=== PATIENT | female | born 1950 | race Caucasian/White ===

== ENCOUNTER → 2019-12-07 | Outpatient (CLI) | payer MEDICARE ==
[~2019-12-07] MED LIST: ACID1TAB PO; ATOR1TAB19 PO; CIPR750T2 PO; LIDOCAINE 1% MDV 20ML VIAL As Ordered ONE; LOSA100T50 PO; METO1TAB32 PO; NITR-67 PO; OMEP40CA97 PO; OXYB5TAB10 PO; SODIUM BICARBONATE 8.4% INJ 50MEQ 50 ML VIAL As Ordered ONE; TIZA2CAP PO; VITA500030 PO
[2019-12-07 11:24] VITALS: BP 168/72
--- NOTE | 2019-12-07 20:13 | REP ---
CT-guided para cannula abscess drainage The procedure is performed by NORA Baum, under the direct supervision of Dr. Fowler. The risks and benefits of the procedure were explained to the patient and informed consent was obtained both orally and written. Directly prior to the start of the procedure, a formal timeout was done in the exam room. The pelvic abscess was localized using CT guidance. Skin was prepped and draped in the usual sterile fashion. Approximately 15 ml of buffered lidocaine was used as a local anesthetic. Using CT guidance and 8-Amharic multi side-hole pigtail catheter was inserted and advanced into the abscess. Approximately 15 ml of brown pus was obtained and sent to the lab further analysis. Dr. Nolen was called and asked about placing the patient on the post procedural antibiotic. The patient will be followed up with Dr. Nolen and is office. CT images obtained directly after the biopsy showed the to to be in good placement. After the appropriate amount of monitored convalescence the patient was discharged from the department. Reviewed by NORA Vasquez 12/07/2019 04:39 P Electronically Signed by Reji Fowler MD 12/07/2019 08:03 P
== END ==
LOC: M IRPRO 07:59
PROVIDERS: ATTEND Surgery
DX: K65.1 Peritoneal abscess (principal)

== ENCOUNTER → 2019-12-22 | Outpatient (CLI) | payer MEDICARE ==
[~2019-12-22] MED LIST changes: +GASTROGRAFIN SOLUTION 30ML (Q9963) As Ordered ONE; +ISOVUE-370 76% 100ML VIAL (Q9967) As Ordered ONE; -SODIUM BICARBONATE 8.4% INJ 50MEQ 50 ML VIAL As Ordered ONE
--- NOTE | 2019-12-22 10:07 | REP ---
CT ABDOMEN PELVIS WITH IV AND ORAL CONTRAST: HISTORY: Vesicointestinal fistula. Comparison is made with outside CT study from November 11, [address] guided percutaneous catheter drainage images from December 07, 2019. The patient has a diverticular abscess along the superior wall of the bladder with bladder gas consistent with fistula. A percutaneous catheter was placed December 07, 2019. CT CONTRAST DOSE: 100 mL of intravenous Isovue [address] FINDINGS: Digital preliminary field scout radiographs demonstrate that the percutaneous pigtail catheter has partially withdrawn or dislodged and is seen in the anterior abdominal wall subcutaneous space. Bowel gas pattern is normal. On axial CT images, the lung bases are clear. There is a small subcentimeter cyst in the left lobe of the liver. Post cholecystectomy clips are seen. No focal hepatic or splenic mass lesion is observed. No adrenal abnormality is seen. There are bilateral parapelvic renal cysts. There are also small cortical renal cysts. No hydronephrosis is appreciated. Normal appendix is seen. No retroperitoneal mass or adenopathy is observed. Small and large bowel loops are unremarkable in the upper abdomen. Pelvic CT images demonstrate mild persistent mural thickening of the diverticular segment of sigmoid colon. There is some persistent pericolonic streaking. The percutaneously placed pigtail catheter is indeed partially dislodged out into the anterior subcutaneous space. The anterior supravesical abscess cavity is decreased in size from November 11, 2019 but persists. It measures 3.9 cm anterior-posterior x 3.1 cm right to left x 2.9 cm cranial to caudal. It contains fluid and gas. Its wall is thickened particularly along the interface with the urinary bladder. There is an air-fluid level in the urinary bladder lumen again noted as well consistent with the clinical history of colovesical fistula. Uterus is surgically absent. There is no evidence of free intraperitoneal air. No new fluid collection is seen. IMPRESSION: 1. The recently placed percutaneous drainage catheter has partially dislodged into the anterior subcutaneous space. The catheter is no longer within the supravesical abscess. 2. The supravesical abscess cavity is decreased in size compared to the November 11, 2019 but persists measuring 3.9 x 3.1 x 2.9 cm. 3. Air-fluid level persists in the urinary bladder consistent with a history of a colovesical fistula. Electronically Signed by Reji Fowler MD 12/22/2019 11:00 A
[2019-12-22 16:20] VITALS: BP 128/66
--- NOTE | 2019-12-23 09:15 | REP ---
CT-GUIDED PELVIC ABSCESS DRAIN The procedure was performed under the direct supervision of Dr. Mcclain. The patient has a pelvic abscess which was drained previously on 12/07/2019. The drain became dislodged. The patient is referred for reinsertion of a drainage catheter into the pelvic abscess. The risks and benefits of the procedure were explained to the patient and informed consent was obtained. The existing catheter was removed. The pelvic abscess was localized using CT guidance. The skin was prepped and draped in a sterile fashion. 1% lidocaine was used as a local anesthetic. Using CT guidance an 8-Polish Skater APDL catheter was inserted using trocar technique. 25 ml of beige/red colored fluid was withdrawn and sent to the lab for analysis. The abscess cavity was flushed with four 5 ml aliquots of sterile saline. The catheter was affixed to the skin and a sterile dressing was applied. The catheter was connected to a gravity drainage bag. The patient tolerated the procedure well and there were no immediate complications. After the appropriate amount of monitored convalescence the patient was discharged from the department. Electronically Signed by NORA Mario 12/22/2019 05:07 P Electronically Signed by Ez Mcclain MD 12/23/2019 09:05 A
== END ==
LOC: M RAD 07:00
PROVIDERS: ATTEND Surgery
DX: N32.1 Vesicointestinal fistula (principal); K65.1 Peritoneal abscess
CPT/HCPCS: 74177; 77012; 87070; 87075; 87076; 87077; 87186; 87205; Q9963; Q9967

== ENCOUNTER 2020-01-01 12:12 | Emergency (ER) | payer MEDICARE ==
[~2020-01-01] VITALS: Ht 167.6 cm; Wt 96.6 kg
[~2020-01-01 12:12] MED LIST changes: -GASTROGRAFIN SOLUTION 30ML (Q9963) As Ordered ONE; -ISOVUE-370 76% 100ML VIAL (Q9967) As Ordered ONE; -LIDOCAINE 1% MDV 20ML VIAL As Ordered ONE
[2020-01-01 13:26] LABS: BASO # 0.1 10^3/uL (0.0-0.2); BASO % 1.2 % (0.0-1.0); EOS # 0.2 10^3/uL (0.0-0.5); EOS % 4.9 % (0.0-3.0); HEMATOCRIT 30.4 % (36.0-47.0); HEMOGLOBIN 9.8 g/dl (12.0-15.5); LYMPH # 1.4 10^3/uL (1.5-5.0); LYMPH % 31.5 % (24.0-44.0); MEAN CORPUSCULAR HEMOGLOBIN 27.8 pg (27.0-33.0); MEAN CORPUSCULAR HGB CONC 32.2 g/dl (32.0-36.5); MEAN CORPUSCULAR VOLUME 86.4 fl (80.0-96.0); MONO # 0.3 10^3/uL (0.0-0.8); MONO % 7.2 % (0.0-5.0); NEUTROPHILS # 2.4 10^3/uL (1.5-8.5); NEUTROPHILS % 54.5 % (36.0-66.0); PLATELET COUNT, AUTOMATED 269 10^3/uL (150-450); RED BLOOD COUNT 3.52 10^6/uL (4.00-5.40); WHITE BLOOD COUNT 4.3 10^3/uL (4.0-10.0)
[2020-01-01 14:01] LABS: ALBUMIN 3.1 GM/DL (3.2-5.2); BILIRUBIN,TOTAL 0.3 MG/DL (0.2-1.0); CALCIUM LEVEL 9.1 MG/DL (8.8-10.2); CREATININE FOR GFR 0.99 MG/DL (0.55-1.30); GLOMERULAR FILTRATION RATE 59.2 (>45); POTASSIUM SERUM 4.3 MEQ/L (3.5-5.1)
[2020-01-01] MEDS ORDERED: ISOVUE-370 76% 100ML VIAL (Q9967) As Ordered ONE (14:04)
[2020-01-01 15:03] VITALS: BP 147/63
--- NOTE | 2020-01-01 15:47 | REP ---
HISTORY: Followup pelvic abscess. COMPARISON: Percutaneous abscess CT guided drainage images of 12/07/2019, preprocedural CT of 11/11/2019 and the latest prior contrast enhanced CT of 12/22/2019. Those images include a reinsertion of the drainage catheter obtained during repeat CT guided tube placement. CONTRAST: 100 mL Isovue-370 FINDINGS: The lung bases remain clear. No pleural or pericardial effusions have developed. There is no significant change in the appearance of the liver, spleen, pancreas, adrenal glands or kidneys. Bilateral renal parapelvic cysts, status quo. There is no significant change in the appearance of the abdominal aorta or periaortic regions. There is no significant change in the appearance of the intraabdominal bowel loops or their mesenteries. There is no evidence of free intraperitoneal air in the abdomen. CT PELVIS: Since the latest prior exam, the pelvic drainage tube draining a known suprapubic abscess appears essentially unchanged when compared to the post procedural CT guided drainage tube placement of 12/22/2019. There has been no evidence of increase in the abscess at this time, although a significant amount of phlegmonous material remains in the left anterior hemipelvis abutting the urinary bladder. Note is again made of a large amount of air density within the urinary bladder consistent with the patient's known history of colovesical fistula. I see no definite evidence of free air in the pelvis. There is sigmoid colon diverticulosis, status quo. No free pelvic fluid has developed. No pelvic sidewall adenopathy has developed. Bone window technique throughout the exam shows no evidence of significant change in the appearance of the osseous structures. There is air density in the extrapelvic anterior adipose tissue along the drainage tube, but that air density does not communicate with the intrapelvic contents and is localized. IMPRESSION: 1. Pelvic drainage tube in place as described above without evidence of worsening pelvic abscess. 2. Other findings as described above. Electronically Signed by Abdias Michelle DO 01/01/2020 04:00 P
== END 2020-01-01 15:05 | disposition home or self-care (01) ==
LOC: M ED 12:12
DX: T85.628A Displacement of other specified internal prosthetic devices, implants and grafts, initial encounter (principal); Y92.9 Unspecified place or not applicable; Y93.9 Activity, unspecified; I10 Essential (primary) hypertension; K57.92 Diverticulitis of intestine, part unspecified, without perforation or abscess without bleeding; Z87.891 Personal history of nicotine dependence; N32.1 Vesicointestinal fistula; Z79.899 Other long term (current) drug therapy; Z91.89 Other specified personal risk factors, not elsewhere classified
CPT/HCPCS: 74177; 80053; 85025; 99284; Q9967

== ENCOUNTER 2020-01-07 07:03 | Day surgery (SDC) | payer MEDICARE ==
[~2020-01-07] VITALS: Ht 165.1 cm; Wt 96.2 kg
[~2020-01-07 07:03] MED LIST changes: +IBUP200C25 PO; +LR 1,000 ML IV ONE; +NS 1,000 ML IV SCH
[2020-01-07] MEDS ORDERED: LIDOCAINE 2% INJ 100 MG/5 ML SDV (FOR ANES.) As Ordered ONE (09:36)
[2020-01-07] MEDS ORDERED: propofoL 200 MG/20 ML VIAL As Ordered ONE ×3 (09:36→10:29)
--- NOTE | 2020-01-07 10:48 | ROOR ---
Patient Name: Maria De Jesus Claudio Procedure Date: 01/07/2020 6:48 AM Date of : 1950 Age: 69 Room: [facility] Gender: Female Note Status: Finalized Procedure: Colonoscopy Indications: Abnormal CT of the GI tract, Suspected diverticulitis, colovesical fistula/chronic abscess Providers: Balwinder Nolen MD Referring MD: 1. No Referring Physician 1. No Referring Physician, Admin. Requesting Provider: Medicines: Monitored Anesthesia Care Complications: No immediate complications. Procedure: Pre-Anesthesia Assessment: - Prior to the procedure, a History and Physical was performed, and patient medications and allergies were reviewed. The patient is competent. The risks and benefits of the procedure and the sedation options and risks were discussed with the patient. All questions were answered and informed consent was obtained. Patient identification and proposed procedure were verified by the physician, the nurse and the wing mailer machine operator in the procedure room. Mental Status Examination: alert and oriented. Airway Examination: normal oropharyngeal airway and neck mobility. Respiratory Examination: clear to auscultation. CV Examination: normal. Prophylactic Antibiotics: The patient does not require prophylactic antibiotics. Prior Anticoagulants: The patient has taken no previous anticoagulant or antiplatelet agents. ASA Grade Assessment: III - A patient with severe systemic disease. After reviewing the risks and benefits, the patient was deemed in satisfactory condition to undergo the procedure. The anesthesia plan was to use monitored anesthesia care (MAC). Immediately prior to administration of medications, the patient was re-assessed for adequacy to receive sedatives. The heart rate, respiratory rate, oxygen saturations, blood pressure, adequacy of pulmonary ventilation, and response to care were monitored throughout the procedure. The physical status of the patient was re-assessed after the procedure. The Colonoscope was introduced through the anus and advanced to the cecum, identified by appendiceal orifice and ileocecal valve. The colonoscopy was technically difficult and complex due to multiple diverticula in the colon and restricted mobility of the colon. The patient tolerated the procedure well. The quality of the bowel preparation was good. Findings: Hemorrhoids were found on perianal exam. Evidence for diverticulosis, partial narrowing, fixed colon at expected/suspected site of diverticulitis/colovesical fistula starting at about 20 cms to 30 cms, with mucoid discharge, no evidence for intraluminal active infection/erythema, purulent discharge. No increase in air/output from percutaneous drain. A few scattered diverticula over descending and ascending colon A diminutive polyp was found in the transverse colon. The polyp was flat. The polyp was removed with a cold snare. Resection and retrieval were complete. Estimated blood loss was minimal. No additional abnormalities were found on retroflexion. Impression: - Hemorrhoids found on perianal exam. - Moderate diverticulosis in the sigmoid colon, in the descending colon and in the ascending colon. There was narrowing of the colon in association with the diverticular opening. There was no evidence of diverticular bleeding. - One diminutive polyp in the transverse colon, removed with a cold snare. Resected and retrieved. Recommendation: - Discharge patient to home (ambulatory). - Follow up with me as scheduled next week. Plan for colon resection to be scheduled/determined. continue drain. Refill abx . Balwinder Nolen MD Balwinder Nolen MD 01/07/2020 10:48:07 AM Electronically signed by Balwinder Nolen MD Number of Addenda: 0 Note Initiated On: 01/07/2020 6:48 AM Estimated Blood Loss: Estimated blood loss was minimal.
[2020-01-07 11:10] VITALS: BP 118/50
== END 2020-01-07 11:43 | disposition home or self-care (01) ==
LOC: M OPP 07:03
PROVIDERS: ATTEND Surgery
DX: K64.9 Unspecified hemorrhoids (principal); D12.6 Benign neoplasm of colon, unspecified; K57.30 Diverticulosis of large intestine without perforation or abscess without bleeding; R93.3 Abnormal findings on diagnostic imaging of other parts of digestive tract; Z91.048 Other nonmedicinal substance allergy status

== ENCOUNTER 2020-01-28 06:08 | Inpatient (IN) | payer MEDICARE ==
[~2020-01-28] VITALS: Ht 165.1 cm; Wt 95.3 kg
[2020-01-28] VITALS (8 sets, daily range): BP systolic 109–122; BP diastolic 59–68; O2SAT 95
[~2020-01-28 06:08] MED LIST changes: +LIDOCAINE 1% MDV 20ML VIAL SQ PRN; -LR 1,000 ML IV ONE; -NS 1,000 ML IV SCH; +SULF1TAB93 PO
[2020-01-28] MEDS ORDERED: cefoTEtan DISODIUM 2 GM in D5W MINI-BAG PLUS 50 ML IV ONE (06:15)
[2020-01-28] MEDS ORDERED: ALVIMOPAN 12 MG CAPSULE (ENTEREG) PO ONE (06:15)
[2020-01-28] MEDS ORDERED: HEPARIN SOD (PORCINE) 5000UNITS/ML VIAL (J1644 PER 1000UNITS) SQ ONE (06:15)
[2020-01-28] MEDS ORDERED: LR 1,000 ML IV ONE (06:15)
[2020-01-28] MEDS ORDERED: metroNIDAZOLE 500 MG in IV 1 EA IV ONE (06:15)
[2020-01-28] MEDS ORDERED: MIDAZOLAM INJ 2MG/2ML VIAL (J2250 PER 1MG) As Ordered ONE (07:03)
[2020-01-28] MEDS ORDERED: fentaNYL 250 MCG/5 ML INJECTION (J3010) As Ordered ONE (07:03)
[2020-01-28] MEDS ORDERED: propofoL 200 MG/20 ML VIAL As Ordered ONE (07:04)
[2020-01-28] MEDS ORDERED: LIDOCAINE 2% 100MG/5ML SDV (FOR ANES.) As Ordered ONE (07:04)
[2020-01-28] MEDS ORDERED: ONDANSETRON 4MG/2ML VIAL As Ordered ONE (07:04)
[2020-01-28] MEDS ORDERED: ePHEDrine SULFATE 25 MG/5 ML(5MG/ML) SYRINGE As Ordered ONE ×2 (07:04→08:51)
[2020-01-28] MEDS ORDERED: PHENYLephrine HCL 500 MCG/5 ML (100MCG/ML) SYRINGE (J2370) As Ordered ONE ×3 (07:04→12:45)
[2020-01-28] MEDS ORDERED: SUGAMMADEX SODIUM 500 MG/5 ML VIAL (BRIDION) As Ordered ONE (07:04)
[2020-01-28] MEDS ORDERED: ROCURONIUM BROMIDE 50 MG/5 ML VIAL As Ordered ONE ×2 (07:04→08:33)
[2020-01-28] MEDS ORDERED: dexameTHASONE 4 MG/ML 1ML VIAL (J1100 PER 1MG) As Ordered ONE (07:04)
[2020-01-28] MEDS ORDERED: BUPIVACAINE HCL 0.25% 30ML VIAL As Ordered ONE (07:13)
[2020-01-28] MEDS ORDERED: LIDOCAINE 1% SDV 30ML VIAL As Ordered ONE (07:13)
[2020-01-28] MEDS ORDERED: CONRAY-60 60% 50ML VIAL (Q9961) As Ordered ONE (07:13)
[2020-01-28] MEDS ORDERED: BUPIVACAINE LIPOSOME/PF 1.3% 20ML VIAL (13.3MG/ML)(EXPAREL)(C9290 PER1MG) As Ordered ONE (08:00)
[2020-01-28] MEDS ORDERED: NEOM500T (08:03)
[2020-01-28] MEDS ORDERED: GNP650TA8 PO (08:03)
[2020-01-28] MEDS ORDERED: METR-265 (08:03)
[2020-01-28] MEDS ORDERED: HYDROmorphone HCL 2 MG/ML 1ML VIAL (J1170) As Ordered ONE (09:22)
--- NOTE | 2020-01-28 09:34 | RO ---
DATE OF PROCEDURE: 01/28/2020 PREPROCEDURE DIAGNOSIS: Diverticulitis, colovesical fistula. POSTPROCEDURE DIAGNOSIS: Diverticulitis, colovesical fistula. PROCEDURE: Cystoscopy, left ureteral stent placement. SURGEON: Dr. Aaron Muniz LONG TERM CARE SOCIAL WORKER: None. ANESTHESIA: General. OPERATIVE INDICATIONS: This is a 69-year-old female who has had diverticulitis and a colovesical fistula who was brought to the operating room today by Dr. Nolen for bowel resection. Given the location of the fistula in the left side of the bladder, urology was asked to place a left sided ureteral stent to help identify the ureter. DESCRIPTION OF PROCEDURE: The patient was brought to the operating room and general anesthesia was induced. Prophylactic antibiotics were infused. She was then placed in dorsal lithotomy position and prepped and draped in the usual sterile fashion. At this point, a rigid cystoscope was inserted into the urethral meatus and advanced into the bladder. The bladder was then thoroughly examined. Of note, there was a moderate sized bullous mass at the dome of the bladder on the left side. There was no active drainage from this mass. It did not appear to be anywhere near the ureteral orifices. Both ureteral orifices were orthotopic. At this point, I inserted a 5 [place] open ended ureteral catheter into the left ureteral orifice and then advanced it up into the left collecting system. I then removed the cystoscope and inserted an [address] [place]undian 3- way catheter. The 5 [place]undian open ended ureteral catheter was then tied down to the 3-way catheter using an 0 silk suture. The 3-way catheter was connected to gravity drainage and the irrigation port of the catheter was connected to cystoscopy tubing. I then injected 2 mL of ICG into the left collecting system using the ureteral catheter. I left a syringe hooked up to the ureteral catheter and this marked the conclusion of my portion of the procedure. I then turned case over to Dr. Nolen for him to perform his procedure. Estimated blood loss: 0 mL. Complications: None. Specimen: None. Plan: Dr. Nolen will utilize the ICG and the ureteral catheter to help identify the left ureter intraoperatively. He can then remove the ureteral catheter postoperatively. [facility]
[2020-01-28] MEDS ORDERED: GLUCAGON INJ 1MG VIAL As Ordered ONE (11:46)
[2020-01-28] MEDS: LR 1,000 ML IV SCH ×2 (13:22→21:06)
[2020-01-28] MEDS ORDERED: oxyCODONE 5MG TAB PO PRN ×2 (13:30)
[2020-01-28] MEDS ORDERED: MORPHINE 4 MG/ML 1ML VIAL/SYRINGE (J2270) IV PRN (13:30)
[2020-01-28] MEDS ORDERED: ONDANSETRON 4MG/2ML VIAL IV PRN ×2 (13:30→14:00)
[2020-01-28] MEDS ORDERED: fentaNYL 100 MCG/2 ML INJECTION (J3010) IV PRN (14:00)
[2020-01-28] MEDS ORDERED: PERCOCET 5MG/325MG TAB PO PRN (14:00)
[2020-01-28] MEDS: ACETAMINOPHEN TAB 650MG DOSE (2X325MG) PO SCH ×3 (14:00→21:05)
[2020-01-28] MEDS ORDERED: METOCLOPRAMIDE INJ 10MG/2ML VIAL (J2765 PER 1) IV PRN (14:00)
[2020-01-28] MEDS ORDERED: LR 1,000 ML IV SCH (14:00)
[2020-01-28] MEDS: KETOROLAC 30 MG/ML 1ML VIAL IV SCH ×2 (16:07→23:57)
[2020-01-28] MEDS: OMEPRAZOLE 20 MG CAP PO SCH (17:52)
[2020-01-28] MEDS: cefoTEtan DISODIUM 1 GM in D5W MINI-BAG PLUS 50 ML IV SCH (20:10)
[2020-01-28] MEDS: ALVIMOPAN 12 MG CAPSULE (ENTEREG) PO SCH (20:11)
[2020-01-28] MEDS: oxyBUTYnin 5 MG TAB PO SCH (20:11)
[2020-01-28] MEDS: ATORVASTATIN 10 MG TAB PO SCH (20:11)
[2020-01-28] MEDS ORDERED: CALCIUM CARBONATE 500 MG CHEW U/D PO PRN (21:00)
[2020-01-28] MEDS ORDERED: CALCIUM CARBONATE 500 MG CHEW U/D PO ONE (21:00)
[2020-01-28] MEDS: metroNIDAZOLE 500 MG in IV 1 EA IV SCH (21:06)
[2020-01-29] MEDS: ACETAMINOPHEN TAB 650MG DOSE (2X325MG) PO SCH ×6 (01:42→21:06)
[2020-01-29 02:15] VITALS: BP 101/55
[2020-01-29] MEDS: LR 1,000 ML IV SCH ×2 (05:09→17:13)
[2020-01-29] MEDS: metroNIDAZOLE 500 MG in IV 1 EA IV SCH ×3 (05:09→21:05)
[2020-01-29 06:00] VITALS: BP 102/54
[2020-01-29] MEDS: KETOROLAC 30 MG/ML 1ML VIAL IV SCH ×3 (08:08→23:31)
[2020-01-29] MEDS: OMEPRAZOLE 20 MG CAP PO SCH (08:08)
[2020-01-29] MEDS: LOSARTAN 50MG TABLET PO SCH (08:09)
[2020-01-29] MEDS: ENOXAPARIN 40MG/0.4ML SYRINGE (J1650 PER 10MG) SC SCH (08:09)
[2020-01-29] MEDS: METOPROLOL SUCC *XL* 25MG TAB (TopROL *XL*) PO SCH (08:09)
[2020-01-29] MEDS: oxyBUTYnin 5 MG TAB PO SCH ×2 (08:09→20:05)
[2020-01-29] MEDS: ALVIMOPAN 12 MG CAPSULE (ENTEREG) PO SCH ×2 (08:09→20:05)
[2020-01-29 08:10] LABS: BASO % 0.1 % (0.0-1.0); EOS % 0.1 % (0.0-3.0); HEMATOCRIT 27.9 % (36.0-47.0); HEMOGLOBIN 8.8 g/dl (12.0-15.5); LYMPH # 0.9 10^3/uL (1.5-5.0); LYMPH % 11.6 % (24.0-44.0); MEAN CORPUSCULAR HEMOGLOBIN 28.1 pg (27.0-33.0); MEAN CORPUSCULAR HGB CONC 31.5 g/dl (32.0-36.5); MEAN CORPUSCULAR VOLUME 89.1 fl (80.0-96.0); MONO # 0.5 10^3/uL (0.0-0.8); MONO % 6.6 % (0.0-5.0); NEUTROPHILS # 6.2 10^3/uL (1.5-8.5); NEUTROPHILS % 81.1 % (36.0-66.0); PLATELET COUNT, AUTOMATED 144 10^3/uL (150-450); RED BLOOD COUNT 3.13 10^6/uL (4.00-5.40); WHITE BLOOD COUNT 7.7 10^3/uL (4.0-10.0)
[2020-01-29 08:38] LABS: CALCIUM LEVEL 8.2 MG/DL (8.8-10.2); CREATININE FOR GFR 1.5 MG/DL (0.55-1.30); GLOMERULAR FILTRATION RATE 36.7 (>45); POTASSIUM SERUM 4.4 MEQ/L (3.5-5.1)
--- NOTE | 2020-01-29 09:31 | IPNPDOC ---
Subjective General Date/Time Seen The patient was seen on 01/29/20 at 09:28. Subject Chief Complaint/History The patient is a 69-year-old female admitted with a reason for visit of Diverticulitis/Colovesical Fistula. Patient doing well at postop day 1 following her sigmoid colon resection. She reports feeling comfortable with minimal pain at the incision. She is tolerating clears. No passage of flatus yet. She denies any nausea or vomiting. No acute events overnight. Current Medications Current Medications Current Medications Medications (Trade) Dose Ordered Sig/Gene Route PRN Reason Start Time Stop Time Status Last Admin Dose Admin Acetaminophen (Tylenol Tab) 650 mg Q4H PO 01/28/20 14:00 01/29/20 05:09 Alvimopan (Entereg) 12 mg BID PO 01/28/20 21:00 02/02/20 20:59 01/29/20 08:09 Atorvastatin Calcium (Lipitor) 10 mg QHS PO 01/28/20 21:00 01/28/20 20:11 Calcium Carbonate (Tums) 1,000 mg Q6HP PRN PO HEARTBURN 01/28/20 21:00 Cefotetan Disodium 1 gm/ Dextrose 50 ml @ 100 mls/hr Q12H IV 01/28/20 20:00 01/28/20 20:10 Enoxaparin Sodium (Lovenox) 40 mg DAILY SC 01/29/20 09:00 01/29/20 08:09 Fentanyl Citrate (Sublimaze) 25 mcg Q5MP PRN IV PAIN LEVEL 5-10 01/28/20 14:00 01/28/20 15:00 DC Ketorolac Tromethamine (ToRADol) 30 mg Q8H IV 01/28/20 16:00 02/02/20 15:59 01/29/20 08:08 Lactated Ringer's 1,000 ml @ 100 mls/hr Q10H IV 01/28/20 14:00 01/28/20 15:00 DC Lactated Ringer's 1,000 ml @ 125 mls/hr Q8H IV 01/28/20 13:22 01/29/20 05:09 Lidocaine HCl (LIDOCAINE 1% MDV 20ml) 0.1 ml ONCE PRN SQ DISCOMFORT BEFORE IV START 01/28/20 06:00 01/28/20 13:47 DC Losartan Potassium (Cozaar) 100 mg DAILY PO 01/29/20 09:00 01/29/20 08:09 Metoclopramide HCl (REGLAN INJection) 10 mg Q6HP PRN IV NAUSEA OR VOMITING 01/28/20 14:00 01/28/20 15:00 DC Metoprolol Succinate (TopROL XL) 25 mg DAILY PO 01/29/20 09:00 01/29/20 08:09 Metronidazole 500 mg/IV Miscellaneous Supplies 100 ml @ 100 mls/hr Q8H IV 01/28/20 21:00 01/29/20 05:09 Morphine Sulfate (Morphine Sulfate Inj) 4 mg Q4H PRN IV severe pain 01/28/20 13:30 Omeprazole (PriLOSEC) 40 mg DAILY PO 01/28/20 09:00 01/29/20 08:08 Ondansetron HCl (ZOFRAN INJection) 4 mg Q4HP PRN IV NAUSEA OR VOMITING 01/28/20 14:00 01/28/20 15:00 DC Ondansetron HCl (ZOFRAN INJection) 4 mg Q6HP PRN IV NAUSEA OR VOMITING 01/28/20 13:30 Oxybutynin Chloride (Ditropan) 5 mg BID PO 01/28/20 21:00 01/29/20 08:09 Oxycodone HCl (Roxicodone, Oxyir) 5 mg Q6H PRN PO MILD/MODERATE PAIN (PS 1-7) 01/28/20 13:30 Oxycodone HCl (Roxicodone, Oxyir) 10 mg Q6H PRN PO SEVERE PAIN (PS 8-10) 01/28/20 13:30 01/28/20 16:08 Oxycodone/ Acetaminophen (Percocet 5mg/ 325mg Tablet) 1 tab ASDIRECTED PRN PO PAIN LEVEL 1-4 01/28/20 14:00 01/28/20 15:00 DC Allergies Coded Allergies: TAPE (Verified Allergy, Intermediate, "SKIN COMES OFF", 01/18/20) Objective Physical Examination Examination GENERAL APPEARANCE: Patient looks comfortable. SKIN: Warm and moist. HEENT: Normocephalic, atraumatic. [place] palpebral conjunctiva, anicteric sclerae. Lips and mucosa appear moist. NECK: Supple, no thyromegaly. No obvious jugular venous distention. LUNGS: Clear to auscultation bilaterally. No wheezing appreciated. HEART: No chest wall abnormalities. Regular rate and rhythm with no murmurs appreciated. ABDOMEN: Abdomen is minimally distended, soft, active bowel sounds. Port sites covered with Dermabond, clean dry and intact including the extraction site. Drain is serosanguineous. Minimal tenderness along the extraction site as well as suprapubic/lower abdominal wall where the abscess is. No redness at for the abscess was. EXTREMITIES: Extremities have no deformities. No edema identified. Vital Signs Vital Signs Date Time Temp Pulse Resp B/P (MAP) Pulse Ox O2 Delivery O2 Flow Rate FiO2 01/29/20 08:09 76 102/54 01/29/20 06:00 97.9 16 95 Room Air 01/29/20 02:15 2.0 I&Os I&O- Last 24 Hours up to 6 AM 01/29/20 06:00 Intake Total 4590 ml Output Total 1925 ml Balance 2665 ml Laboratory Data Labs 24H Laboratory Tests 2 01/29/20 07:37: Immature Granulocyte % (Auto) 0.5, Neutrophils (%) (Auto) 81.1H, Lymphocytes (%) (Auto) 11.6L, Monocytes (%) (Auto) 6.6H, Eosinophils (%) (Auto) 0.1, Basophils (%) (Auto) 0.1, Neutrophils # (Auto) 6.2, Lymphocytes # (Auto) 0.9L, Monocytes # (Auto) 0.5, Eosinophils # (Auto) 0.0, Basophils # (Auto) 0.0, Nucleated Red Blood Cells % (auto) 0.0, Anion Gap 7L, Glomerular Filtration Rate 36.7L, Calc ium Level 8.2L CBC/BMP Laboratory Tests 01/29/20 07:37 Impression POD1 Robotic Assisted Laparoscopic Sigomoid Colectomy, drainage of abscess, takedown of colovesical fistula anemia postop - multifactorial from postop bloodloss and hemodilutin from fluids given intraop and periop (>3L). baseline is only 9.8, not symptomaic doing well ambulate the hallways today come down on IVF soft diet continue with pain regimen, dvt prophylaxis keep smith -periop, bladder involvement in colovesical fistula Plan / VTE VTE Prophylaxis Ordered?: Yes Plan / Urinary Catheter Reason for insertion/continuin: Perioperative AYALA ROSARIO MD Jan 29, 2020 09:31
[2020-01-29] MEDS: cefoTEtan DISODIUM 1 GM in D5W MINI-BAG PLUS 50 ML IV SCH ×2 (09:34→20:05)
[2020-01-29 10:00] VITALS: BP 110/60
[2020-01-29 14:00] VITALS: BP 110/54
--- NOTE | 2020-01-29 15:54 | ROOPDOC ---
[facility] Report Of Operation Report of Operation DATE OF PROCEDURE: 01/28/20 PREPROCEDURE DIAGNOSES: colovesical fistula, diverticulitis. POSTPROCEDURE DIAGNOSES: colovesical fistula, diverticulitis with abscess. PROCEDURE: Robotic assisted laparoscopic sigmoid colon resection, evacuation of abscess. Bilateral Transversus abdominal plane block (TAP) under laparoscopic guidance. Use of ICG/firefly for identification of the ureter, perfusion testing Flexible sigmoidoscopy Partial release of splenic flexure laparoscopically SURGEON: Balwinder Nolen MD ETL TESTER: Deborah Best NP provided intraoperative on field assistance for instrument exchange, retraction, suctioning, and specimen extraction and port site and the extraction site closure :Dr. Urbano Jesus who helped with the proctocolic anastomosis and intraoperative flexible sigmoidoscopy ANESTHESIA: General Anesthesia TAP block with mixture of 1/4% marcaine, exparel and 20 mL saline ESTIMATED BLOOD LOSS: Approximately 100 mL. COMPLICATIONS: none. REMARKS: Patient is a 69 F with a history of fecaluria, passing gas with urination found to have evidence for pericolic abscess, colovesical fistula, colonoscopy findings of diverticulosis. She has had percutaneous drainage of her abscess done twice and has had prolonged antibiotic course without resolution of her symptoms. She is now for sigmoid colectomy, takedown of her colovesical fistula today. PROCEDURE NOTE: adhered and inflamed midsigmoid colon adhered to the anterior abdominal wall, dome of the bladder with an abdominal wall abscess containing food fragments and fecalith. Rectum appears soft and healthy, descending colon with minimal diverticulosis, likewise healthy. DESCRIPTION OF PROCEDURE: Patient received Cipro T10 2 grams IV and metronidazole 500 mg IV for wound prophylaxis. She received 5000 units of heparin subcutaneously for DVT prophylaxis. She underwent full mechanical as well as antibiotic bowel prep the night prior. She is compression boots and Kade's for DVT prophylaxis. She is under general anesthesia in the lithotomy position. She underwent cystoscopy with placement of a left ureteral stent. Cystoscopy reveals inflammation at the dome of the bladder with no involvement of the trigone. 2 mL of ICG was injected to the ureter stent. We paused for a surgical timeout using both pre-incision safety checklist to verify correct patient, procedure site and additional clinical information prior to beginning the procedure. I initially entered the abdomen a couple of cms on her left upper quadrant area via a Veress needle intra-abdominally placement was confirmed with saline drop technique. CO2 insufflation started to pressure 15 mmHg. Using the same incision an 8 mm robotic trocar was placed under direct vision of a 5mm laparoscope. The area underneath the insertion site was inspected for injury and none was found. An initial diagnostic laparoscopy was performed. There was no free fluid. She has thick omentum covering most of the bowels. The midportion of the sigmoid noted to be adhered to the lower abdominal wall at the midline precluding view of the pelvis. The involved abdominal wall as internal bulging as well as signs of chronic inflammation consistent with the most likely the pocket of abscess that we are appreciating on CT. The descending colon appears mildly distended. She was placed on the steep Trendelenburg position at about 20, with the left side tilted upwards about another 8. The robotic trochars were placed roughly about a fist apart with the 12 mm stapler trocar 2 cm medial to the level of the right ASIS and the left-sided ports stacked up obliquely towards the right upper quadrant area. A 5 mm assist port was placed in between the umbilical and right lower quadrant port. The da [place]ira robot tower is then maneuvered into place with the patient's right side and the trochars were docked onto the robotic arms. The robotic instruments were placed into view. An 8 mm 30 laparoscope, tips of fenestrated grasper, force bipolar forceps and initially laparoscopic scissors connected to a monopolar cautery and then later on vessel sealer was used and 60 mm sure form stapler with a green load was used. I then scrubbed to control of the camera and instruments at the surgeon's console while my insurance assistant remains in the field managing the robot, instruments, arms and retraction. The small bowel was retracted out of view. I worked on mostly bluntly dissecting the mid sigmoid colon from the lower abdominal wall. Once we broke through the capsule of the abscess there was drainage of pus as well as extruded food materials and the fecalith. Once the sigmoid colon was fully free I could mobilize the colon and further evaluate the distal sigmoid and rectum. The rectum appears healthy and soft and pliable. Using ICG and firefly the course of the ureter along the pelvic sidewall and left retroperitoneum was visualized during the dissection. I started my colon dissection by freeing up the lateral attachments of the sigmoid colon along the left gutter and the peritoneal reflection of the sigmoid mesentery off the pelvic side wall with attention to the course of the left ureter. I then switched my colon dissection with a medial to lateral approach coming underneath the course of the superior rectal artery coming off from the DANTE. The DANTE was skeletonized past the branching of the left colic artery to preserve the left colic artery. This was divided with vessel sealer. Proceeding distally I opened up the peritoneal reflection on the right side or medial side of the mesentery and the rest of the see Anneliese mesentery was divided to enter the mesorectal plane as we approached the proximal rectum. Dissection was continued to the top of the rectum where it appears healthy and pliable. At this stage we then shifted proximally dissecting the descending colon off its lateral attachments to the left sidewall and retroperitoneum along the white line of Toldt. The descending colon itself was only minimal diverticulosis and appears pliable and healthy oblique minimally thickened. I chose an area just off the confluence of the descending colon and sigmoid colon as my line of transection. The mesentery along this site was divided to the colon wall. ICG was used to pinpoint the line of transection making sure we have adequate perfusion to the stump of the colon were transection will occur. This was then divided with a 45 mm stapler with blue load. We then switched back to the rectum distally. The rectum was transanally dilated with the EEA sizers and distally the rectum could only accommodate a 25 mm EEA sizer. 1 mg of glucagon was given and we did not get much further dilation. Thus I chose 25 mm EEA stapler. The rectum was transected with a vessel sealer and the EEA was introduced transanally and the anvil retrieved. The stump of the rectum was then closed with a firing of the 45 mm stapler with a green load. To gain more length the left-sided colon was freed up to the level of the splenic flexure with partial release of the splenic flexure laterally, posteriorly and partially medially but the IMV was preserved. The descending colon length was noted to be adequate after this. The descending colon was opened up removing the staple line with the robotic scissors using Bovie cautery. The anvil was then placed through to the descending colon stump and secured with a pursestring suture using 20V LOC. The epiploic appendage as well as excess adipose tissue to the stump of the descending colon was thinned out and a second layer of 20V locked suture was used to cinch the anvil in place. At this point as my insurance assistant was trying to reintroduce the EEA stapler transanally. Difficulty maneuvering through one of the curvatures of the rectum and had to free up the rectum anterolaterally over the left side to allow for better passage of the stapler. The spike of the stapler was then deployed anterior to the staple line. The anvil and the stapler was assembled, closed and fired. The stapler was retrieved and the anastomotic donuts were inspected and noted to be intact, robust in thickness. Flexible sigmoidoscopy was performed with insufflation along the anastomosis which was tested under water to look for the cage as well as to assess the staple line for health. There was minimal oozing at the staple line which stopped by itself. The 2 ends of the colon appears healthy. There was no bubbling or leakage noted during the test. ICG was again used to visualize adequate perfusion in 2 ends of the bowel. I again looked at the anterior abdominal wall were abscess pocked was then opened this further internally with further drainage of now mostly bloody fluid and I got more food debris from this area. At this point I scrubbed back in. I chose to extract over at the umbilical port site to avoid the abscess pocket on the lower mid abdomen. A 4 cm incision was created and deepened through to the subcutaneous tissue. The anterior and posterior fascia was opened and a True wound retractor was placed. The sigmoid colon specimen was retrieved. A 19 Brodie drain was placed with the drain coming out through the right lower quadrant port and the drain coursing just posterior to the anastomosis. The incision was then closed in layers with 2-0 Vicryl to close the posterior sheath and 1 Vicryl used to close the anterior fascia in a mattress fashion. The subcutaneous space was irrigated. The abdomen was then deflated. The drain was secured to the skin.. all skin incisions were closed with 4-0 monocryl in a subcuticular fashion and dermabond placed for dressing. Patient tolerated the procedure well. She was promptly awakened, extubated and brought to recovery room in stable condition. The Rosenberg catheter remain in place for postoperative monitoring. BALWINDER NOLEN MD Jan 29, 2020 15:54
[2020-01-29] MEDS: ATORVASTATIN 10 MG TAB PO SCH (20:05)
[2020-01-29 20:55] VITALS: BP 118/59
[2020-01-30] MEDS: ACETAMINOPHEN TAB 650MG DOSE (2X325MG) PO SCH ×6 (01:21→21:36)
[2020-01-30 01:54] VITALS: O2SAT 94
[2020-01-30 02:00] VITALS: BP 120/62
[2020-01-30] MEDS: LR 1,000 ML IV SCH (03:24)
[2020-01-30] MEDS: metroNIDAZOLE 500 MG in IV 1 EA IV SCH (05:27)
[2020-01-30 05:35] VITALS: BP 154/82
[2020-01-30 07:28] LABS: BASO % 0.5 % (0.0-1.0); EOS # 0.1 10^3/uL (0.0-0.5); EOS % 0.8 % (0.0-3.0); HEMATOCRIT 29.2 % (36.0-47.0); HEMOGLOBIN 9.5 g/dl (12.0-15.5); LYMPH # 0.7 10^3/uL (1.5-5.0); LYMPH % 11.1 % (24.0-44.0); MEAN CORPUSCULAR HEMOGLOBIN 28.9 pg (27.0-33.0); MEAN CORPUSCULAR HGB CONC 32.5 g/dl (32.0-36.5); MEAN CORPUSCULAR VOLUME 88.8 fl (80.0-96.0); MONO # 0.5 10^3/uL (0.0-0.8); MONO % 7.5 % (0.0-5.0); NEUTROPHILS # 5.2 10^3/uL (1.5-8.5); NEUTROPHILS % 79.5 % (36.0-66.0); PLATELET COUNT, AUTOMATED 146 10^3/uL (150-450); RED BLOOD COUNT 3.29 10^6/uL (4.00-5.40); WHITE BLOOD COUNT 6.6 10^3/uL (4.0-10.0)
[2020-01-30 07:49] LABS: CALCIUM LEVEL 8.6 MG/DL (8.8-10.2); CREATININE FOR GFR 1.09 MG/DL (0.55-1.30); POTASSIUM SERUM 3.8 MEQ/L (3.5-5.1)
[2020-01-30] MEDS: cefoTEtan DISODIUM 1 GM in D5W MINI-BAG PLUS 50 ML IV SCH (08:18)
[2020-01-30] MEDS: KETOROLAC 30 MG/ML 1ML VIAL IV SCH ×2 (08:19→16:52)
[2020-01-30] MEDS: oxyBUTYnin 5 MG TAB PO SCH ×2 (08:19→21:36)
[2020-01-30] MEDS: LOSARTAN 50MG TABLET PO SCH (08:19)
[2020-01-30] MEDS: ALVIMOPAN 12 MG CAPSULE (ENTEREG) PO SCH (08:20)
[2020-01-30] MEDS: OMEPRAZOLE 20 MG CAP PO SCH (08:20)
[2020-01-30] MEDS: METOPROLOL SUCC *XL* 25MG TAB (TopROL *XL*) PO SCH (08:20)
[2020-01-30] MEDS: ENOXAPARIN 40MG/0.4ML SYRINGE (J1650 PER 10MG) SC SCH (08:21)
--- NOTE | 2020-01-30 08:32 | IPNPDOC ---
Subjective General Date/Time Seen The patient was seen on 01/30/20 at 08:31. Subject Chief Complaint/History The patient is a 69-year-old female admitted with a reason for visit of Diverticulitis/Colovesical Fistula. she continues to do well postoperatively. She's tolerating soft foods. Has now passed flatus and had loose stools. Urine output is adequate with clear urine. Current Medications Current Medications Current Medications Medications (Trade) Dose Ordered Sig/Gene Route PRN Reason Start Time Stop Time Status Last Admin Dose Admin Acetaminophen (Tylenol Tab) 650 mg Q4H PO 01/28/20 14:00 01/30/20 05:27 Alvimopan (Entereg) 12 mg BID PO 01/28/20 21:00 02/02/20 20:59 01/30/20 08:20 Atorvastatin Calcium (Lipitor) 10 mg QHS PO 01/28/20 21:00 01/29/20 20:05 Calcium Carbonate (Tums) 1,000 mg Q6HP PRN PO HEARTBURN 01/28/20 21:00 Cefotetan Disodium 1 gm/ Dextrose 50 ml @ 100 mls/hr Q12H IV 01/28/20 20:00 01/30/20 08:18 Enoxaparin Sodium (Lovenox) 40 mg DAILY SC 01/29/20 09:00 01/30/20 08:21 Fentanyl Citrate (Sublimaze) 25 mcg Q5MP PRN IV PAIN LEVEL 5-10 01/28/20 14:00 01/28/20 15:00 DC Ketorolac Tromethamine (ToRADol) 30 mg Q8H IV 01/28/20 16:00 02/02/20 15:59 01/30/20 08:19 Lactated Ringer's 1,000 ml @ 75 mls/hr [id number] IV 01/28/20 13:22 01/30/20 03:24 Lactated Ringer's 1,000 ml @ 100 mls/hr Q10H IV 01/28/20 14:00 01/28/20 15:00 DC Lidocaine HCl (LIDOCAINE 1% MDV 20ml) 0.1 ml ONCE PRN SQ DISCOMFORT BEFORE IV START 01/28/20 06:00 01/28/20 13:47 DC Losartan Potassium (Cozaar) 100 mg DAILY PO 01/29/20 09:00 01/30/20 08:19 Metoclopramide HCl (REGLAN INJection) 10 mg Q6HP PRN IV NAUSEA OR VOMITING 01/28/20 14:00 01/28/20 15:00 DC Metoprolol Succinate (TopROL XL) 25 mg DAILY PO 01/29/20 09:00 01/30/20 08:20 Metronidazole 500 mg/IV Miscellaneous Supplies 100 ml @ 100 mls/hr Q8H IV 01/28/20 21:00 01/30/20 05:27 Morphine Sulfate (Morphine Sulfate Inj) 4 mg Q4H PRN IV severe pain 01/28/20 13:30 Omeprazole (PriLOSEC) 40 mg DAILY PO 01/28/20 09:00 01/30/20 08:20 Ondansetron HCl (ZOFRAN INJection) 4 mg Q4HP PRN IV NAUSEA OR VOMITING 01/28/20 14:00 01/28/20 15:00 DC Ondansetron HCl (ZOFRAN INJection) 4 mg Q6HP PRN IV NAUSEA OR VOMITING 01/28/20 13:30 Oxybutynin Chloride (Ditropan) 5 mg BID PO 01/28/20 21:00 01/30/20 08:19 Oxycodone HCl (Roxicodone, Oxyir) 5 mg Q6H PRN PO MILD/MODERATE PAIN (PS 1-7) 01/28/20 13:30 Oxycodone HCl (Roxicodone, Oxyir) 10 mg Q6H PRN PO SEVERE PAIN (PS 8-10) 01/28/20 13:30 01/28/20 16:08 Oxycodone/ Acetaminophen (Percocet 5mg/ 325mg Tablet) 1 tab ASDIRECTED PRN PO PAIN LEVEL 1-4 01/28/20 14:00 01/28/20 15:00 DC Allergies Coded Allergies: TAPE (Verified Allergy, Intermediate, "SKIN COMES OFF", 01/18/20) Objective Physical Examination Examination GENERAL APPEARANCE: Comfortable. SKIN: Warm and moist. HEENT: Normocephalic, atraumatic. [place] palpebral conjunctiva, anicteric sclerae. Lips and mucosa appear moist. NECK: Supple, no thyromegaly. No obvious jugular venous distention. LUNGS: Clear to auscultation bilaterally. No wheezing appreciated. HEART: No chest wall abnormalities. Regular rate and rhythm with no murmurs appreciated. ABDOMEN: Abdomen is somewhat more distended than yesterday, soft, active bowel sounds. Port sites and extraction site is clean dry and intact. Drain is serosanguineous. Minimally tender around the incision sites.. EXTREMITIES: Extremities have no deformities. No edema identified. Vital Signs Vital Signs Date Time Temp Pulse Resp B/P (MAP) Pulse Ox O2 Delivery O2 Flow Rate FiO2 01/30/20 08:20 88 154/82 01/30/20 05:35 96.4 20 96 Room Air 01/29/20 02:15 2.0 I&Os I&O- Last 24 Hours up to 6 AM 01/30/20 06:00 Intake Total 3630 ml Output Total 4330 ml Balance -700 ml Laboratory Data Labs 24H Laboratory Tests 2 01/30/20 07:14: Immature Granulocyte % (Auto) 0.6, Neutrophils (%) (Auto) 79.5H, Lymphocytes (%) (Auto) 11.1L, Monocytes (%) (Auto) 7.5H, Eosinophils (%) (Auto) 0.8, Basophils (%) (Auto) 0.5, Neutrophils # (Auto) 5.2, Lymphocytes # (Auto) 0.7L, Monocytes # (Auto) 0.5, Eosinophils # (Auto) 0.1, Basophils # (Auto) 0.0, Nucleated Red Blood Cells % (auto) 0.0, Anion Gap 5L, Glomerular Filtration Rate 53.0, Calcium Level 8.6L CBC/BMP Laboratory Tests 01/30/20 07:14 Impression POD2 Robotic Assisted Laparoscopic Sigomoid Colectomy, drainage of abscess, takedown of colovesical fistula anemia postop - multifactorial from postop bloodloss and hemodilutin from fluids given intraop and periop (>3L). baseline is only 9.8, not symptomaic Continues to do well. ambulate the hallways today come down on IVF soft diet continue with pain regimen, dvt prophylaxis keep smith -periop, bladder involvement in colovesical fistula Plan / VTE VTE Prophylaxis Ordered?: Yes Plan / Urinary Catheter Urinary Catheter: D/C Smith Reason for insertion/continuin: Perioperative AYALA ROSARIO MD Jan 30, 2020 08:32
[2020-01-30 14:00] VITALS: BP 121/71
[2020-01-30 20:34] VITALS: BP 144/81
[2020-01-30] MEDS: ATORVASTATIN 10 MG TAB PO SCH (21:36)
[2020-01-30 22:00] VITALS: O2SAT 95
[2020-01-31] MEDS: KETOROLAC 30 MG/ML 1ML VIAL IV SCH ×2 (00:07→08:19)
[2020-01-31] MEDS: ACETAMINOPHEN TAB 650MG DOSE (2X325MG) PO SCH ×4 (02:03→14:36)
[2020-01-31 06:42] VITALS: BP 139/77
[2020-01-31 08:04] LABS: BASO % 0.5 % (0.0-1.0); EOS # 0.1 10^3/uL (0.0-0.5); EOS % 2.4 % (0.0-3.0); HEMATOCRIT 27.3 % (36.0-47.0); HEMOGLOBIN 8.9 g/dl (12.0-15.5); LYMPH # 1.3 10^3/uL (1.5-5.0); LYMPH % 21.8 % (24.0-44.0); MEAN CORPUSCULAR HGB CONC 32.6 g/dl (32.0-36.5); MEAN CORPUSCULAR VOLUME 88.9 fl (80.0-96.0); MONO # 0.5 10^3/uL (0.0-0.8); MONO % 9.1 % (0.0-5.0); NEUTROPHILS # 3.8 10^3/uL (1.5-8.5); NEUTROPHILS % 65.7 % (36.0-66.0); PLATELET COUNT, AUTOMATED 143 10^3/uL (150-450); RED BLOOD COUNT 3.07 10^6/uL (4.00-5.40); WHITE BLOOD COUNT 5.7 10^3/uL (4.0-10.0)
[2020-01-31 08:15] LABS: BLOOD UREA NITROGEN 13 MG/DL (7-18); CALCIUM LEVEL 8.4 MG/DL (8.8-10.2); CARBON DIOXIDE LEVEL 27 MEQ/L (21-32); CHLORIDE LEVEL 109 MEQ/L (98-107); CREATININE FOR GFR 0.91 MG/DL (0.55-1.30); GLOMERULAR FILTRATION RATE > 60.0 (>45); GLUCOSE, FASTING 74 MG/DL (70-100); POTASSIUM SERUM 3.8 MEQ/L (3.5-5.1); SODIUM LEVEL 144 MEQ/L (136-145)
[2020-01-31 08:20] VITALS: BP 139/77
[2020-01-31] MEDS: LOSARTAN 50MG TABLET PO SCH (08:20)
[2020-01-31] MEDS: OMEPRAZOLE 20 MG CAP PO SCH (08:20)
[2020-01-31] MEDS: oxyBUTYnin 5 MG TAB PO SCH (08:20)
[2020-01-31] MEDS: METOPROLOL SUCC *XL* 25MG TAB (TopROL *XL*) PO SCH (08:20)
[2020-01-31] MEDS: ENOXAPARIN 40MG/0.4ML SYRINGE (J1650 PER 10MG) SC SCH (08:21)
[2020-01-31 10:00] VITALS: BP 137/75
--- NOTE | 2020-01-31 13:10 | IPNPDOC ---
Text Note Date of Service The patient was seen on 01/31/20. NOTE She continues to do well. Tolerating diet. Rosenberg catheter was removed yesterday. She has passed urine and denies fecaluria nor passage of flatus urination. She is having soft stools. On examination she looks very comfortable Abdominal exam shows a benign abdomen, nondistended. Incisions are clean dry and intact. Drain is mostly serous now and minimal in amount. Nontender on palpation She is postop day 3 following sigmoid colon resection for colovesical fistula Ok to d/c home today VS,Fishbone, I+O VS, Fishbone, I+O Laboratory Tests 01/31/20 06:58 Vital Signs Date Time Temp Pulse Resp B/P (MAP) Pulse Ox O2 Delivery O2 Flow Rate FiO2 01/31/20 10:00 99.9 77 20 137/75 (95) 97 Room Air 01/29/20 02:15 2.0 I&O- Last 24 Hours up to 6 AM 01/31/20 06:00 Intake Total 2820 ml Output Total 455 ml Balance 2365 ml AYALA ROSARIO MD Jan 31, 2020 13:10
[2020-01-31] MEDS ORDERED: OXYC1TAB23 PO (13:12)
[2020-01-31 14:00] VITALS: BP 137/73
--- NOTE | 2020-02-17 05:02 | DS.PDOC ---
Discharge Summary General Date of Admission Jan 28, 2020 at 06:08 Date of Discharge 01/31/2020 Attending Physician: AYALA ROSARIO MD Discharge Summary PROCEDURES PERFORMED DURING STAY: Robotic Assisted Laparoscopic Sigmoid Colectomy, evacuation of abscess (pericolic), takedown of colovesical fistula ADMITTING DIAGNOSES: 1. colovesical Fistula 2. diverticulitis with perforation and abscess. DISCHARGE DIAGNOSES: 1. colovesical fistula 2. diverticulitis with perforation and abscess. COMPLICATIONS/CHIEF COMPLAINT: Diverticulitis/Colovesical Fistula. HISTORY OF PRESENT ILLNESS: Patient is brought in after nonoperative management of optimizing her and treating her diverticulitis with a pericolic fistula as well as colovesical fistula. She is brought in today for sigmoidectomy for definitive treatment of her diverticulitis and colovesical fistula.. HOSPITAL COURSE: Patient underwent robotic-assisted laparoscopic sigmoid colectomy. She was admitted to the medical surgical floor and started on clear liquids. Pain cont rol was with intermittent doses of Toradol, morphine and Percocets which was adequate. We kept her Rosenberg catheter for 3 days given manipulation of the bladder and ureter as well as presence of a colovesical fistula. She did well postoperatively. She tolerated her clear liquids and this was advanced to soft diet the following day at postop day 1. She ambulated always. Her Rosenberg catheter was removed at postop day 2 and she was able to void freely without any fecaluria or sensation of passing gas. She started having bowel movements at postop day 1, initially loose that has been soft, nonbloody. Her postoperative drain gradually came down in amount and remained serosanguineous and later on serous. This was discontinued prior to her discharge. No signs of PE were, ileus, severe abdominal discomfort or leukocytosis noted throughout her postoperative course. She was subsequently discharged on low residue diet. DISCHARGE MEDICATIONS: Please see below. ALLERGIES: Please see below. PHYSICAL EXAMINATION ON DISCHARGE: VITAL SIGNS: Please see below. GENERAL: Comfortable HEENT: Mild pale palpebral conjunctiva NECK: Supple, no jugular venous distention CARDIOVASCULAR EXAMINATION: Regular heart rate and rhythm without murmurs RESPIRATORY EXAMINATION: Clear breath sounds auscultation bilaterally without wheezing ABDOMINAL EXAMINATION: Obese, soft, nondistended. Port site incisions 4 including an extraction site at the midabdomen covered with Dermabond, clindamycin intact. Nontender on palpation EXTREMITIES: No significant extremity edema SKIN: Warm and moist NEUROLOGICAL EXAMINATION: Awake, alert and oriented, ambulating properly LABORATORY DATA: Please see below. IMAGING: None PROGNOSIS: Good ACTIVITY: Light activity 2 weeks. DIET: Low residue diet until follow-up DISCHARGE PLAN: Patient's discharged home on when necessary Percocet, NSAIDs for pain. DISPOSITION: 01 Home, Self-Care. DISCHARGE INSTRUCTIONS: 1. As above 2. Follow up with me in 2 weeks. ITEMS TO FOLLOWUP ON ON OUTPATIENT: 1. Pathology discussed prior to discharge shows diverticulitis. DISCHARGE CONDITION: Stable. TIME SPENT ON DISCHARGE: Greater than 30 minutes. Vital Signs/I&Os Vital Signs Date Time Temp Pulse Resp B/P (MAP) Pulse Ox O2 Delivery O2 Flow Rate FiO2 01/31/20 14:00 98.2 80 18 137/73 (94) 95 Room Air 01/29/20 02:15 2.0 I&O- Last 24 Hours up to 6 AM 02/01/20 06:00 Intake Total 260 ml Output Total 30 ml Balance 230 ml Discharge Medications Scheduled Atorvastatin Calcium (Atorvastatin Calcium) 10 Mg Tablet, 10 MG PO DAILY, (Reported) Cholecalciferol (Vitamin D3) (Vitamin D3) 125 Mcg Tablet, 125 MCG PO BID, (Reported) Lactobacillus Acidophilus (Acidophilus) 1 Each Tablet, 1 TAB PO DAILY, (Reported) Losartan Potassium (Losartan Potassium) 100 Mg Tablet, 100 MG PO DAILY, (Reported) Metoprolol Succinate (Metoprolol Succinate) 25 Mg Tab.er.24h, 25 MG PO DAILY, (Reported) Omeprazole (Omeprazole) 40 Mg Capsule.dr, 40 MG PO DAILY, (Reported) Oxybutynin Chloride (Oxybutynin Chloride) 5 Mg Tablet, 5 MG PO BID, (Reported) Tizanidine HCl (Tizanidine HCl) 2 Mg Capsule, 2 MG PO PRN, (Reported) Scheduled PRN Ibuprofen (Ibuprofen) 200 Mg Capsule, 200 MG PO PRN PRN for PAIN, (Reported) Oxycodone HCl/Acetaminophen (Oxycodone-Acetaminophen 5-325) 1 Each Tablet, 1-2 TAB PO QIDP PRN for pain Miscellaneous Medications Acetaminophen (8 Hour) 650 Mg Tablet.er, 650 MG PO, (Reported) Allergies Coded Allergies: TAPE (Verified Allergy, Intermediate, "SKIN COMES OFF", 01/18/20) AYALA ROSARIO MD Feb 01, 2020 10:56
== END 2020-01-31 15:10 | disposition home or self-care (01) | DRG 330 ==
LOC: M OR 06:08 → M MS5PR 15:30
PROVIDERS: ADMIT Surgery; ATTEND Surgery
PROC: 0DBN4ZZ Excision of Sigmoid Colon, Percutaneous Endoscopic Approach (ICD-10-PCS; principal; 2020-01-28 07:30)
PROC: 8E0W4CZ Robotic Assisted Procedure of Trunk Region, Percutaneous Endoscopic Approach (ICD-10-PCS; 2020-01-28 07:30)
DX: K57.32 Diverticulitis of large intestine without perforation or abscess without bleeding (principal); N32.1 Vesicointestinal fistula; D62 Acute posthemorrhagic anemia; I10 Essential (primary) hypertension; Z87.891 Personal history of nicotine dependence; Z79.899 Other long term (current) drug therapy

== ENCOUNTER → 2021-08-18 | Outpatient (CLI) | payer MEDICARE ==
[~2021-08-18] MED LIST changes: +BACTDSTA PO; +GNP650TA8 PO; -LIDOCAINE 1% MDV 20ML VIAL SQ PRN; +METR-265; +NEOM500T; +OMEP40CA4 PO; -OMEP40CA97 PO; +OXYC1TAB23 PO; -SULF1TAB93 PO
== END ==
LOC: M LABSMTC 12:07
PROVIDERS: ATTEND Anesthesiology
DX: Z01.812 Encounter for preprocedural laboratory examination (principal); Z20.822 Contact with and (suspected) exposure to COVID-19

== ENCOUNTER 2021-08-23 08:37 | Day surgery (SDC) | payer MEDICARE ==
[~2021-08-23] VITALS: Ht 162.6 cm; Wt 92.4 kg
[~2021-08-23 08:37] MED LIST changes: +LIDOCAINE 2% 100MG/5ML SDV (FOR ANES.) As Ordered ONE; +NS 1,000 ML IV ONE; +propofoL 200 MG/20 ML VIAL As Ordered ONE
--- OUTSIDE RECORDS SUMMARY | 2021-08-23 08:42 | CCD | Continuity of Care Document ---
Author Author ABRAHAM GONZALES, Maria De Jesus CAI [facility], [place] Unknown Address [address] [place] [address] Phone [phone] Care Team Providers Care Drug Abuse Social Worker Name Role Phone gO Wallace AUTM [phone] Problems Active Problems Provider Date Essential hypertension Balwnider Nolen MD Onset: 020 Social History Type Date Description Comments Sex Unknown ETOH Use Occasionally consumes alcohol Tobacco Use Start: Unknown End: Unknown Patient is a former smoker UP TO 3 PPD, QUIT 1991 Recreational Drug Use Denies Drug Use Allergies and adverse reactions Active Allergies Criticality Reaction | Severity Comments Date NKDA Unable to assess criticality 11/03/2019 Tape Unable to assess criticality 07/07/2020 Medications Active Medications SIG Qnty Indications Ordering Provide r Date Oxybutynin Chloride 5mg Tablets Take One Tablet By Mouth Twice A Day Unknown Omeprazole 40mg Capsules DR Take One Capsule By Mouth Every Day Unknown Atorvastatin Calcium 10mg Tablets once a day Og Wallace IV, F.N.P.-C Tizanidine HCL 4mg Capsules a s Needed Unknown Phentermine HCL 37.5mg Capsules Take One Capsule By Mouth Every Day Maximum Daily Dose 1 Unknown Metoprolol Succinate ER 25mg Tablets ER 24HR Take One Tablet By Mouth Every Day Unknow n Fluticasone Propionate 50mcg/Act Suspension 2 sprays to each nostril daily Unknown Immunizations Description No Information Available Vital Signs Date Vital Result Comment 07/27/2021 9:48am BP Systolic 132 mmHg BP Diastolic 68 mmHg Body Temperature 98.3 F Height 66 inches 5'6" Weight 197.25 lb BMI (Body Mass Index) 31.8 kg/m2 Fred Body Weight 130 lb Weight 89.473 kg BSA (Body Surface Area) 1.99 m2 08/09/2020 3:19pm BP Systolic 154 mmHg BP Diastolic 85 mmHg Height 66 inches 5'6" Weight 218.12 lb BMI (Body Mass Index) 35.2 kg/m2 Fred Body Weight 130 lb Weight 98.942 kg BSA (Body Surface Area) 2.07 m2 Results Description No Information Available Procedures Description No Information Available Medical Devices Description No Information Available Encounters Description No Information Available Assessments Date Code Description Provider 07/27/2021 K43.2 Incisional hernia without obstru ction or gangrene Balwinder Nolen MD 07/27/2021 K57.20 Diverticulitis of la rge intestine with perforation and abscess without bleeding Balwinder Nolen MD Plan of Treatment Future Appointment(s):* 09/27/2021 10:00 am - MARCOS Palacio at [facility] * 09/13/2021 8:30 am - Balwinder Nolen MD at [facility] * 09/05/2021 8:30 am - Balwinder Nolen MD at [facility] * 08/23/2021 1:45 pm - Balwinder Nolen MD at [facility] 07/27/2021 - Balwinder Nolen MD* K43.2 Incisional hernia without obstruction or gangrene * K57.20 Diverticulitis of large intestine with perforation and abscess without bleeding* Comments:* 1. Now asymptomatic. Discussed with her need for high fiber diet to prevent recurrent attacks of diverticulitis. Recommend taking fiber supplements to a goal of 30 g of fibers daily. She may take Metamucil, Citrucel, FiberCon.2. Recommend colonoscopy to rule out other causes of inflammatory reaction in the area especially cancer.Discussed with her details of procedure risks and benefits including risks of bleeding, infection, injury to bowels/perforation. All her questions and concerns addressed at this time and she has agreed to proceed.3. Discussed bowel prep.4.Discussed risks and benefits of colonoscopy including risks of bleeding and perforation. Patient has agreed to proceed. 1. Discussed with her the rationale for colon cancer screening as well as the different options for screening. 2. Discussed bowel prep.3.Discussed risks and benefits of colonoscopy including risks of bleeding and perforation * Follow up:* 3 week. Functional Status Description No Information Available Mental Status Description No Information Available Referrals Description No Information Available
--- OUTSIDE RECORDS SUMMARY | 2021-08-23 08:42 | CCD | Continuity of Care Document ---
Author Author ABRAHAM GONZALES, Maria De Jesus CAI [facility] Unknown Address [address] [place] [address] Phone [phone] Care Team Providers Care [employer] Name Role Phone Og Wallace AUTM [phone] Problems Active Problems Provider Date Essential hypertension Balwinder Nolen MD Onset: 020 Social History Type [...] lb BMI (Body Mass Index) 31.8 kg/m2 Lind Body Weight 130 lb Weight 89.473 kg BSA (Body Surface Area) 1.99 m2 08/09/2020 3:19pm BP Systolic 154 mmHg BP Diastolic 85 mmHg Height 66 inches 5'6" Weight 218.12 lb BMI (Body Mass Index) 35.2 kg/m2 Lind Body Weight 130 lb Weight 98.942 kg BSA (Body Surface Area) 2.07 m2 Results Description No Information Available Procedures Date Code Description Status 07/27/2021 49516 Office/Outpatient Established Mo d MDM 30-39 Min Completed Medical Devices Description No Information Available Encounters Type Date Location Provider Dx Diagnosis Office Visit 07/27/2021 9:45a [facility] Pop Nolen MD K43.2 Incisional hernia without ob struction or gangrene K57.20 Dvtrcli of lg int w perforat ion and abscess w/o bleeding Assessments Date Code Description Provider 07/27/2021 K43.2 Incisional hernia without obstru ction or gangrene Balwinder Nolen MD 07/27/2021 K57.20 Diverticulitis of la rge intestine with perforation and abscess without bleeding Balwinder Nolen MD Plan of Treatment Future Appointment(s):* 09/27/2021 10:00 am - MARCOS Palacio at [facility] * 09/13/2021 8:30 am - Balwinder Nolen MD at [facility] * 09/05/2021 8:30 am - Balwinder Nolen MD at [facility] * 08/23/2021 1:45 pm - Balwinder Nolen MD at [facility] 07/27/2021 - Balwinder Nolen MD* K43.2 Incisional hernia without obstruction or gangrene* Comments:* She has been successful losing some weight to bring her BMI down to 31.8 from previous of 35.2 last year with portion control as well as use of phentermine. She denies any side effects of the phentermine. Her her neuropathy measures about 6 x 6 cm externally with the weekend diastatic fascia around it. On CT has a transverse opening of 5.4 cm minimal to moderate diastasis looks to be only at the hernia site. She wishes to discuss options for repair. Given the large size and location at the mid abdomen I discussed with her performing a retromuscular repair to address the wide defect as well as associated moderate diastases at the area. I perform this as a robotic assisted laparoscopic [place] repair with eTEP access. She has a good amount of space in between the rectus muscles underneath so I do not believe we will need transversus abdominis release but I did discuss a small possibility of needing this if we ever encounter resistance or tension and closing both posterior sheath or the anterior sheath. Anticipate this will take roughly multiple hours. This will be done under general anesthesia. Without transversus abdominis release or posterior component separation, an ticipate she will require an overnight stay in the hospital. She may go home with a drain for monitoring as well as draining off with anticipated fluid collection or seroma from the amount of space we need to dissect. He would require placement of a fairly large mesh underneath her rectus muscle to prevent recurrence.I discussed with the patient the details of the proposed procedure, the benefits of performing the procedure, the most common risks on doing the procedure. This may include risks of the general anesthesia, risks of injuring the nerves of the abdomen causing denervation and weakness of the abdominal muscles, risks of injuring adhered bowels. On CT she has a loop of transverse colon coming out of her hernia., Likewise risks of seroma or hematoma formation, chronic pain, mesh complications including fistula, infection, acute and/or chronic pain. I have given her a chance to ask questions, voice out concerns. Patient has agreed to proceed * K57.20 Diverticulitis of large intestine with perforation and abscess without bleeding* Comments:* Prior to scheduling her hernia repair we will perform colonoscopy both of the surveillance for her history of prior polyps as well as to evaluate the healing or anticipate problems with the healing of her proctoscopy colic anastomosis. I reviewed with her how to do a split dose bowel prep. I discussed with the patient the details of the proposed procedure, the benefits of performing the procedure, the most common risks on doing the procedure. This may include risks of abdominal pain, nausea vomiting, dehydration with the bowel prep as well as risks of the IV sedation, risks of the procedure itself including bleeding, perforation which may require emergent surgery. I have given her a chance to ask questions, voice out concerns. Patient has agreed to proceed Functional Status Description No Information Available Mental Status Description No Information Available Referrals Description No Information Available
--- OUTSIDE RECORDS SUMMARY | 2021-08-23 08:43 | CCD ---
Author Author [facility] Organization [facility] Address Unknown Phone Unavailable Care Team Providers Care Crab Steamer Name Role Phone Peewee ROSARIO MD Unavailable Unavailable Peewee ROSARIO MD Unavailable Unavailable Peewee ROSARIO MD Unavailable Unavailable Peewee ROSARIO MD Unavailable Unavailable Peewee ROSARIO MD Unavailable Unavailable Peewee ROSARIO MD Unavailable Unavailable Peewee ROSARIO MD Unavailable Unavailable Peewee ROSARIO MD Unavailable Unavailable Peewee ROSARIO MD Unavailable Unavailable Peewee ROSARIO MD Unavailable Unavailable Peewee ROSARIO MD Unavailable Unavailable Peewee ROSARIO MD Unavailable Unavailable Peewee ROSARIO MD Unavailable Unavailable Peewee ROSARIO MD Unavailable Unavailable Peewee ROSARIO MD Unavailable Unavailable Peewee ROSARIO MD Unavailable Unavailable Peewee ROSARIO MD Unavailable Unavailable Peewee ROSARIO MD Unavailable Unavailable Peewee ROSARIO MD Unavailable Unavailable Peewee ROSARIO MD Unavailable Unavailable Peewee ROSARIO MD Unavailable Unavailable Peewee ROSARIO MD Unavailable Unavailable Peewee ROSARIO MD Unavailable Unavailable Peewee ROSARIO MD Unavailable Unavailable Peewee ROSARIO MD Unavailable Unavailable Peewee ROSARIO MD Unavailable Unavailable BARJNUGAPeewee MD Unavailable Unavailable BARAYUGAPeewee MD Unavailable Unavailable BARAYUGAPeewee MD Unavailable Unavailable BARAYUGAPeewee MD Unavailable Unavailable BARAYUGAPeewee MD Unavailable Unavailable BARAYUGAPeewee MD Unavailable Unavailable BARAYUGAPeewee MD Unavailable Unavailable BARJNUGAPeewee MD Unavailable Unavailable BARJNUGAPeewee MD Unavailable Unavailable BARAYUGAPeewee MD Unavailable Unavailable BARAYUGAPeewee MD Unavailable Unavailable BARAYUGAPeewee MD Unavailable Unavailable BARAYUGAPeewee MD Unavailable Unavailable BARAYUGAPeewee MD Unavailable Unavailable BARAYUGAPeewee MD Unavailable Unavailable BARAYUGAPeewee MD Unavailable Unavailable BARAYUGAPeewee MD Unavailable Unavailable BARAYUGAPeewee MD Unavailable Unavailable BARJNUGAPeewee MD Unavailable Unavailable BARAYUGAPeewee MD Unavailable Unavailable BARJNUGAPeewee MD Unavailable Unavailable BARAYUGAPeewee MD Unavailable Unavailable BARJNUGAPeewee MD Unavailable Unavailable BARJNUGAPeewee MD Unavailable Unavailable BARJNUGAPeewee MD Unavailable Unavailable BARJNUGAPeewee MD Unavailable Unavailable BARJNUGAPeewee MD Unavailable Unavailable BARAYUGAPeewee MD Unavailable Unavailable BARJNUGAPeewee MD Unavailable Unavailable KATHIUGAPeewee MD Unavailable Unavailable BARJNUGAPeewee MD Unavailable Unavailable BARJNUGAPeewee MD Unavailable Unavailable BARJNUGAPeewee MD Unavailable Unavailable BARJNUGAPeewee MD Unavailable Unavailable BARJNUGAPeewee MD Unavailable Unavailable KATHIUGAPeewee MD Unavailable Unavailable KATHIUGAPeewee MD Unavailable Unavailable KATHIUGAPeewee MD Unavailable Unavailable BARJNUGAPeewee MD Unavailable Unavailable BARJNUGAPeewee MD Unavailable Unavailable BARJNUGAPeewee MD Unavailable Unavailable BARJNUGAPeewee MD Unavailable Unavailable BARJNUGAPeewee MD Unavailable Unavailable BARJNUGAPeewee MD Unavailable Unavailable Lopez Belle TUBE FILLER TUBE FILLER Unavailable Unavailabl e ZEGIL, D LISA TUBE FILLER Unavailable Unavailable ZEGIL, D LISA TUBE FILLER Unavailable Unavailable ZEGIL, D LISA TUBE FILLER Unavailable Unavailable Noel Morel MD Unavailable Unavailable RADHA, A PRADEEP PA Unavailable Unavailable RADHA, A PRADEEP PA Unavailable Unavailable RADHA, A PRADEEP PA Unavailable Unavailable RADHA, A PRADEEP PA Unavailable Unavailable RADHA, A PRADEEP PA Unavailable Unavailable RADHA, A PRADEEP PA Unavailable Unavailable RADHA, A PRADEEP PA Unavailable Unavailable RADHA, A PRADEEP PA Unavailable Unavailable RADHA, A PRADEEP PA Unavailable Unavailable RADHA, A PRADEEP PA Unavailable Unavailable RADHA, A PRADEEP PA Unavailable Unavailable RADHA, A PRADEEP PA Unavailable Unavailable RADHA, A PRADEEP PA Unavailable Unavailable Noel Morel MD Unavailable Unavailable Noel Morel MD Unavailable Unavailable Noel Morel MD Unavailable Unavailable Noel Morel MD Unavailable Unavailable Noel Morel MD Unavailable Unavailable Veronica Prieto MD Unavailable Unavailable Migel L Madison, IV FLIGHT MECHANIC Unavailable Unavailable MADISON IV, L MIGEL TUBE FILLER Unavailable Unavailable MADISON IV, L MIGEL TUBE FILLER Unavailable Unavailable MADISON IV, L MIGEL TUBE FILLER Unavailable Unavailable MADISON IV, L MIGEL TUBE FILLER Unavailable Unavailable MADISON IV, L MIGEL TUBE FILLER Unavailable Unavailable MADISON IV, L MIGEL TUBE FILLER Unavailable Unavailable MADISON IV, L MIGEL TUBE FILLER Unavailable Unavailable MADISON IV, L MIGEL TUBE FILLER Unavailable Unavailable MADISON IV, L MIGEL TUBE FILLER Unavailable Unavailable MADISON IV, L MIGEL TUBE FILLER Unavailable Unavailable MADISON IV, L IMGEL TUBE FILLER Unavailable Unavailable MADISON IV, L MIGEL TUBE FILLER Unavailable Unavailable MADISON IV, L MIGEL TUBE FILLER Unavailable Unavailable MADISON IV, L MIGEL TUBE FILLER Unavailable Unavailable MADISON IV, L MIGEL TUBE FILLER Unavailable Unavailable MADISON IV, L MIGEL TUBE FILLER Unavailable Unavailable MADISON IV, L MIGEL TUBE FILLER Unavailable Unavailable MADISON IV, L MIGEL TUBE FILLER Unavailable Unavailable MADISON IV, L MIGEL TUBE FILLER Unavailable Unavailable MADISON IV, L MIGEL TUBE FILLER Unavailable Unavailable MADISON IV, L MIGEL TUBE FILLER Unavailable Unavailable MADISON IV, L MIGEL TUBE FILLER Unavailable Unavailable MADISON IV, L MIGEL TUBE FILLER Unavailable Unavailable MADISON IV, L MIGEL TUBE FILLER Unavailable Unavailable MADISON IV, L MIGEL TUBE FILLER Unavailable Unavailable MADISON IV, L MIGEL TUBE FILLER Unavailable Unavailable MADISON IV, L MIGEL TUBE FILLER Unavailable Unavailable MADISON IV, L MIGEL TUBE FILLER Unavailable Unavailable MADISON IV, L MIGEL TUBE FILLER Unavailable Unavailable MADISON IV, L MIGEL TUBE FILLER Unavailable Unavailable MADISON IV, L MIGEL TUBE FILLER Unavailable Unavailable MADISON IV, L MIGEL TUBE FILLER Unavailable Unavailable MADISON IV, L MIGEL TUBE FILLER Unavailable Unavailable MADISON IV, L MIGEL TUBE FILLER Unavailable Unavailable MADISON IV, L MIGEL TUBE FILLER Unavailable Unavailable MADISON IV, L MIGEL TUBE FILLER Unavailable Unavailable MADISON IV, L MIGEL TUBE FILLER Unavailable Unavailable MADISON IV, L MIGEL TUBE FILLER Unavailable Unavailable ANTECOL, Hansa DUTTON MD Unavailable Unavailable ANTECOL, Hansa DUTTON MD Unavailable Unavailable ANTECOL, Hansa DUTTON MD Unavailable Unavailable ANTECOL, Hansa DUTTON MD Unavailable Unavailable ANTECOL, Hansa DUTTON MD Unavailable Unavailable ANTECOL, Hansa DUTTON MD Unavailable Unavailable ANTECOL, Hansa DUTTON MD Unavailable Unavailable ANTECOL, Hansa DUTTON MD Unavailable Unavailable ANTECOL, Hansa DUTTON MD Unavailable Unavailable ANTECOL, Hansa DUTTNO MD Unavailable Unavailable ANTECOL, Hansa DUTTON MD Unavailable Unavailable ANTECOL, Hansa DUTTON MD Unavailable Unavailable ANTECOL, Hansa DUTTON MD Unavailable Unavailable ANTECOL, Hansa DUTTON MD Unavailable Unavailable ANTECOL, Hansa DUTTON MD Unavailable Unavailable ANTECOL, Hansa DUTTON MD Unavailable Unavailable ANTECOL, Hansa DUTTON MD Unavailable Unavailable ANTECOL, Hansa DUTTON MD Unavailable Unavailable ANTECOL, Hansa DUTTON MD Unavailable Unavailable ANTECOL, Hansa DUTTON MD Unavailable Unavailable ANTECOL, Hansa DUTTON MD Unavailable Unavailable ANTECOL, Hansa DUTTON MD Unavailable Unavailable ANTECOL, Hansa DUTTON MD Unavailable Unavailable ANTECOL, Hansa DUTTON MD Unavailable Unavailable ANTECOL, Hansa DUTTON MD Unavailable Unavailable ANTECOL, Hansa DUTTON MD Unavailable Unavailable ANTECOL, Hansa DUTTON MD Unavailable Unavailable ANTECOL, Hansa DUTTON MD Unavailable Unavailable ANTECOL, Hansa DUTTON MD Unavailable Unavailable ANTECOL, Hansa DUTTON MD Unavailable Unavailable ANTECOL, Hansa DUTTON MD Unavailable Unavailable ANTECOL, Hansa DUTTON MD Unavailable Unavailable ANTECOL, Hansa DUTTON MD Unavailable Unavailable ANTECOL, Hansa DUTTON MD Unavailable Unavailable ANTECOL, Hansa DUTTON MD Unavailable Unavailable ANTECOL, Hansa DUTTON MD Unavailable Unavailable ANTECOL, Hansa DUTTON MD Unavailable Unavailable ANTECOL, Hansa DUTTON MD Unavailable Unavailable ANTECOL, Hansa DUTTON MD Unavailable Unavailable ANTECOL, Hansa DUTTON MD Unavailable Unavailable ANTECOL, Hansa DUTTON MD Unavailable Unavailable ANTECOL, Hansa DUTTON MD Unavailable Unavailable ANTECOL, Hansa DUTTON MD Unavailable Unavailable ANTECOL, Hansa DUTTON MD Unavailable Unavailable ANTECOL, Hansa DUTTON MD Unavailable Unavailable ANTECOL, Hansa DUTTON MD Unavailable Unavailable ANTECOL, Hansa DUTTON MD Unavailable Unavailable ANTECOL, Hansa DUTTON MD Unavailable Unavailable ANTECOL, Hansa DUTTON MD Unavailable Unavailable ANTECOLHansa MD Unavailable Unavailable ANTECOLHansa MD Unavailable Unavailable ANTECOLHansa MD Unavailable Unavailable ANTECOLHansa MD Unavailable Unavailable ANTECOLHnasa MD Unavailable Unavailable ConnerVeronica MD Unavailable Unavailable Re-disclosure Warning The records that you are about to access may contain information from federally-assisted alcohol or drug abuse programs. If such information is present, then the following federally mandated warning applies: This information has been disclosed to you from records protected by federal confidentiality rules (42 CFR part 2). The federal rules prohibit you from making any further disclosure of this information unless further disclosure is expressly permitted by the written consent of the person to whom it pertains or as otherwise permitted by 42 CFR part 2. A general authorization for the release of medical or other information is NOT sufficient for this purpose. The Federal rules restrict any use of the information to criminally investigate or prosecute any alcohol or drug abuse patient.The records that you are about to access may contain highly sensitive health information, the redisclosure of which is protected by Article 27-F of the [facility] Public Health law. If you continue you may have access to information: Regarding HIV / AIDS; Provided by facilities licensed or operated by the [facility] Office of Mental Health; or Provided by the [facility] Office for People With Developmental Disabilities. If such information is present, then the following [facility] mandated warning applies: This information has been disclosed to you from confidential records which are protected by state law. State law prohibits you from making any further disclosure of this information without the specific written consent of the person to whom it pertains, or as otherwise permitted by law. Any unauthorized further disclosure in violation of state law may result in a fine or retirement sentence or both. A general authorization for the release of medical or other information is NOT sufficient authorization for further disc losure. Allergies and Adverse Reactions Type Description Substance Reaction Status Data Source(s ) Drug allergy Drug allergy diclofenac Unknown Reaction [facility] Drug allergy Drug allergy Antihistamines - Alkylamine Unknown Reactio [facility] Encounters Encounter Providers Location Date Indications Data Source(s ) Outpatient Attender: ABRAHAN Wallace RNPAttender: MIGEL FERRARA IV ED-LAB 08/21/2021 01:59:00 PM EST - 08/21/2021 02:00:00 PM EST I10 E78 [id number] [facility] I10 [id number] [id number] Patient discharged. Outpatient Attender: AYALA Dean/Mitesh/Garcia/ Sadaf 07/27/2021 09:45:00 AM EDT [facility] Outpatient Attender: MIGEL WALLACE ED-HCCEDWPC 2020 03:35:00 PM EDT - 07/18/2021 03:36:00 PM EDT [facility] Patient discharged. Emergency Attender: LISA CARRASQUILLO [facility] ED-ED 06/08 10:18:00 AM EDT - 07/04/2021 11:56:00 AM EDT TWISTED KNEE [facility] TWISTED KNEE Patient discharged. Outpatient Attender: MIGEL WALLACE ED-HCCEDWPC 2020 10:52:00 AM EDT - 05/05/2021 10:53:00 AM EDT [facility] Patient discharged. Outpatient [facility]EJN 04/24/2021 08:03:00 PM EDT [facility] Outpatient Attender: ABRAHAN Wallace RNPAttender: MIGEL GOTTI LISANDRAREJI ED-LAB 04/24/2021 03:06:00 PM EDT - 04/24/2021 03:07:00 PM EDT R3915 [facility] R3915 Patient discharged. Outpatient Attender: ABRAHAN Wallace RNPAttender: MIGEL GOTTI LISANDRAREJI ED-LAB 04/06/2021 04:30:00 PM EDT - 04/06/2021 04:31:00 PM EDT I10,N30.01 [facility] I10,N30.01 Patient discharged. Outpatient Attender: MIGEL MADISON IV ED-HCCEDWPC 2020 02:55:00 PM EDT - 04/06/2021 02:56:00 PM EDT [facility] Patient discharged. Inpatient Attender: Claudia Morel MDAttender: Claudia Morel MDAdmitter: Claudia Morel MDConsultant: Padmini Conner MDConsultant: Padmini Conner MDConsultant: FELIPE Bertha Harding TUBE FILLER CPSCAORT-MSU2 021 05:56:00 PM EDT - 04/04/2021 02:45:00 PM EDT [facility] U[facility] Patient discharged. Outpatient [facility] 04/01/2021 02:48:00 PM EDT [facility] Emergency Attender: PRADEEP RODRÍGUEZ ED-ED 04/01 11:29:00 AM EDT - 04/01/2021 04:50:00 PM EDT HAVING SUGAR PROBLEMS [facility] HAVING SUGAR PROBLEMS Patient discharged. Outpatient Attender: MIGEL WALLACE IV ED-HCCEDWPC 2020 04:10:00 PM EDT - 03/30/2021 04:11:00 PM EDT [facility] Patient discharged. Outpatient Attender: MIGEL WALLACE IV ED-HCCEDWPC 2020 09:03:00 AM EDT - 03/02/2021 09:04:00 AM EDT [facility]/24[facility]2021 02:48:00 PM EDT [facility] Outpatient Attender: MIGEL WALLACE IVAttender: ABRAHAN SEGURA ED-HCCEDWPC 01/24/2021 08:26:00 AM EDT - 01/24/2021 08:27:00 AM EDT [facility] Patient discharged. Outpatient Attender: MIGEL WALLACE IV ED-HCCEDWPC 2020 07:51:00 AM [facility] - 10/25/2020 07:52:00 AM [facility] Patient discharged. Outpatient Attender: MIGEL WALLACE IV ED-HCCEDWPC 2019 10:10:00 AM [facility] - 09/22/2020 10:11:00 AM [facility] Patient discharged. Outpatient [facility] 07:47:00 AM EST - 08/30/2020 07:48:00 AM [facility] Patient discharged. Outpatient Attender: MIGEL WALLACE IV -HCCEDWPCP 2019 03:39:00 PM EST - 08/12/2020 03:40:00 PM [facility] Patient discharged. Outpatient Attender: MIGEL WALLACE IV CPSCAORT-LABEJN 08/12/2020 0 3:26:00 PM [facility] Outpatient Attender: MIGEL WALLACE IVAttender: ABRAHAN Migel jefferson [facility] 08/12/2020 10:34:00 AM EST - 08/12/2020 10:35:00 AM [facility] R30.0 [facility] R30.0 Patient discharged. Outpatient Att[facility] 03:03:00 PM EST - 08/11/2020 03:04:00 PM [facility] Patient discharged. Outpatient Attender: NATO GUADARRAMA MD [facility] 07/27 11:46:00 AM EDT - 07/27/2020 11:47:00 AM EDT I491 I10 [facility] I491 I10 Patient discharged. Outpatient Attender: AYALA ROSARIO MD [facility] 08:53:00 AM EDT - 07/18/2020 08:54:00 AM EDT K43.2 [facility] K43.2 Patient discharged. Outpatient Attender: AYALA ROSARIO MD [facility] 10:33:00 AM EDT - 07/15/2020 10:34:00 AM EDT K432 [facility] K432 Patient discharged. Medications Medication Brand Name Start Date Product Form Dose Route Admi nistrative Instructions Pharmacy Instructions Status Indications Reaction Description Data Source(s) 25 mg 07/27/2021 12:00:00 AM EDT tablet 30 TAKE ONE TABLET BY MOUTH EVERY DAY TAKE ONE TABLET BY MOUTH EVERY DAY SOLD: 07/27/2021 [facility] 37.5 mg 07/26/2021 12:00:00 AM EDT capsule 30 TAKE ONE CAPSULE BY MOUTH EVERY DAY MAXIMUM DAILY DOSE = 1 TAKE ONE CAPSULE BY MOUTH EVERY DAY MAXI MUM DAILY DOSE = 1 SOLD: 07/27/2021 [facility] 500 mg 07/18/2021 12:00:00 AM EDT tablet 20 TAKE ONE TABLET BY MOUTH TWICE A DAY FOR 10 DAYS TAKE ONE TABLET BY MOUTH TWICE A DAY FOR 10 DAYS SOLD: 07/19/2021 [facility] 150 mg 07/18/2021 12:00:00 AM EDT tablet 10 TAKE ONE TABLET BY MOUTH EVERY DAY FOR 10 DAYS TAKE ONE TABLET BY MOUTH EVERY DAY FOR 10 DAYS SOLD: [facility] 800-160 mg 07/18/2021 12:00:00 AM EDT tablet 20 TAKE ONE TABLET BY MOUTH TWICE A DAY FOR 10 DAYS TAKE ONE TABLET BY MOUTH TWICE A DAY FOR 10 DAYS SOLD: 07/19/2021 [facility] 150 mg 07/06/2021 12:00:00 AM EDT tablet 10 TAKE ONE TABLET BY MOUTH EVERY DAY FOR 10 DAYS TAKE ONE TABLET BY MOUTH EVERY DAY FOR 10 DAYS SOLD: [facility] atorvastatin 10 MG Oral Tablet ATORVASTATIN CALCIUM 06/17/2021 1 2:00:00 AM EDT tablet 30 TAKE ONE TABLET BY MOUTH EVERY D AY TAKE ONE TABLET BY MOUTH EVERY DAY SOLD: 06/18/2021 [facility] 40 mg 06/17/2021 12:00:00 AM EDT capsule,delayed release (DR/EC) 30 TAKE ONE CAPSULE BY MOUTH EVERY MORNING 30 MINTUES BEFORE A MEAL TAKE ONE CAPSULE BY MOUTH EVERY MORNING 30 MINTUES BEFORE A MEAL SOLD: 07/27/2021 [facility] 25 mg 06/17/2021 12:00:00 AM EDT tablet extended release 24 hr 30 TAKE ONE TABLET BY MOUTH EVERY DAY TAKE ONE TABLET BY MOUTH EVERY DAY SOLD: 06/17/2021 [facility] atorvastatin 10 MG Oral Tablet ATORVASTATIN CALCIUM 06/17/2021 1 2:00:00 AM EDT tablet 30 TAKE ONE TABLET BY MOUTH EVERY D AY TAKE ONE TABLET BY MOUTH EVERY DAY SOLD: 07/27/2021 [facility] 40 mg 06/17/2021 12:00:00 AM EDT capsule,delayed release (DR/EC) 30 TAKE ONE CAPSULE BY MOUTH EVERY MORNING 30 MINTUES BEFORE A MEAL TAKE ONE CAPSULE BY MOUTH EVERY MORNING 30 MINTUES BEFORE A MEAL SOLD: 06/17/2021 [facility] Phentermine Hydrochloride 37.5 MG Oral Capsule PHENTERMINE H CL 06/17/2021 12:00:00 AM EDT capsule 30 TAKE ONE CAPSULE BY MOUTH EVERY DAY MAXIMUM DAILY DOSE = 1 TAKE ONE CAPSULE BY MOUTH EVERY DAY MAXIMUM DAILY DOSE = 1 SOLD: 06/18/2021 [facility] 25 mg 06/17/2021 12:00:00 AM EDT tablet extended release 24 hr 30 TAKE ONE TABLET BY MOUTH EVERY DAY TAKE ONE TABLET BY MOUTH EVERY DAY SOLD: 07/27/2021 [facility] 800-160 mg 04/25/2021 12:00:00 AM EDT tablet 20 TAKE ONE TABLET BY MOUTH TWICE A DAY FOR 10 DAYS TAKE ONE TABLET BY MOUTH TWICE A DAY FOR 10 DAYS SOLD: 04/25/2021 [facility] 37.5 mg 04/06/2021 12:00:00 AM EDT tablet 30 TAKE ONE TABLET BY MOUTH ONE HOUR BEFORE BREAKFAST MAXIMUM DAILY DOSE = 1 TAKE ONE TABLET BY MOUTH ONE HOUR BEFORE BREAKFAST MAXIMUM DAILY DOSE = 1 SOLD: 04/25/2021 [facility] 750 mg 04/04/2021 12:00:00 AM EDT tablet 5 TAKE ONE TABLET BY MOUTH EVERY 48 HOURS TAKE ONE TABLET BY MOUTH EVERY 48 HOURS SOLD: 04/05/2021 [facility] 25 mg 03/31/2021 12:00:00 AM EDT tablet 30 TAKE ONE TABLET BY MOUTH ONCE A DAY TAKE ONE TABLET BY MOUTH ONCE A DAY SOLD: 04/05/2021 [facility] 5 mg 03/27/2021 12:00:00 AM EDT tablet 180 TAKE ONE TABLET BY MOUTH TWICE A DAY TAKE ONE TABLET BY MOUTH TWICE A DAY SOLD: 03/29/2021 [facility] atorvastatin 10 MG Oral Tablet ATORVASTATIN CALCIUM 03/27/2021 1 2:00:00 AM EDT tablet 90 TAKE ONE TABLET BY MOUTH EVERY D AY TAKE ONE TABLET BY MOUTH EVERY DAY SOLD: 03/29/2021 [facility] 5 mg 03/27/2021 12:00:00 AM EDT tablet 180 TAKE ONE TABLET BY MOUTH TWICE A DAY TAKE ONE TABLET BY MOUTH TWICE A DAY SOLD: 06/18/2021 [facility] 25 mg 03/27/2021 12:00:00 AM EDT tablet extended release 24 hr 90 TAKE ONE TABLET BY MOUTH EVERY DAY TAKE ONE TABLET BY MOUTH EVERY DAY SOLD: 03/29/2021 [facility] 40 mg 03/27/2021 12:00:00 AM EDT capsule,delayed release (DR/EC) 90 TAKE ONE CAPSULE BY MOUTH EVERY DAY TAKE ONE CAPSULE BY MOUTH EVERY DAY SOLD: 03/29/2021 [facility] 100 mg 03/27/2021 12:00:00 AM EDT tablet 90 TAKE ONE TABLET BY MOUTH EVERY DAY TAKE ONE TABLET BY MOUTH EVERY DAY SOLD: 06/18/2021 [facility] 100 mg 03/27/2021 12:00:00 AM EDT tablet 90 TAKE ONE TABLET BY MOUTH EVERY DAY TAKE ONE TABLET BY MOUTH EVERY DAY SOLD: 03/29/2021 [facility] 37.5 mg 03/02/2021 12:00:00 AM EDT tablet 30 TAKE 1 TABLET BY MOUTH 1 HOUR PRIOR TO BREAKFAST MAXIMUM DAILY DOSE = 1 TABLET TAKE 1 TABLET BY MOUTH 1 HOUR PRIOR TO BREAKFAST MAXIMUM DAILY DOSE = 1 TABLET SOLD: 03/07/2021 [facility] 25 mg 03/02/2021 12:00:00 AM EDT tablet 30 TAKE ONE TABLET BY MOUTH EVERY DAY TAKE ONE TABLET BY MOUTH EVERY DAY SOLD: 03/07/2021 [facility] 25 mg 01/24/2021 12:00:00 AM EDT tablet 30 TAKE ONE TABLET BY MOUTH EVERY DAY TAKE ONE TABLET BY MOUTH EVERY DAY SOLD: 01/25/2021 [facility] 500 mg 01/24/2021 12:00:00 AM EDT tablet 20 TAKE ONE TABLET BY MOUTH EVERY 12 HOURS FOR 10 DAYS TAKE ONE TABLET BY MOUTH EVERY 12 HOURS FOR 10 DAYS SO LD: 01/25/2021 [facility] 37.5 mg 01/24/2021 12:00:00 AM EDT tablet 30 TAKE ONE TABLET BY MOUTH EVERY DAY 1 HOUR PRIOR TO BREAKFAST MAXIMUM DAILY DOSE = 1 TAKE ONE TABLET BY MOUTH EVERY DAY 1 HOUR PRIOR TO BREAKFAST MAXIMUM DAILY DOSE = 1 SOLD: 01/25/2021 [facility] Naltrexone hydrochloride 50 MG Oral Tablet NALTREXONE HCL 10/25/2020 12:00:00 AM EST tablet 15 TAKE ONE-HALF TABLET BY MOUT H EVERY DAY TAKE ONE-HALF TABLET BY MOUTH EVERY DAY SOLD: 11/25/2020 [facility] 24 HR Bupropion Hydrochloride 150 MG Extended Release Oral T ablet BUPROPION HCL 10/25/2020 12:00:00 AM EST tablet extended release 24 hr 30 TAKE ONE TABLET BY MOUTH EVERY DAY TAKE ONE TABLET BY MOUTH EVERY DAY SOLD: 10/25/2020 [facility] Naltrexone hydrochloride 50 MG Oral Tablet NALTREXONE HCL 10/25/2020 12:00:00 AM EST tablet 15 TAKE ONE-HALF TABLET BY MOUT H EVERY DAY TAKE ONE-HALF TABLET BY MOUTH EVERY DAY SOLD: 12/31/2020 [facility] Naltrexone hydrochloride 50 MG Oral Tablet NALTREXONE HCL 10/25/2020 12:00:00 AM EST tablet 15 TAKE ONE-HALF TABLET BY MOUT H EVERY DAY TAKE ONE-HALF TABLET BY MOUTH EVERY DAY SOLD: 10/25/2020 [facility] 24 HR Bupropion Hydrochloride 150 MG Extended Release Oral T ablet BUPROPION HCL 10/25/2020 12:00:00 AM EST tablet extended release 24 hr 30 TAKE ONE TABLET BY MOUTH EVERY DAY TAKE ONE TABLET BY MOUTH EVERY DAY SOLD: 12/31/2020 [facility] 24 HR Bupropion Hydrochloride 150 MG Extended Release Oral T ablet BUPROPION HCL 10/25/2020 12:00:00 AM EST tablet extended release 24 hr 30 TAKE ONE TABLET BY MOUTH EVERY DAY TAKE ONE TABLET BY MOUTH EVERY DAY SOLD: 11/25/2020 [facility] Naltrexone hydrochloride 50 MG Oral Tablet NALTREXONE HCL 09/22/2020 12:00:00 AM EST tablet 15 TAKE 1/2 TABLET BY MOUTH ONC E DAILY TAKE 1/2 TABLET BY MOUTH ONCE DAILY SOLD: 09/24/2020 [facility] 24 HR Bupropion Hydrochloride 150 MG Extended Release Oral T ablet BUPROPION HCL 09/22/2020 12:00:00 AM EST tablet extended release 24 hr 30 TAKE ONE TABLET BY MOUTH EVERY MORNING TAKE ONE TABLET BY MOUTH EVERY MORNING SOLD: 09/24/2020 [facility] 50 mg 09/09/2020 12:00:00 AM EST tablet 90 TAKE ONE TABLET BY MOUTH EVERY DAY TAKE ONE TABLET BY MOUTH EVERY DAY SOLD: 09/24/2020 [facility] tizanidine 4 MG Oral Tablet TIZANIDINE HCL 08/30/2020 12:00:00 AM EST tablet 90 TAKE ONE TABLET BY MOUTH THREE TIMES A DAY NEEDED T ANJEL ONE TABLET BY MOUTH THREE TIMES A DAY NEEDED SOLD: 09/03/2020 [facility] tizanidine 4 MG Oral Tablet TIZANIDINE HCL 08/30/2020 12:00:00 AM EST tablet 90 TAKE ONE TABLET BY MOUTH THREE TIMES A DAY NEEDED T ANJEL ONE TABLET BY MOUTH THREE TIMES A DAY NEEDED SOLD: 06/18/2021 [facility] Sulfamethoxazole 800 MG / Trimethoprim 160 MG Oral Tab let 800-160 mg SULFAMETHOXAZOLE/TRIMETHOPRIM 08/12/2020 12:00:00 AM EST tablet 20 TAKE ONE TABLET BY MOUTH TWICE A DAY FOR 10 DAYS TAKE ONE TABLET BY MOUTH TWICE A DAY FOR 10 DAYS SOLD: 08/13/2020 [facility] 180 mg 07/19/2020 12:00:00 AM EDT capsule,extended releas e 24 hr 90 TAKE ONE CAPSULE BY MOUTH EVERY DAY TAKE ONE CAPSULE BY MOUTH EVERY DAY SOLD: 10/19/2020 [facility] 180 mg 07/19/2020 12:00:00 AM EDT capsule,extended releas e 24 hr 90 TAKE ONE CAPSULE BY MOUTH EVERY DAY TAKE ONE CAPSULE BY MOUTH EVERY DAY SOLD: 12/31/2020 [facility] 180 mg 07/19/2020 12:00:00 AM EDT capsule,extended releas e 24 hr 90 TAKE ONE CAPSULE BY MOUTH EVERY DAY TAKE ONE CAPSULE BY MOUTH EVERY DAY SOLD: 07/19/2020 [facility] 180 mg 07/19/2020 12:00:00 AM EDT capsule,extended releas e 24 hr 90 TAKE ONE CAPSULE BY MOUTH EVERY DAY TAKE ONE CAPSULE BY MOUTH EVERY DAY SOLD: 03/29/2021 [facility] Oxybutynin chloride 5 MG Oral Tablet OXYBUTYNIN CHLORIDE 12:00:00 AM EDT tablet 180 TAKE ONE TABLET BY MOUTH TWI CE A DAY TAKE ONE TABLET BY MOUTH TWICE A DAY SOLD: 07/11/2020 [facility] 5 mg 03/31/2020 12:00:00 AM EDT tablet 180 TAKE ONE TABLET BY MOUTH TWICE A DAY TAKE ONE TABLET BY MOUTH TWICE A DAY SOLD: 12/31/2020 [facility] 5 mg 03/31/2020 12:00:00 AM EDT tablet 180 TAKE ONE TABLET BY MOUTH TWICE A DAY TAKE ONE TABLET BY MOUTH TWICE A DAY SOLD: 10/06/2020 [facility] 40 mg 03/30/2020 12:00:00 AM EDT capsule,delayed release (DR/EC) 90 TAKE ONE CAPSULE BY MOUTH EVERY DAY TAKE ONE CAPSULE BY MOUTH EVERY DAY SOLD: 07/11/2020 [facility] atorvastatin 10 MG Oral Tablet ATORVASTATIN CALCIUM 03/30/2020 1 2:00:00 AM EDT tablet 90 TAKE ONE TABLET BY MOUTH EVERY D AY TAKE ONE TABLET BY MOUTH EVERY DAY SOLD: 10/06/2020 [facility] atorvastatin 10 MG Oral Tablet ATORVASTATIN CALCIUM 03/30/2020 1 2:00:00 AM EDT tablet 90 TAKE ONE TABLET BY MOUTH EVERY D AY TAKE ONE TABLET BY MOUTH EVERY DAY SOLD: 07/11/2020 [facility] 25 mg 03/30/2020 12:00:00 AM EDT tablet extended release 24 hr 90 TAKE ONE TABLET BY MOUTH EVERY DAY TAKE ONE TABLET BY MOUTH EVERY DAY SOLD: 10/06/2020 [facility] 25 mg 03/30/2020 12:00:00 AM EDT tablet extended release 24 hr 90 TAKE ONE TABLET BY MOUTH EVERY DAY TAKE ONE TABLET BY MOUTH EVERY DAY SOLD: 07/11/2020 [facility] 100 mg 03/30/2020 12:00:00 AM EDT tablet 90 TAKE ONE TABLET BY MOUTH EVERY DAY TAKE ONE TABLET BY MOUTH EVERY DAY SOLD: 10/06/2020 [facility] atorvastatin 10 MG Oral Tablet ATORVASTATIN CALCIUM 03/30/2020 1 2:00:00 AM EDT tablet 90 TAKE ONE TABLET BY MOUTH EVERY D AY TAKE ONE TABLET BY MOUTH EVERY DAY SOLD: 12/31/2020 [facility] 25 mg 03/30/2020 12:00:00 AM EDT tablet extended release 24 hr 90 TAKE ONE TABLET BY MOUTH EVERY DAY TAKE ONE TABLET BY MOUTH EVERY DAY SOLD: 12/31/2020 [facility] 100 mg 03/30/2020 12:00:00 AM EDT tablet 90 TAKE ONE TABLET BY MOUTH EVERY DAY TAKE ONE TABLET BY MOUTH EVERY DAY SOLD: 07/11/2020 [facility] 40 mg 03/30/2020 12:00:00 AM EDT capsule,delayed release (DR/EC) 90 TAKE ONE CAPSULE BY MOUTH EVERY DAY TAKE ONE CAPSULE BY MOUTH EVERY DAY SOLD: 10/06/2020 [facility] 40 mg 03/30/2020 12:00:00 AM EDT capsule,delayed release (DR/EC) 90 TAKE ONE CAPSULE BY MOUTH EVERY DAY TAKE ONE CAPSULE BY MOUTH EVERY DAY SOLD: 12/31/2020 [facility] 100 mg 03/30/2020 12:00:00 AM EDT tablet 90 TAKE ONE TABLET BY MOUTH EVERY DAY TAKE ONE TABLET BY MOUTH EVERY DAY SOLD: 12/31/2020 [facility] Insurance Providers Payer name Policy type / Coverage type Policy ID Covered democrat ID Covered democrat's relationship to chan Policy Chan Plan Information [employer]Y [employer]ARE [id number] S [id number] WELLCARE [id number] S [id number] WELLCARE [id number] S [id number] [employer] [id number] S [id number] [facility] MEDIC[facility] [id number] S [id number] [facility] MEDIC[facility] [id number] S [id number] [facility] [place] [id number] S [id number] [employer] [id number] S [id number] [employer] [id number] SP [id number] MEDICAID [id number] [facility] [id number] 18 [id number] [facility] [id number] 18 [id number] [facility] [id number] 18 [id number] [facility] [id number] 18 [id number] MEDICAID -O/P [id number] WELLCARE [id number] SP [id number] MEDICAID - CLINIC [id number] WELLCARE [id number] Unemployed [id number] [employer] MED[employer] [id number] SP [id number] MEDICARE [id number] SP [id number] WELLCARE [id number] Retired [id number] [employer] [id number] S [id number] Problems, Conditions, and Diagnoses Code Display Name Description Problem Type Effective Dates Data Source(s) E78.00 Pure hypercholesterolemia, unspecified P URE HYPERCHOLESTEROLEMIA, UNSPECIFIED Diagnosis 08/21/2021 01:59:00 PM EST [facility] I10 Essential (primary) hypertension ESSENTIAL (PRIMARY) H YPERTENSION Diagnosis 08/21/2021 01:59:00 PM [facility] Z01.818 Encounter for other preprocedural examin ation ENCOUNTER FOR OTHER PREPROCEDURAL EXAMINATION Diagnosis 08/21/2021 01:59:00 PM [facility] E66.09 Other obesity due to excess calories OTH ER OBESITY DUE TO EXCESS CALORIES Diagnosis 07/18/2021 03:35:00 PM EDT [facility] B00.1 Herpesviral vesicular dermatitis HERPESVIRAL VES ICULAR DERMATITIS Diagnosis 07/18/2021 03:35:[address] [facility] R30.0 Dysuria DYSURIA Diagnosis 07/18/2021 03:35:00 PM [facility] M17.12 Unilateral primary osteoarthritis, left knee UNILATERAL PRIMARY OSTEOARTHRITIS, LEFT KNEE Diagnosis 07/18/2021 03:35:00 PM [facility] Z23 Encounter for immunization ENCOUNTER FOR IMMUNIZATION Diagnosis 07/18/2021 03:35:[address] [facility] Z00.00 Encounter for general adult medical examination without abnormal findings ENCNTR FOR GENERAL ADULT MEDICAL EXAM W/O ABNORMAL FINDINGS Diagnosis 07/18/2021 03:35:[address] [facility] Y92.[address] or not applicable UNSPECIFIED PLACE OR NOT APPLICABLE Diagnosis 07/04/2021 10:18:[address] [facility] X50.1XXA Overexertion from prolonged static or awkward postures, initial encounter OVEREXERTION FROM PROLONGED STATIC OR AWKWARD POSTURES , INIT Diagnosis 07/04/2021 10:18:[address] [facility] Y93.01 Activity, walking, marching and hiking A CTIVITY, WALKING, MARCHING AND HIKING Diagnosis 07/04/2021 10:18:00 AM [facility] antoniotal Z79.899 Other manager intermediate (current) drug therapy O THER MOUNTAIN GUIDE (CURRENT) DRUG THERAPY Diagnosis 07/04/2021 10:18:[facility] S[facility].92[facility] Sprain of unspecified site of left knee, initial encounter SPRAIN OF UNSPECIFIED SITE OF LEFT KNEE, INITIAL ENCOUNTER Diagnosis 07/04 10:18:[address] [facility] E66.9 Obesity, unspecified OBESITY, UNSPECIFIED Diagnosis 05/05/2021 10:52:[address] [facility] N30.01 Acute cystitis with hematuria ACUTE CYSTITIS WITH KENDRA TURIA Diagnosis 04/06/2021 02:55:[address] [facility] T43.205A Adverse effect of unspecified antidepres sants, initial encounter ADVERSE EFFECT OF UNSPECIFIED ANTIDEPRESSANTS, INIT ENCNTR Diagnosis 04/06/2021 02:55:[address] [facility] A41.9 Sepsis, unspecified organism SEPSIS, UNSPECIFIED ORGAN ISM Diagnosis 04/06/2021 02:55:[address] [facility] R65.20 Severe sepsis without septic shock SEVERE SEPSIS WITHOUT SEPTIC SHOCK Diagnosis 04/01/2021 05:56:00 PM [facility] I10 Essential (primary) hypertension ESSENTIAL (PRIMARY) H YPERTENSION Diagnosis 04/01/2021 05:56:00 PM [facility] E86.0 Dehydration DEHYDRATION Diagnosis 04/01/2021 05:56:00 PM [facility] D69.6 Thrombocytopenia, unspecified THROMBOCYTOPENIA, UNSPEC IFIED Diagnosis 04/01/2021 05:56:00 PM [facility] Z68.34 Body mass index (BMI) 34.0-34.9, adult B LEONIDAS MASS INDEX [BMI] 34.0-34.9, ADULT Diagnosis 04/01/2021 05:56:[address] [facility] E66.9 Obesity, unspecified OBESITY, UNSPECIFIED Diagnosis 04/01/2021 05:56:00 PM [facility] M17.0 Bilateral primary osteoarthritis of knee BILATERAL PRIMARY OSTEOARTHRITIS OF KNEE Diagnosis 04/01/2021 05:56:[address] [facility] E78.5 Hyperlipidemia, unspecified HYPERLIPIDEMIA, UNSPECIFIE D Diagnosis 04/01/2021 05:56:00 PM [facility] N17.9 Acute kidney failure, unspecified ACUTE KIDNEY F AILURE, UNSPECIFIED Diagnosis 04/01/2021 05:56:00 PM [facility] N39.0 Urinary tract infection, site not specif ied URINARY TRACT INFECTION, SITE NOT SPECIFIED Diagnosis 04/01/2021 05:56:[address] [facility] A41.9 Sepsis, unspecified organism SEPSIS, UNSPECIFIED ORGAN ISM Diagnosis 04/01/2021 05:56:00 PM [facility] Z68.34 Body mass index (BMI) 34.0-34.9, adult B LEONIDAS MASS INDEX [BMI] 34.0-34.9, ADULT Diagnosis 01/24/2021 08:26:00 AM [facility] lucien M62.838 Other muscle spasm OTHER MUSCLE SPASM Diagnosis 07:47:00 AM [facility] K21.9 Gastro-esophageal reflux disease without esophagitis GASTRO-ESOPHAGEAL REFLUX DISEASE WITHOUT ESOPHAGITIS Diagnosis 08/30/2020 07:47:00 AM [facility] E55.9 Vitamin D deficiency, unspecified VITAMIN D DEFI CIENCY, UNSPECIFIED Diagnosis 08/30/2020 07:47:00 AM [facility] E78.1 Pure hyperglyceridemia PURE HYPERGLYCERIDEMIA Diagnosi s 08/30/2020 07:47:00 AM [facility] K43.2 Incisional hernia without obstruction or gangrene INCISIONAL HERNIA WITHOUT OBSTRUCTION OR GANGRENE Diagnosis 07/18/2020 08:53:00 AM [facility] Z01.812 Encounter for preprocedural laboratory e xamination ENCOUNTER FOR PREPROCEDURAL LABORATORY EXAMINATION Diagnosis 07/15/2020 10:33:[address] [facility] Surgeries/Procedures Procedure Description Date Indications Data Source(s) [id number] X-RAY EXAM CHEST 2 VIEWS 08/21/2021 12:00:00 AM [facility] URNLS DIP STICK/TABLET REAGENT AUTO MICROSCOPY URINALYSIS AU TO W/SCOPE 08/21/2021 12:00:00 AM [facility] COLLECTION VENOUS BLOOD VENIPUNCTURE ROUTINE VENIPUNCTURE 12:00:00 AM [facility] BLOOD COUNT COMPLETE AUTO&AUTO DIFRNTL WBC COUNT COMPLETE CB C W/AUTO DIFF WBC 08/21/2021 12:00:00 AM [facility] LIPID PANEL LIPID PANEL 08/21/2021 12:00:00 AM [facility] COMPREHENSIVE METABOLIC PANEL COMPREHEN METABOLIC PANEL 08/07 12:00:00 AM [facility] OFFICE OUTPATIENT VISIT 25 MINUTES 07/27/2021 12:00:00 AM [facility], ) [facility] outpatient clinic visit for assessment and ma nagement of a patient Hospital Outpatient Clinic Visit 07/18/2021 12:00:[address] [facility] Administration of influenza virus vaccine 07/18/2021 1 2:00:[address] [facility] [address]3909 IIV4 VACC NO PRSV 0.5 ML IM 07/18/2021 12:00:[address] [facility] RADIOLOGIC EXAMINATION KNEE 3 VIEWS X-RAY EXAM OF KNEE 3 12:00:[address] [facility] EMERGENCY DEPARTMENT VISIT MODERATE SEVERITY EMERGENCY DEPT VISIT 07/04/2021 12:00:[address] [facility] BLOOD COUNT COMPLETE AUTOMATED COMPLETE CBC AUTOMATED 2020 12:00:[address] [facility] Infusion, normal saline solution , 1000 cc 04/03/2021 12:00:[address] [facility] HEMOGLOBIN GLYCOSYLATED A1C GLYCOSYLATED HEMOGLOBIN TEST 12:00:[address] [facility] LACTATE 04/01/2021 12:00:00 AM [facility] TROPONIN QUANTITATIVE 04/01/2021 12:00:[address] [facility] Injection, piperacillin sodium/tazobacta m sodium, 1 gram/0.125 grams (1.125 grams) 04/01/2021 12:00:00 AM [facility] Injection, ciprofloxacin for intravenous infusion, 200 mg 04/01/2021 12:00:[address] [facility] THERAPEUTIC INJECTION IV PUSH EACH NEW DRUG 04/01/2021 12:00:[address] [facility] IV INFUSION THERAPY/PROPHYLAXIS /DX 1ST TO 1 HR 2020 12:00:[address] [facility] EMERGENCY DEPT VISIT HIGH SEVERITY&THREAT FUNCJ 2020 12:00:[address] [facility] CT ABDOMEN & PELVIS W/O CONTRAST MATERIAL 04/01/2021 1 2:00:[address] [facility] [address] THORAX W/O CONTRAST MATERIAL 04/01/2021 12:00:[address] [facility] [address] 04/01/2021 12:00:00 AM [facility] ECG ROUTINE ECG W/LEAST 12 LDS TRCG ONLY W/O I&R 04/01 12:00:[address] [facility] [address] 04/01/2021 12:00:00 AM [facility] CULTURE BACTERIAL QUANTTATIVE COLONY COUNT URINE URINE CULTU RE/COLONY COUNT 04/01/2021 12:00:[address] [facility] CULTURE BACTERIAL BLOOD AEROBIC W/ID ISOLATES 04/01/20 21 12:00:[address] [facility] ACETONE/OTHER KETONE BODIES SERUM QUANTITATIVE 021 12:00:[address] [facility] CUL BACT AEROBIC ADDL METHS DEFINITIVE EA ISOL CULTURE AEROB IC IDENTIFY 01/24/2021 12:00:[address] [facility] SUSCEPTIBLTY STDY ANTIMICRBIAL MICRO/AGAR DILUTJ MICROBE GEOVANNY CEPTIBLE FAVIAN 01/24/2021 12:00:[address] [facility] CT ABDOEN & PELVIS W/CONTRAST MATERIAL CT ABD & PELV W/CONTR AST 07/18/2020 12:00:[address] [facility] Low osmolar contrast material, 300-399 mg/ml iodine co ncentration, per ml Locm 300-399mg/ml iodine,1ml Long 07/18/2020 12:00:00 AM [facility] UREA NITROGEN QUANTITATIVE ASSAY OF UREA NITROGEN 07/15/2020 12:00: [address] [facility] CREATININE BLOOD ASSAY OF CREATININE 07/15/2020 12:00:[address] [facility] XTRNL ECG < 48 HR RECORDING 07/07/2020 12:00:00 AM EDT [facility] XTRNL ECG CONTINUOUS RHYTHM PHYS REVIEW&INTERPJ 2019 12:00:00 AM EDT [facility] ([facility]) Results ID Date Data Source [id number] 08/22/2021 09:23:00 AM [facility] Imaging Services Department Imaging Report [address] [place] [address] %(RAD)RES..mtdd.print.filter("line") Name: TRAVIS GAVIRIA : 1950 Age/Sex: 70F Ordering Provider: Migel Wallace IV, RNP Med Rec #: [id number] Reg Status: DEP REF Room #: Date of Service: 08/21/21 Report Number: [id number] cc:Migel Wallace IV, RNP Send Report To: [id number] XRP/XR Chest 2 View [Pa & Lat] Reason for exam: PRE OP Comparison is made to prior study from 10/08/2019. FINDINGS: Lung grant are clear. There is no focal infiltrate or consolidation identified. Cardiac silhouette appears u nremarkable. Osseous structures show arthritic changes. IMPRESSION: NO ACUTE PULMONARY FINDINGS. REPORT DICTATED BY PRADEEP GARCIA, REVIEWED AND SIGNED BY DR. DE LEON Time portable performed: Fluoroscopy time in seconds: Number of Exposures: Contrast Agent in ml: Method of Administration: REPORT SIGNATURE ON FILE Reported By: Erick De Leon MD <Electronically signed by Erick De Leon MD> 08/22/21 1122 Dictation Date/Time: 08/21/21 0421 Transcribed Date/Time: 08/22/21 0923 Launch Check Out: TODD Name Value Range Interpretation Code Description Data Tequila rce(s) Supporting Document(s) ID Date Data Source [id number] 08/21/2021 04:29:00 PM EST [facility] Name Value Range Interpretation Code Description Data Tequila rce(s) Supporting Document(s) Sodium 147 mmol/L 136-145 Above high normal [facility] Potassium 3.5-5.1 Normal (applies to non-numeric resul ts) [facility] Chloride 109 mmol/L 98-107 Above high normal [facility] Carbon Dioxide CO2 21-32 Normal (applies to non-numer ic results) [facility] Anion Gap 5.0-16.0 Normal (applies to non-numeric resul ts) [facility] BUN 22 mg/dL 7-18 Above high normal [facility] Creatinine,Serum 0.7-1.2 Normal (applies to non-numeric results) [facility] GFR >60 Normal (applies to non-numeric results) [facility] Glucose Level 78 mg/dL 60-99 Normal (applies to non-numeric re sults) [facility] Reference range is only applicable when patient is fasting Note the following drug interference: Sulfasalazine Sulfapyridine Can see falsely depressed Can see falsely elevated result with up to 17% results with up to 11% decrease in measurement increase in measurement Recommend patients be collected for this test prior to administration of either drug. Calcium 8.5-10.1 Normal (applies to non-numeric resul ts) [facility] Bilirubin,Total 0.1-1.9 Normal (applies to non-numeric results) [facility] SGOT(AST) 19 U/L 15-37 Normal (applies to non-numeric resul ts) [facility] Note the following drug interference: Sulfasalazine Sulfapyridine Can see falsely depressed Can see falsely elevated result with up to 10% results with up to 10% decrease in measurement increase in measurement Recommend patients be collected for this test prior to administration of either drug. SGPT(ALT) 21 U/L 12-78 Normal (applies to non-numeric resul ts) [facility] Note the following drug interference: Sulfasalazine Sulfapyridine Can see falsely depressed Can see falsely elevated result with up to 29% results with up to 10% decrease in measurement increase in measurement Recommend patients be collected for this test prior to administration of either drug. Alkaline Phosphatase 87 U/L 38-126 Normal (applies to non-num mesfin results) [facility] can increase Alkaline Phosp le vels up to 2 times the normal adult value. Normal values for children and adolescents are 2 to 3 times the normal adult value. Total Protein 6.0-8.2 Normal (applies to non-numeric re sults) [facility] Albumin Level 3.4-5.0 Normal (applies to non-numeric re sults) [facility] ID Date Data Source [id number] 08/21/2021 04:29:00 PM EST [facility] Name Value Range Interpretation Code Description Data [facility] rce(s) Supporting Document(s) Triglycerides 268 mg/dL <150 Above high normal [facility] Cholesterol 171 mg/dL 100-200 Normal (applies to non-numeric resu lts) [facility] LDL Cholesterol Calculated 71 0-130 Normal (applies to n on-numeric results) [facility] HDL Cholesterol 46 mg/dL 40-60 Normal (applies to non-numeric results) [facility] Cholesterol/HDL Ratio 3.6-6.7 Normal (applies to non-nu meric results) [facility] ID Date Data Source [id number] 08/21/2021 03:58:00 PM EST [facility] Name Value Range Interpretation Code Description Data [facility] rce(s) Supporting Document(s) Color,Urine Colorl-Dk Y Normal (applies to non-numeric res ults) [facility] Clarity,Urine Clear Normal (applies to non-numeric re sults) [facility] Specific [place],Urine 1.005-1.030 Normal (applies to non- numeric results) [facility] pH,Urine 5.0-8.0 Normal (applies to non-numeric resul ts) [facility] Protein,Urine Negative Normal (applies to non-numeric re sults) [facility] Glucose,Urine Negative Normal (applies to non-numeric re sults) [facility] Ketones,Urine Negative Normal (applies to non-numeric re sults) [facility] Blood,Urine Negative [facility] Bilirubin,Urine Negative Normal (applies to non-numeric results) [facility] Urobilinogen,Urine 0.2-1.0 Normal (applies to non-numer ic results) [facility] Leukocyte Esterase,Urine Negative [facility] Nitrite,Urine Negative Normal (applies to non-numeric re sults) [facility] RBC,Urine None [facility]en [facility] 5-10 5-10@Manual entry verification WBC,Urine None Seen [facility] Casts,Urine None Seen Normal (applies to non-numeric resu lts) [facility] Squamous Cells,Urine None Seen [facility] Amorphous Sediment,Urine None Seen [facility] Bacteria,Urine None Seen [facility] ital ID Date Data Source -[id number] 08/21/2021 03:54:00 PM EST [facility] Name Value Range Interpretation Code Description Data Tequila rce(s) Supporting Document(s) White Blood Count 3.5-10.5 Normal (applies to non-numeri c results) [facility] Red Blood Count 3.90-5.00 Normal (applies to non-numeric results) [facility] Hemoglobin 12.0-15.5 Below low normal [facility]ital Hematocrit 34.9-44.5 Normal (applies to non-numeric resul ts) [facility] Mean Corpuscular Volume 81.2-95.1 Normal (applies to non- numeric results) [facility] Mean Corpuscular Hgb 25.6-32.2 Normal (applies to non-num mesfin results) [facility] Mean Corpuscular Hgb Conc 32.0-36.0 Normal (applies to no n-numeric results) [facility] Red Cell Distribution Width 11.9-15.5 Normal (appli es to non-numeric results) [facility] Platelet Count 171 x10 3/uL 150-450 Normal (applies to non-numeric results) [facility] Mean Platelet Volume 9.4-12.4 Normal (applies to non-num mesfin results) [facility] Neutrophils% (Auto) 31.0-71.0 Normal (applies to non-nume ivonne results) [facility] Lymphocytes% (Auto) 20.0-55.0 Normal (applies to non-nume ivonne results) [facility] Monocytes% (Auto) 4.0-12.0 Normal (applies to non-numeri c results) [facility] Eosinophils% (Auto) 1.0-8.0 Normal (applies to non-nume ivonne results) [facility] Basophils% (Auto) 0.0-2.0 Normal (applies to non-numeri c results) [facility] Immature Granulocytes% (Auto) 0.0-2.0 Normal (zhanna lies to non-numeric results) [facility] Neutrophils# (Auto) 1.50-6.20 Normal (applies to non-nume ivonne results) [facility] Lymphocytes# (Auto) 1.20-4.00 Normal (applies to non-nume ivonne results) [facility] Monocytes# (Auto) 0.00-0.90 Normal (applies to non-numeri c results) [facility] Eosinophils# (Auto) 0.00-0.50 Normal (applies to non-nume ivonne results) [facility] Basophils# (Auto) 0.00-0.20 Normal (applies to non-numeri c results) [facility] Immature Granulocytes# (Auto) 0.00-7.00 No rmal (applies to non-numeric results) [facility] ID Date Data Source [id number] 07/05/2021 09:09:00 AM EDT [facility] Imaging Services Department Imaging Report [address] [place] [id number] %(RAD)RES..mtdd.print.filter("line") Name: TRAVIS GAVIRIA : 1950 Age/Sex: 70F Ordering Provider: FELIPE Vieira Med Rec #: [id number] Reg Status: [facility] ER Room #: Date of Service: 07/04/21 Report Number: [id number] cc:Migel Wallace, IV, FLIGHT MECHANIC Send Report To: [id number] XRP/XR Knee Lt 3 View Reason for exam: pain FINDINGS: Prominent arthritic changes in the medial and lateral joint space compartments with no intrinsic bony lesions or fractures or any acute abnormalities noted. IMPRESSION: PROMINENT ARTHRITIC CHANGES. Time portable performed: Fluoroscopy time in seconds: Number of Exposures: Contrast Agent in ml: Method of Administration: REPORT SIGNATURE ON FILE Reported By: Pradeep Santiago MD <Electronically signed by Donato Santiago MD> 07/05/21 1144 Dictation Date/Time: 07/04/21 1215 Transcribed Date/Time: 07/05/21 0909 Launch Check Out: KAROLYN Name Value Range Interpretation Code Description Data Tequila rce(s) Supporting Document(s) ID Date Data Source [id number] 04/26/2021 07:41:00 PM EDT [facility] Procedure Performed By: [facility] [address] [place] [address] Director: Reji Pal MD QUANTITY: >100,000/mL {CITROBACTER FREUNDII} [employer] FREUNDIIS[employer] Name Value Range Interpretation Code Description Data Tequila rce(s) Supporting Document(s) ID Date Data Source [id number] 04/26/2021 07:41:00 PM EDT [facility] Procedure Performed By: [facility] [address] [place] [address] Director: Reji Pal MD QUANTITY: >100,000/mL {CITROBACTER FREUNDII} CITROBACTER FREUNDIISCT Name Value Range Interpretation Code Description Data Tequila rce(s) Supporting Document(s) Cefazolin Results entered -- not verified [facility] Cefepime Susceptible. Indicates for microbiol ogy susceptibilities only. [facility] Ceftazadime Susceptible. Indicates for m icrobiology susceptibilities only. [facility] Ceftriaxone Susceptible. Indicates for m icrobiology susceptibilities only. [facility] Ciprofloxacin Susceptible. Ind icates for microbiology susceptibilities only. [facility] Ertapenem Susceptible. Indicates for microbiol ogy susceptibilities only. [facility] Gentamicin Susceptible. Indicates for microbiol ogy susceptibilities only. [facility] Levofloxacin Susceptible. Indicates for m icrobiology susceptibilities only. [facility] Pipercillin/Tazobactam Susceptib le. Indicates for microbiology susceptibilities only. [facility] Trimeth/Sulfamethoxazole Suscept ible. Indicates for microbiology susceptibilities only. [facility] ID Date Data Source [id number] 04/26/2021 10:32:00 AM EDT [facility] Procedure Performed By: [facility] [address] [place] [address] Director: Reji Pal MD Name Value Range Interpretation Code Description Data Tequila rce(s) Supporting Document(s) Urine Culture [facility] ospital ID Date Data Source [id number] 04/26/2021 10:32:00 AM EDT [facility] Procedure Performed By: [facility] [address] [place] [address] Director: Reji Pal MD Name Value Range Interpretation Code Description Data Tequila rce(s) Supporting Document(s) Cefazolin Results entered -- not verified [facility] Cefepime Susceptible. Indicates for microbiol ogy susceptibilities only. [facility] Ceftazadime Susceptible. Indicates for m icrobiology susceptibilities only. [facility] Ceftriaxone Susceptible. Indicates for m icrobiology susceptibilities only. [facility] Ciprofloxacin Susceptible. Ind icates for microbiology susceptibilities only. [facility] Ertapenem Susceptible. Indicates for microbiol ogy susceptibilities only. [facility] Gentamicin Susceptible. Indicates for microbiol ogy susceptibilities only. [facility] Levofloxacin Susceptible. Indicates for m icrobiology susceptibilities only. [facility] Pipercillin/Tazobactam Susceptib le. Indicates for microbiology susceptibilities only. [facility] Trimeth/Sulfamethoxazole Suscept ible. Indicates for microbiology susceptibilities only. [facility] ID Date Data Source [id number] 04/24/2021 04:43:00 PM EDT [facility] CX IF RAFI Name Value Range Interpretation Code Description Data Tequila rce(s) Supporting Document(s) Color,Urine Colorl-Dk Y Normal (applies to non-numeric res ults) [facility] Clarity,Urine Clear Normal (applies to non-numeric re sults) [facility] Specific [place],Urine 1.005-1.030 Normal (applies to non- numeric results) [facility] pH,Urine 5.0-8.0 Normal (applies to non-numeric resul ts) [facility] Protein,Urine Negative Normal (applies to non-numeric re sults) [facility] Glucose,Urine Negative Normal (applies to non-numeric re sults) [facility] Ketones,Urine Negative Normal (applies to non-numeric re sults) [facility] Blood,Urine Negative [facility] l Bilirubin,Urine Negative Normal (applies to non-numeric results) [facility] Urobilinogen,Urine 0.2-1.0 Normal (applies to non-numer ic results) [facility] Leukocyte Esterase,Urine Negative [facility] Nitrite,Urine Negative [facility] [place] ebv RBC,Urine None Seen Normal (applies to non-numeric resul ts) [facility] WBC,Urine None Seen [facility] Casts,Urine None Seen Normal (applies to non-numeric resu lts) [facility] Epithelial Cells,Urine None - Few Normal (applies to non-n umeric results) [facility] Bacteria,Urine None Seen [facility] ital ID Date Data Source [id number] 04/06/2021 06:11:00 PM EDT [facility] Name Value Range Interpretation Code Description Data Tequila rce(s) Supporting Document(s) White Blood Count 3.5-10.5 Normal (applies to non-numeri c results) [facility] Red Blood Count 3.90-5.00 Below low normal [facility] Hemoglobin 12.0-15.5 Below low normal [facility] ospital Hematocrit 34.9-44.5 Below low normal [facility] ospital Mean Corpuscular Volume 81.2-95.1 Normal (applies to non- numeric results) [facility] Mean Corpuscular Hgb 25.6-32.2 Normal (applies to non-num mesfin results) [facility] Mean Corpuscular Hgb Conc 32.0-36.0 Normal (applies to no n-numeric results) [facility] Red Cell Distribution Width 11.9-15.5 Normal (appli es to non-numeric results) [facility] Platelet Count 230 x10 3/uL 150-450 Normal (applies to non-numeric results) [facility] Mean Platelet Volume 9.4-12.4 Normal (applies to non-num mesfin results) [facility] Total Cells Counted (Manual) 100 Normal (applies to non-numeric results) [facility] Neutrophils% (Manual) 55 % 31-71 Normal (applies to non-nu meric results) [facility] Lymphocytes% (Manual) 34 % 20-55 Normal (applies to non-nu meric results) [facility] Monocytes% (Manual) 7 % 4-12 Normal (applies to non-nume ivonne results) [facility] Eosinophils% (Manual) 2 % 1-8 Normal (applies to non-nu meric results) [facility] Band Neutrophils% (Manual) 2 % 0-10 Normal (applies to n on-numeric results) [facility] Platelet Estimate (Manual) Agreement Normal (applie s to non-numeric results) [facility] Slide Reviewed By Normal (applies to non-numeri c results) [facility] Slide has been reviewed and findings con firmed by a technologist/lamination technician. ID Date Data Source [id number] 04/06/2021 05:55:00 PM EDT [facility] Name Value Range Interpretation Code Description Data Tequila rce(s) Supporting Document(s) Sodium 146 mmol/L 136-145 Above high normal [facility] Potassium 3.5-5.1 Normal (applies to non-numeric resul ts) [facility] Chloride 108 mmol/L 98-107 Above high normal [facility] Carbon Dioxide CO2 21-32 Normal (applies to non-numer ic results) [facility] Anion Gap 5.0-16.0 Normal (applies to non-numeric resul ts) [facility] BUN 21 mg/dL 7-18 Above high normal [facility] ospital Creatinine,Serum 0.7-1.2 Normal (applies to non-numeric results) [facility] GFR >60 Normal (applies to non-numeric results) [facility] Glucose Level 80 mg/dL 60-99 Normal (applies to non-numeric re sults) [facility] Reference range is only applicable when patient is fasting Note the following drug interference: Sulfasalazine Sulfapyridine Can see falsely depressed Can see falsely elevated result with up to 17% results with up to 11% decrease in measurement increase in measurement Recommend patients be collected for this test prior to administration of either drug. Calcium 8.5-10.1 Normal (applies to non-numeric resul ts) [facility] Bilirubin,Total 0.1-1.9 Normal (applies to non-numeric results) [facility] SGOT(AST) 32 U/L 15-37 Normal (applies to non-numeric resul ts) [facility] Note the following drug interference: Sulfasalazine Sulfapyridine Can see falsely depressed Can see falsely elevated result with up to 10% results with up to 10% decrease in measurement increase in measurement Recommend patients be collected for this test prior to administration of either drug. SGPT(ALT) 34 U/L 12-78 Normal (applies to non-numeric resul ts) [facility] Note the following drug interference: Sulfasalazine Sulfapyridine Can see falsely depressed Can see falsely elevated result with up to 29% results with up to 10% decrease in measurement increase in measurement Recommend patients be collected for this test prior to administration of either drug. Alkaline Phosphatase 107 U/L 38-126 Normal (applies to non-num mesfin results) [facility] can increase Alkaline Phosp le vels up to 2 times the normal adult value. Normal values for children and adolescents are 2 to 3 times the normal adult value. Total Protein 6.0-8.2 Below low normal [facility] Albumin Level 3.4-5.0 Below low normal [facility] ID Date Data Source [id number] 04/06/2021 05:31:00 PM EDT [facility] CULTURE IF NECESSARY Name Value Range Interpretation Code Description Data Tequila rce(s) Supporting Document(s) Color,Urine Colorl-Dk Y Normal (applies to non-numeric res ults) [facility] Clarity,Urine Clear Normal (applies to non-numeric re sults) [facility] Specific [place],Urine 1.005-1.030 Normal (applies to non- numeric results) [facility] pH,Urine 5.0-8.0 Normal (applies to non-numeric resul ts) [facility] Protein,Urine Negative Normal (applies to non-numeric re sults) [facility] Glucose,Urine Negative Normal (applies to non-numeric re sults) [facility] Ketones,Urine Negative Normal (applies to non-numeric re sults) [facility] Blood,Urine [facility] Bilirubin,Urine Negative Normal (applies to non-numeric results) [facility] Urobilinogen,Urine 0.2-1.0 Normal (applies to non-numer ic results) [facility] Leukocyte Esterase,Urine Negative Normal (applies to non -numeric results) [facility] Nitrite,Urine Negative Normal (applies to non-numeric re sults) [facility] RBC,Urine None Seen [facility] WBC,Urine None Seen Normal (applies to non-numeric resul ts) [facility] Casts,Urine None Seen Normal (applies to non-numeric resu lts) [facility] Epithelial Cells,Urine None - Few Normal (applies to non-n umeric results) [facility] Bacteria,Urine None Seen Normal (applies to non-numeric r esults) [facility] ID Date Data Source [id number] 04/04/2021 08:31:00 AM EDT [facility] Name Value Range Interpretation Code Description Data Tequila rce(s) Supporting Document(s) Procalcitonin 0.00-0.24 Above high normal [facility] 1.Risk of Progression to severe sepsis a nd septic shock: < 0.50 ng/mL Low Risk of severe sepsis and/or septic shock > 2.00 ng/mL High Risk of severe sepsis and/or septic shock 2.Decision on antibiotic discontinuation for suspected or confirmed septic patients: Antibiotic therapy may be discontinued if the current PCT is <0.50 ng/mL or if there is an 80% decrease in PCT. 3.Decision for antibiotic therapy for patients with suspected or confirmed Lower Respiratory Tract Infection (LRTI): >0.25 ng/mL - Antibiotic therapy encouraged 4.Decision on antibiotic discontinuation for patients with suspected or confirmed LRTI: Antibiotic therapy may be discontinued if the current PCT is <0.25 ng/mL or if there is an 80% decrease in PCT. NOTE: Antibiotic therapy should be considered regardless of PCT result if the patient is clinically unstable, is at high risk for adverse outcome, has strong evidence of bacterial pathogen or the clinical context indicates antibiotic therapy is warranted. ID Date Data Source [id number] 04/04/2021 08:02:00 AM EDT [facility] Name Value Range Interpretation Code Description Data Tequila rce(s) Supporting Document(s) Sodium 144 mmol/L 137-145 Normal (applies to non-numeric resul ts) [facility] Potassium 3.5-5.1 Normal (applies to non-numeric resul ts) [facility] Chloride 111 mmol/L 98-112 Normal (applies to non-numeric resul ts) [facility] Carbon Dioxide CO2 22.0-33.0 Normal (applies to non-numer ic results) [facility] Anion Gap 4.0-11.0 Normal (applies to non-numeric resul ts) [facility] BUN 21 mg/dL 7-17 Above high normal [facility] Creatinine 0.70-1.20 Normal (applies to non-numeric resul ts) [facility] GFR 54 mL/min >60 Below low normal [facility] Result based on MDRD formula. Glucose Level 89 mg/dL 74-99 Normal (applies to non-numeric re sults) [facility] The reference range is only applicable w hen fasting. Calcium-Uncorrected 8.4-10.2 Normal (applies to non-nume ivonne results) [facility] Corrected Calcium 8.4-10.2 Normal (applies to non-numeri c results) [facility] ID Date Data Source [id number] 04/04/2021 07:41:00 AM EDT [facility] Name Value Range Interpretation Code Description Data Tequila rce(s) Supporting Document(s) White Blood Count 4.8-10.8 Normal (applies to non-numeri c results) [facility] Red Blood Count 3.68-5.22 Normal (applies to non-numeric results) [facility] Hemoglobin 11.2-15.7 Below low normal [facility] Hematocrit 34.1-44.9 Below low normal [facility] Mean Corpuscular Volume 81-99 Normal (applies to non- numeric results) [facility] Mean Corpuscular Hemoglobin 27.0-33.0 Normal (appli es to non-numeric results) [facility] Mean Corpuscular HGB Conc 32.0-36.0 Normal (applies to no n-numeric results) [facility] Red Cell Distribution Width 11.5-14.5 Normal (appli es to non-numeric results) [facility] Platelet Count 201 X10 3/uL 130-450 Normal (applies to non-numeric results) [facility] Mean Platelet Volume 9.5-12.7 Normal (applies to non-num mesfin results) [facility] Imm Grans% (AUTO) 1 % 0-2 Normal (applies to non-numeri c results) [facility] Neutrophils % (AUTO) 67 % 40-75 Normal (applies to non-num mesfin results) [facility] Lymphocytes % (AUTO) 20 % 21-46 Below low normal [facility] Monocytes % (AUTO) 10 % 5-12 Normal (applies to non-numer ic results) [facility] Eosinophils % (AUTO) 1 % 1-5 Normal (applies to non-num mesfin results) [facility] Basophils % (AUTO) 1 % 0-1 Normal (applies to non-numer ic results) [facility] Imm Grans# (AUTO) 0.0-0.5 Normal (applies to non-numeri c results) [facility] Neutrophils # (AUTO) 1.5-8.1 Normal (applies to non-num mesfin results) [facility] Lymphocytes # (AUTO) 1.0-3.1 Normal (applies to non-num mesfin results) [facility] Monocytes # (AUTO) 0.2-1.3 Normal (applies to non-numer ic results) [facility] Eosinophils# (AUTO) 0.0-0.5 Normal (applies to non-nume ivonne results) [facility] Basophils # (AUTO) 0.0-0.1 Normal (applies to non-numer ic results) [facility] ID Date Data Source [id number] 04/03/2021 06:16:00 PM EDT [facility] Name Value Range Interpretation Code Description Data Tequila rce(s) Supporting Document(s) Procalcitonin 0.00-0.24 PH [facility] kristy CUNHA read back critical informati on 04/03/21 1814 LAB.BOVAL 1.Risk of Progression to severe sepsis and septic shock: < 0.50 ng/mL Low Risk of severe sepsis and/or septic shock > 2.00 ng/mL High Risk of severe sepsis and/or septic shock 2.Decision on antibiotic discontinuation for suspected or confirmed septic patients: Antibiotic therapy may be discontinued if the current PCT is <0.50 ng/mL or if there is an 80% decrease in PCT. 3.Decision for antibiotic therapy for patients with suspected or confirmed Lower Respiratory Tract Infection (LRTI): >0.25 ng/mL - Antibiotic therapy encouraged 4.Decision on antibiotic discontinuation for patients with suspected or confirmed LRTI: Antibiotic therapy may be discontinued if the current PCT is <0.25 ng/mL or if there is an 80% decrease in PCT. NOTE: Antibiotic therapy should be considered regardless of PCT result if the patient is clinically unstable, is at high risk for adverse outcome, has strong evidence of bacterial pathogen or the clinical context indicates antibiotic therapy is warranted. ID Date Data Source [id number] 04/03/2021 07:40:00 AM EDT [facility] Name Value Range Interpretation Code Description Data Tequila rce(s) Supporting Document(s) Sodium 142 mmol/L 137-145 Normal (applies to non-numeric resul ts) [facility] Potassium 3.5-5.1 Normal (applies to non-numeric resul ts) [facility] Chloride 113 mmol/L 98-112 Above high normal [facility] Carbon Dioxide CO2 22.0-33.0 Below low normal [facility] Anion Gap 4.0-11.0 Normal (applies to non-numeric resul ts) [facility] BUN 22 mg/dL 7-17 Above high normal [facility] Creatinine 0.70-1.20 Normal (applies to non-numeric resul ts) [facility] GFR 45 mL/min >60 Below low normal [facility] Result based on MDRD formula. Glucose Level 91 mg/dL 74-99 Normal (applies to non-numeric re sults) [facility] The reference range is only applicable w hen fasting. Calcium-Uncorrected 8.4-10.2 Below low normal [facility] Corrected Calcium 8.4-10.2 Normal (applies to non-numeri c results) [facility] ID Date Data Source [id number] 04/03/2021 07:33:00 AM EDT [facility] Name Value Range Interpretation Code Description Data Tequila rce(s) Supporting Document(s) White Blood Count 4.8-10.8 Normal (applies to non-numeri c results) [facility] Red Blood Count 3.68-5.22 Normal (applies to non-numeric results) [facility] Hemoglobin 11.2-15.7 Below low normal [facility] Hematocrit 34.1-44.9 Below low normal [facility] Mean Corpuscular Volume 81-99 Normal (applies to non- numeric results) [facility] Mean Corpuscular Hemoglobin 27.0-33.0 Normal (appli es to non-numeric results) [facility] Mean Corpuscular HGB Conc 32.0-36.0 Normal (applies to no n-numeric results) [facility] Red Cell Distribution Width 11.5-14.5 Normal (appli es to non-numeric results) [facility] Platelet Count 154 X10 3/uL 130-450 Normal (applies to non-numeric results) [facility] Mean Platelet Volume 9.5-12.7 Normal (applies to non-num mesfin results) [facility] Imm Grans% (AUTO) 1 % 0-2 Normal (applies to non-numeri c results) [facility] Neutrophils % (AUTO) 84 % 40-75 Above high normal [facility] Lymphocytes % (AUTO) 7 % 21-46 Below low normal [facility] Monocytes % (AUTO) 7 % 5-12 Normal (applies to non-numer ic results) [facility] Eosinophils % (AUTO) 1 % 1-5 Normal (applies to non-num mesfin results) [facility] Basophils % (AUTO) 0 % 0-1 Normal (applies to non-numer ic results) [facility] Imm Grans# (AUTO) 0.0-0.5 Normal (applies to non-numeri c results) [facility] Neutrophils # (AUTO) 1.5-8.1 Normal (applies to non-num mesfin results) [facility] Lymphocytes # (AUTO) 1.0-3.1 Below low normal [facility] Monocytes # (AUTO) 0.2-1.3 Normal (applies to non-numer ic results) [facility] Eosinophils# (AUTO) 0.0-0.5 Normal (applies to non-nume ivonne results) [facility] Basophils # (AUTO) 0.0-0.1 Normal (applies to non-numer ic results) [facility] ID Date Data Source [id number] 04/02/2021 01:53:00 PM EDT [facility] Name Value Range Interpretation Code Description Data Tequila rce(s) Supporting Document(s) Procalcitonin 0.00-0.24 PH [facility] ospital [facility] [place] read back critical inform ation 04/02/21 1351 LAB.[facility] 1.Risk of Progression to severe sepsis and septic shock: < 0.50 ng/mL Low Risk of severe sepsis and/or septic shock > 2.00 ng/mL High Risk of severe sepsis and/or septic shock 2.Decision on antibiotic discontinuation for suspected or confirmed septic patients: Antibiotic therapy may be discontinued if the current PCT is <0.50 ng/mL or if there is an 80% decrease in PCT. 3.Decision for antibiotic therapy for patients with suspected or confirmed Lower Respiratory Tract Infection (LRTI): >0.25 ng/mL - Antibiotic therapy encouraged 4.Decision on antibiotic discontinuation for patients with suspected or confirmed LRTI: Antibiotic therapy may be discontinued if the current PCT is <0.25 ng/mL or if there is an 80% decrease in PCT. NOTE: Antibiotic therapy should be considered regardless of PCT result if the patient is clinically unstable, is at high risk for adverse outcome, has strong evidence of bacterial pathogen or the clinical context indicates antibiotic therapy is warranted. ID Date Data Source [id number] 04/02/2021 10:04:00 AM EDT [facility] Name Value Range Interpretation Code Description Data Tequila rce(s) Supporting Document(s) Sodium 142 mmol/L 137-145 Normal (applies to non-numeric resul ts) [facility] Potassium 3.5-5.1 Normal (applies to non-numeric resul ts) [facility] Chloride 113 mmol/L 98-112 Above high normal [facility] Carbon Dioxide CO2 22.0-33.0 Below low normal [facility] Anion Gap 4.0-11.0 Normal (applies to non-numeric resul ts) [facility] BUN 29 mg/dL 7-17 Above high normal [facility] Creatinine 0.70-1.20 Above high normal [facility] GFR 30 mL/min >60 Below low normal [facility] Result based on MDRD formula. Glucose Level 131 mg/dL 74-99 Above high normal [facility] The reference range is only applicable w hen fasting. Calcium-Uncorrected 8.4-10.2 Below low normal [facility] Corrected Calcium 8.4-10.2 Normal (applies to non-numeri c results) [facility] Bilirubin,Total 0.2-1.3 Normal (applies to non-numeric results) [facility] SGOT(AST) 15 U/L 14-36 Normal (applies to non-numeric resul ts) [facility] SGPT(ALT) 13 U/L 9-52 Normal (applies to non-numeric resul ts) [facility] Alkaline Phosphatase 93 U/L 38-126 Normal (applies to non-num mesfin results) [facility] can increase Alkaline Phosp le vels up to 2 times the normal adult value. Normal values for children and adolescents are 2 to 3 times the normal adult value. Total Protein 6.3-8.2 Below low normal [facility] Albumin 3.5-5.0 Below low normal [facility] ID Date Data Source [id number] 04/02/2021 09:37:00 AM EDT [facility] Name Value Range Interpretation Code Description Data Tequila rce(s) Supporting Document(s) White Blood Count 4.8-10.8 Normal (applies to non-numeri c results) [facility] Red Blood Count 3.68-5.22 Below low normal [facility] Hemoglobin 11.2-15.7 Below low normal [facility] Hematocrit 34.1-44.9 Below low normal [facility] Mean Corpuscular Volume 81-99 Normal (applies to non- numeric results) [facility] Mean Corpuscular Hemoglobin 27.0-33.0 Normal (appli es to non-numeric results) [facility] Mean Corpuscular HGB Conc 32.0-36.0 Normal (applies to no n-numeric results) [facility] Red Cell Distribution Width 11.5-14.5 Normal (appli es to non-numeric results) [facility] Platelet Count 126 X10 3/uL 130-450 Below low normal [facility] Mean Platelet Volume 9.5-12.7 Normal (applies to non-num mesfin results) [facility] Imm Grans% (AUTO) 1 % 0-2 Normal (applies to non-numeri c results) [facility] Neutrophils % (AUTO) 88 % 40-75 Above high normal [facility] Lymphocytes % (AUTO) 5 % 21-46 Below low normal [facility] Monocytes % (AUTO) 5 % 5-12 Normal (applies to non-numer ic results) [facility] Eosinophils % (AUTO) 1 % 1-5 Normal (applies to non-num mesfin results) [facility] Basophils % (AUTO) 0 % 0-1 Normal (applies to non-numer ic results) [facility] Imm Grans# (AUTO) 0.0-0.5 Normal (applies to non-numeri c results) [facility] Neutrophils # (AUTO) 1.5-8.1 Above high normal [facility] Lymphocytes # (AUTO) 1.0-3.1 Below low normal Ca [facility] Monocytes # (AUTO) 0.2-1.3 Normal (applies to non-numer ic results) [facility] Eosinophils# (AUTO) 0.0-0.5 Normal (applies to non-nume ivonne results) [facility] Basophils # (AUTO) 0.0-0.1 Normal (applies to non-numer ic results) [facility] ID Date Data Source [id number] 04/06/2021 09:37:00 PM EDT [facility] Name Value Range Interpretation Code Description Data Tequila rce(s) Supporting Document(s) Blood Culture-Venous [facility] ID Date Data Source [id number] 04/06/2021 09:37:00 PM EDT [facility] Name Value Range Interpretation Code Description Data Tequila rce(s) Supporting Document(s) Blood Culture-Venous [facility] ID Date Data Source [id number] 04/01/2021 10:03:00 PM EDT [facility] Name Value Range Interpretation Code Description Data Tequila rce(s) Supporting Document(s) Troponin I 0.000-0.045 Normal (applies to non-numeric resu lts) [facility] ID Date Data Source [id number] 04/01/2021 10:00:00 PM EDT [facility] Name Value Range Interpretation Code Description Data Tequila rce(s) Supporting Document(s) Sodium 142 mmol/L 137-145 Normal (applies to non-numeric resul ts) [facility] Potassium 3.5-5.1 Normal (applies to non-numeric resul ts) [facility] Chloride 112 mmol/L 98-112 Normal (applies to non-numeric resul ts) [facility] Carbon Dioxide CO2 22.0-33.0 Normal (applies to non-numer ic results) [facility] Anion Gap 4.0-11.0 Normal (applies to non-numeric resul ts) [facility] BUN 38 mg/dL 7-17 Above high normal [facility] Creatinine 0.70-1.20 Above high normal [facility] GFR 19 mL/min >60 Below low normal [facility] Result based on MDRD formula. Glucose Level 104 mg/dL 74-99 Above high normal [facility] The reference range is only applicable w hen fasting. Calcium-Uncorrected 8.4-10.2 Below low normal [facility] Corrected Calcium 8.4-10.2 Normal (applies to non-numeri c results) [facility] Bilirubin,Total 0.2-1.3 Normal (applies to non-numeric results) [facility] SGOT(AST) 14 U/L 14-36 Normal (applies to non-numeric resul ts) [facility] SGPT(ALT) 15 U/L 9-52 Normal (applies to non-numeric resul ts) [facility] Alkaline Phosphatase 96 U/L 38-126 Normal (applies to non-num mesfin results) [facility] can increase Alkaline Phosp le vels up to 2 times the normal adult value. Normal values for children and adolescents are 2 to 3 times the normal adult value. Total Protein 6.3-8.2 Below low normal [facility] Albumin 3.5-5.0 Below low normal [facility] ID Date Data Source [id number] 04/01/2021 09:46:00 PM EDT [facility] Name Value Range Interpretation Code Description Data Tequila rce(s) Supporting Document(s) White Blood Count 4.8-10.8 Above high normal [facility] Red Blood Count 3.68-5.22 Below low normal [facility] Hemoglobin 11.2-15.7 Below low normal [facility] Hematocrit 34.1-44.9 Below low normal [facility] Mean Corpuscular Volume 81-99 Normal (applies to non- numeric results) [facility] Mean Corpuscular Hemoglobin 27.0-33.0 Normal (appli es to non-numeric results) [facility] Mean Corpuscular HGB Conc 32.0-36.0 Normal (applies to no n-numeric results) [facility] Red Cell Distribution Width 11.5-14.5 Normal (appli es to non-numeric results) [facility] Platelet Count 121 X10 3/uL 130-450 Below low normal [facility] Mean Platelet Volume 9.5-12.7 Normal (applies to non-num mesfin results) [facility] Imm Grans% (AUTO) 1 % 0-2 Normal (applies to non-numeri c results) [facility] Neutrophils % (AUTO) 88 % 40-75 Above high normal [facility] Lymphocytes % (AUTO) 5 % 21-46 Below low normal Ca [facility] Monocytes % (AUTO) 6 % 5-12 Normal (applies to non-numer ic results) [facility] Eosinophils % (AUTO) 1 % 1-5 Normal (applies to non-num mesfin results) [facility] Basophils % (AUTO) 0 % 0-1 Normal (applies to non-numer ic results) [facility] Imm Grans# (AUTO) 0.0-0.5 Normal (applies to non-numeri c results) [facility] Neutrophils # (AUTO) 1.5-8.1 Above high normal [facility] Lymphocytes # (AUTO) 1.0-3.1 Below low normal [facility] Monocytes # (AUTO) 0.2-1.3 Normal (applies to non-numer ic results) [facility] Eosinophils# (AUTO) 0.0-0.5 Normal (applies to non-nume ivonne results) [facility] Basophils # (AUTO) 0.0-0.1 Normal (applies to non-numer ic results) [facility] ID Date Data Source [id number] 04/01/2021 07:28:00 PM EDT [facility] Name Value Range Interpretation Code Description Data Tequila rce(s) Supporting Document(s) Troponin I 0.000-0.045 Normal (applies to non-numeric resu lts) [facility] ID Date Data Source [id number] 04/01/2021 08:17:00 PM EDT [facility] Name Value Range Interpretation Code Description Data Tequila rce(s) Supporting Document(s) Color,Urine Yellow Normal (applies to non-numeric resu lts) [facility] Clarity,Urine Clear Normal (applies to non-numeric re sults) [facility] Specific [place],Urine 1.001-1.030 Normal (applies to non- numeric results) [facility] PH,Urine 5.0-8.0 Normal (applies to non-numeric resul ts) [facility] Protein,Urine Negative [facility] ospital Glucose,Urine (UA) Negative Normal (applies to non-numer ic results) [facility] Ketones,Urine Negative Normal (applies to non-numeric re sults) [facility] Blood,Urine Negative [facility] pital Bilirubin,Urine Negative Normal (applies to non-numeric results) [facility] Urobilinogen,Urine Norm 0.2-1 Normal (applies to non-numer ic results) [facility] Leukocyte Esterase,Urine Negative [facility] Nitrite,Urine Negative Normal (applies to non-numeric re sults) [facility] ID Date Data Source [id number] 04/01/2021 08:17:00 PM EDT [facility] Name Value Range Interpretation Code Description Data Tequila rce(s) Supporting Document(s) RBC,Auto Urine 0-2 Normal (applies to non-numeric r esults) [facility] WBC Urine Auto 0-10 Normal (applies to non-numeric r esults) [facility] Casts,Hyaline,Urine Auto 0-2 Normal (applies to non -numeric results) [facility] Bacteria Urine Auto None Seen Normal (applies to non-nume ivonne results) [facility] Epithelial Cell Ur Auto None-Few Normal (applies to non- numeric results) [facility] ID Date Data Source [id number] 04/04/2021 07:34:00 AM EDT [facility] Collected By: Nurse Initials: AD Name Value Range Interpretation Code Description Data Tequila rce(s) Supporting Document(s) Urine Culture [facility] ospital ID Date Data Source [id number] 04/02/2021 12:35:00 PM EDT [facility] spital Procedure Performed By: [facility] [address] [place] [address] Director: Reji Pal MD Mixed ramo: Mixed ramo, probable contamination. Name Value Range Interpretation Code Description Data Tequila rce(s) Supporting Document(s) ID Date Data Source [id number] 04/02/2021 12:24:00 PM EDT [facility] Procedure Performed By: [facility] [address] [place] [address] Director: Reji Pal MD Name Value Range Interpretation Code Description Data [facility] rce(s) Supporting Document(s) Urine Culture Normal (applies to non-numeric re sults) [facility] ID Date Data Source [id number] 04/01/2021 02:34:00 PM EDT [facility] Collected By: Nurse Initials: ck Time Collected: 1410 Collected By: Nurse Initials: ck Time Collected: 1410 Name Value Range Interpretation Code Description Data [facility] rce(s) Supporting Document(s) Color,Urine Colorl-Dk Y Normal (applies to non-numeric res ults) [facility] Clarity,Urine Clear [facility] [place] Specific [place],Urine 1.005-1.030 Normal (applies to non- numeric results) [facility] pH,Urine 5.0-8.0 Normal (applies to non-numeric resul ts) [facility] Protein,Urine Negative Normal (applies to non-numeric re sults) [facility] Glucose,Urine Negative Normal (applies to non-numeric re sults) [facility] Ketones,Urine Negative Normal (applies to non-numeric re sults) [facility] Blood,Urine Negative [facility] l Bilirubin,Urine Negative Normal (applies to non-numeric results) [facility] Urobilinogen,Urine 0.2-1.0 Normal (applies to non-numer ic results) [facility] Leukocyte Esterase,Urine Negative [facility] Nitrite,Urine Negative Normal (applies to non-numeric re sults) [facility] ID Date Data Source [id number] 04/01/2021 02:34:00 PM EDT [facility] Collected By: Nurse Initials: ck Time Collected: 1409 Collected By: Nurse Initials: ck Time Collected: 1409 Name Value Range Interpretation Code Description Data Tequila rce(s) Supporting Document(s) RBC,Urine None Seen [facility] WBC,Urine None Seen [facility] Casts,Urine None Seen Normal (applies to non-numeric resu lts) [facility] Squamous Cells,Urine None Seen [facility] Bacteria,Urine None Seen [facility] ital Mucus,Urine None Seen [facility] ID Date Data Source [id number] 04/03/2021 07:22:00 AM [facility] Imaging Services Department Imaging Report [address], [place] [address] %(RAD)RES..mtdd.print.filter("line") Name: TRAVIS GAVIRIA : 1950 Age/Sex: 70F Ordering Provider: MARCOS Germain Med Rec #: [id number] Reg Status: [facility] Room #: Date of Service: 04/01/21 Report Number: [id number] cc:Migel Wallace IV, FLIGHT MECHANIC Send Report To: [id number] CT/CT Abdomen & Pelvis No Contras Reason for exam: hypotension, elevated bun/creat Comparison: Multislice imaging from the dome of the diaphragm to the ischial tuberosities was preformed. FINDINGS: The lungs are clear of mild dependent atelectasis. The liver shows a small low density lesion in the anterior left lobe. No significant changes from previous study. This measures 9 mm. Gallbladder is surgically absent. The pancreas shows no evidence of mass. No peripancreatic inflammatory changes. Spleen is unremarkable. No adrenal nodules exist. The right kidney shows fullness of the renal pelvis. This is unchanged from thecomparison study. Mild hydronephrosis. An obstructive calculus, however, is not seen bilaterally. There is no evidenceof a renal calculus as well. Left kidney shows perinephric stranding. Stable fluid, similar to the previous study. Suspicion that some of this likely reflects a parapelvic cyst. As noted, no evidence of an obstructive calculus. Normal caliber aorta. No retroperitoneal adenopathy. No evidence of free air or free fluid. Stomach has normal distension. Small bowel is of normal caliber. Appendix is retrocecal. No associated inflammatorychanges. The colon demonstrates normal caliber. Scattered diverticula. No evidence of active diverticulitis. Ventral hernia which contains a segment of the transversecolon. No evidence of incarceration or obstruction at this time. There has beenprogression since the previous study. The bony structures are intact. Stable degenerative disc disease near the lumbosacral junction. PELVIS: Urinary bladder shows mild anterior stranding. There is a small sohail of intraluminal air. Sigmoid colon without inflammatory changes. Diverticula without evidence of active diverticulitis. Mild bulbous appearance at the region of the sigmoid anastomosis. No uterus or adnexal masses exists. There is no free fluid. Normal caliber vessels. No extra peritoneal adenopathy. No evidence of hernia. The bony structures are intact. IMPRESSION: 1. Inflammatory changes of the left kidney. No evidence of an obstructing calculus bilaterally. Correlate for pyelonephritis, this could reflect reflux pyelonephrosis as a small focus of intraluminal air is identified in the bladderwith anterior stranding of the urinary bladder. The right kidney shows mild hydronephrosis. Significance is not clear, similar noted on the previous study. Less significant perinephric stranding on right. 2. Ventral hernia containing the transverse colon. No evidence of obstruction or incarceration, but there has been progression since the previous study. 2. While performing the above CT exam, the following dose reduction techniques wereused: *Automated exposure control *Adjustment of the mA and/or kV according to patient size *Use of iterative reconstruction technique CT Dose in mGy: Contrast Agent: Amount in ml: Method of Administration: REPORT SIGNATURE ON FILE Reported By: Migel Zimmerman MD <Electronically signed by Migel Zimmerman MD> 04/03/21 1230 Dictation Date/Time: 04/01/21 1438 Transcribed Date/Time: 04/03/21 0722 Launch Check Out: FABY Name Value Range Interpretation Code Description Data Tequila rce(s) Supporting Document(s) ID Date Data Source [id number] 04/03/2021 07:15:00 AM EDT [facility] Imaging Services Department Imaging Report [address], [place] [address] %(RAD)RES..mtdd.print.filter("line") Name: TRAVIS GAVIRIA : 1950 Age/Sex: 70F Ordering Provider: MARCOS Germain Med Rec #: [id number] Reg Status: [facility] ER Room #: Date of Service: 04/01/21 Report Number: [id number] cc:Migel Wallace IV, FLIGHT MECHANIC Send Report To: [id number] CT/CT Chest No Contrast Reason for exam: hypotension, elevated bun/creat FINDINGS: Multislice imaging from the thoracic inlet through the diaphragm. Neck base without thyroid nodules. No supraclavicular adenopathy. The medi astinum shows no adenopathy. There is a borderline pretracheal lymph node, but this has a normal morphology with a fatty hilum. It has a minimal dimension of 9 mm. Subcarinal lymph node is not enlarged. Vessels of the mediastinum have normal caliber. The heart size is also normal. No fluid in the pleural or pericardial space. The esophagus has a normal CT appearance. No evidence of an endobronchial lesion. Both lungs are free of consolidation. Minimal dependent atelectasis. No evidence of mass. The bony structures are intact. Thoracic spondylosis. What is seen of the upper abdomen shows a small low density lesion in the anterior left lobe of the liver, which is unchanged from previous studies. No adrenal nodules are noted. The inflammatory changes of the left kidney are partially visualized. IMPRESSION: No acute cardiopulmonary process. Inflammatory changes of the left kidneys are only partially visualized. While performing the above CT exam, the following dose reduction techniques wereused: *Automated exposure control *Adjustment of the mA and/or kV according to patient size *Use of iterative reconstruction technique CT Dose in mGy: Contrast Agent: Amount in ml: Method of Administration: REPORT SIGNATURE ON FILE Reported By: Migel Zimmerman MD <Electronically signed by Migel Zimmerman MD> 04/03/21 1230 Dictation Date/Time: 04/01/21 1438 Transcribed Date/Time: 04/03/21 0715 Launch Check Out: FABY Name Value Range Interpretation Code Description Data Tequila rce(s) Supporting Document(s) ID Date Data Source [id number] 04/07/2021 03:32:00 AM EDT [facility] NO GROWTH AFTER 120 HOURS (5 Days) Proc edure Performed By: [facility] [address] [place] [address] Director: Marii Fischer Name Value Range Interpretation Code Description Data Tequila rce(s) Supporting Document(s) ID Date Data Source [id number] 04/06/2021 06:20:00 PM EDT [facility] NO GROWTH AFTER 120 HOURS (5 Days) Pr ocedure Performed By: [facility] [address] [place] [address] Director: Marii Fischer Name Value Range Interpretation Code Description Data Tequila rce(s) Supporting Document(s) ID Date Data Source [id number] 04/07/2021 03:32:00 AM EDT [facility] NO GROWTH AFTER 120 HOURS (5 Days) Proc edure Performed By: [facility] [address] [place] [address] Director: Marii Fischer Name Value Range Interpretation Code Description Data Tequila rce(s) Supporting Document(s) ID Date Data Source [id number] 04/06/2021 06:20:00 PM EDT [facility] NO GROWTH AFTER 120 HOURS (5 Days) Pr ocedure Performed By: [facility] [address] [place] [address] Director: Marii Fischer Name Value Range Interpretation Code Description Data Tequila rce(s) Supporting Document(s) ID Date Data Source [id number] 04/01/2021 01:46:00 PM EDT [facility] Name Value Range Interpretation Code Description Data Tequila rce(s) Supporting Document(s) Lactic Acid 0.4-2.0 Normal (applies to non-numeric resu lts) [facility] ID Date Data Source [id number] 04/01/2021 01:00:00 PM [facility] Name Value Range Interpretation Code Description Data Tequila rce(s) Supporting Document(s) Respiratory specimen severe acute respir atory syndrome coronavirus 2 (SARS-CoV-2) RNA Negative (qualifier value) [facility] This lab was ordered by [facility] and reported by . ID Date Data Source [id number] 04/01/2021 01:22:00 PM EDT [facility] First test? UNKNOWNEmployed in health[facility] re? UNKNOWNSymptomatic per CDC? UNKNOWNHospitalized? NOICU? NOResident in congregated care? ex long-term, [facility] UNKNOWN? UNKNOWN Name Value Range Interpretation Code Description Data Tequila rce(s) Supporting Document(s) SARS-CoV-2 RNA Negative Normal (applies to non-numeric r esults) [facility] Negative results should be treated as pr esumptive and, if inconsistent with clinical signs and symptoms or necessary for patient management, should be tested with different authorized or cleared molecular tests. Negative results do not preclude SARS-CoV-2 infection and should not be used as the sole basis for patient management decisions. Negative results should be considered in the context of a patient???s recent exposures, history and the presence of clinical signs and symptoms consistent with COVID-19. This test has not been FDA cleared or approved; this test has been authorized by FDA under an Emergency Use Authorization for use by laboratories certified under the Clinical Laboratory Improvement Amendments of 1988 (CLIA), 42 U.S.C. ???263a, to perform moderate complexity/high complexity tests and at the Point of Care (POC), i.e., in patient care settings operating under a CLIA Certificate of Waiver, Certificate of Compliance, or Certificate of Accreditation. Factsheets for healthcare providers: https://www.fda.gov/media/514883/download Factsheets for patients: https://www.fda.gov/media/612353/download The ID NOW Instrument is a rapid molecular in vitro diagnostic test utilizing an isothermal nucleic acid amplification technology intended for the qualitative detection of nucleic acid from the SARS-CoV-2 viral RNA. THIS IS A STATE REPORTABLE COMMUNICABLE DISEASE. Manual entry verified by Philip Reyes 04/01/21 1321 ID Date Data Source [id number] 04/02/2021 06:14:00 AM EDT [facility] Imaging Services Department Imaging Report [address] [place] [id number] %(RAD)RES..mtdd.print.filter("line") Name: TRAVIS GAVIRIA : 1950 Age/Sex: 70F Ordering Provider: MARCOS Germain Med Rec #: [id number] Reg Status: [facility] Room #: Date of Service: 04/01/21 Report Number: [id number] cc:Migel Wallace IV, FLIGHT MECHANIC Send Report To: [id number] XRP/XR Chest Xray Portable Reason for exam: ? sepsis FINDINGS: The cardiac and mediastinal silhouettes appear normal and the lungs are clear. The bones and soft tissues are normal. The upper abdomen is unremarkable. IMPRESSION: No acute disease identifiable. Time portable performed: 1306 Fluoroscopy time in seconds: Number of Exposures: Contrast Agent in ml: Method of Administration: REPORT SIGNATURE ON FILE Reported By: Corona Hurtado DO <Electronically signed by Corona Hurtado DO> 04/03/21 1216 Dictation Date/Time: 04/01/21 1314 Transcribed Date/Time: 04/02/21 0614 Launch Check Out: HENRY Name Value Range Interpretation Code Description Data Tequila rce(s) Supporting Document(s) ID Date Data Source [id number] 04/01/2021 01:15:00 PM EDT [facility] Name Value Range Interpretation Code Description Data Tequila rce(s) Supporting Document(s) Troponin I 0.000-0.056 Normal (applies to non-numeric resu lts) [facility] ID Date Data Source [id number] 04/01/2021 12:34:00 PM EDT [facility] Name Value Range Interpretation Code Description Data Tequila rce(s) Supporting Document(s) Ketones,Serum/Plasma Negative Normal (applies to non-num mesfin results) [facility] ID Date Data Source [id number] 04/01/2021 12:34:[address] [facility] Name Value Range Interpretation Code Description Data Tequila rce(s) Supporting Document(s) Sodium 138 mmol/L 136-145 Normal (applies to non-numeric resul ts) [facility] Potassium 3.5-5.1 Normal (applies to non-numeric resul ts) [facility] Chloride 101 mmol/L 98-107 Normal (applies to non-numeric resul ts) [facility] Carbon Dioxide CO2 21-32 Normal (applies to non-numer ic results) [facility] Anion Gap 5.0-16.0 Normal (applies to non-numeric resul ts) [facility] BUN 38 mg/dL 7-18 Above high normal [facility] ospital Creatinine,Serum 0.7-1.2 Above high normal [facility] GFR 15 mL/min >60 Below low normal [facility] Glucose Level 93 mg/dL 60-99 Normal (applies to non-numeric re sults) [facility] Reference range is only applicable when patient is fasting Note the following drug interference: Sulfasalazine Sulfapyridine Can see falsely depressed Can see falsely elevated result with up to 17% results with up to 11% decrease in measurement increase in measurement Recommend patients be collected for this test prior to administration of either drug. Calcium 8.5-10.1 Normal (applies to non-numeric resul ts) [facility] Bilirubin,Total 0.1-1.9 Normal (applies to non-numeric results) [facility] SGOT(AST) 15 U/L 15-37 Normal (applies to non-numeric resul ts) [facility] Note the following drug interference: Sulfasalazine Sulfapyridine Can see falsely depressed Can see falsely elevated result with up to 10% results with up to 10% decrease in measurement increase in measurement Recommend patients be collected for this test prior to administration of either drug. SGPT(ALT) 18 U/L 12-78 Normal (applies to non-numeric resul ts) [facility] Note the following drug interference: Sulfasalazine Sulfapyridine Can see falsely depressed Can see falsely elevated result with up to 29% results with up to 10% decrease in measurement increase in measurement Recommend patients be collected for this test prior to administration of either drug. Alkaline Phosphatase 105 U/L 38-126 Normal (applies to non-num mesfin results) [facility] can increase Alkaline Phosp le vels up to 2 times the normal adult value. Normal values for children and adolescents are 2 to 3 times the normal adult value. Total Protein 6.0-8.2 Normal (applies to non-numeric re sults) [facility] Albumin Level 3.4-5.0 Below low normal [facility] ID Date Data Source [id number] 04/01/2021 12:27:00 PM EDT [facility] Name Value Range Interpretation Code Description Data Tequila rce(s) Supporting Document(s) Hemoglobin A1c Normal (applies to non-numeric r esults) [facility] Reference Range Normal: < 5.7% Pr ediabetes: 5.7-6.4% Diabetes: > 6.5% Estimated Avg Glucose 111 mg/dL 126-240 Below low normal [facility] ID Date Data Source [id number] 04/01/2021 12:18:00 PM EDT [facility] Name Value Range Interpretation Code Description Data Tequila rce(s) Supporting Document(s) White Blood Count 3.5-10.5 Above high normal [facility] Red Blood Count 3.90-5.00 Normal (applies to non-numeric results) [facility] Hemoglobin 12.0-15.5 Below low normal [facility] ospital Hematocrit 34.9-44.5 Below low normal [facility] ospital Mean Corpuscular Volume 81.2-95.1 Normal (applies to non- numeric results) [facility] Mean Corpuscular Hgb 25.6-32.2 Normal (applies to non-num mesfin results) [facility] Mean Corpuscular Hgb Conc 32.0-36.0 Normal (applies to no n-numeric results) [facility] Red Cell Distribution Width 11.9-15.5 Normal (appli es to non-numeric results) [facility] Platelet Count 153 x10 3/uL 150-450 Normal (applies to non-numeric results) [facility] Mean Platelet Volume 9.4-12.4 Normal (applies to non-num mesfin results) [facility] Neutrophils% (Auto) 31.0-71.0 Above high normal [facility] Lymphocytes% (Auto) 20.0-55.0 Below low normal [facility] Monocytes% (Auto) 4.0-12.0 Normal (applies to non-numeri c results) [facility] Eosinophils% (Auto) 1.0-8.0 Below low normal [facility] Basophils% (Auto) 0.0-2.0 Normal (applies to non-numeri c results) [facility] Immature Granulocytes% (Auto) 0.0-2.0 Normal (zhanna lies to non-numeric results) [facility] Neutrophils# (Auto) 1.50-6.20 Above high normal [facility] Lymphocytes# (Auto) 1.20-4.00 Below low normal [facility] Monocytes# (Auto) 0.00-0.90 Above high normal [facility] Eosinophils# (Auto) 0.00-0.50 Normal (applies to non-nume ivonne results) [facility] Basophils# (Auto) 0.00-0.20 Normal (applies to non-numeri c results) [facility] Immature Granulocytes# (Auto) 0.00-7.00 No rmal (applies to non-numeric results) [facility] ID Date Data Source [id number] 01/26/2021 11:34:00 AM EDT [facility] Procedure Performed By: [facility] [address] [place] [address] Director: Reji Pal MD QUANTITY: >100,000/mL {ESCHERICHIA COLI} ESCHERICHIA COLISCT Name Value Range Interpretation Code Description Data Tequila rce(s) Supporting Document(s) ID Date Data Source [id number] 01/26/2021 11:34:00 AM EDT [facility] Procedure Performed By: [facility] [address] [place] [address] Director: Reji Pal MD QUANTITY: >100,000/mL {ESCHERICHIA COLI} ESCHERICHIA COLISCT Name Value Range Interpretation Code Description Data Tequila rce(s) Supporting Document(s) Ampicillin Results entered -- not verified [facility] Cefazolin Results entered -- not verified [facility] Cefepime Susceptible. Indicates for microbiol ogy susceptibilities only. [facility] ESBL - [facility] Ceftazadime Susceptible. Indicates for m icrobiology susceptibilities only. [facility] Ceftriaxone Susceptible. Indicates for m icrobiology susceptibilities only. [facility] Ciprofloxacin Susceptible. Ind icates for microbiology susceptibilities only. [facility] Ertapenem Susceptible. Indicates for microbiol ogy susceptibilities only. [facility] Gentamicin Susceptible. Indicates for microbiol ogy susceptibilities only. [facility] Levofloxacin Susceptible. Indicates for m icrobiology susceptibilities only. [facility] Nitrofurantoin Susceptible. Ind icates for microbiology susceptibilities only. [facility] Pipercillin/Tazobactam Results entered -- not v erified [facility] Trimeth/Sulfamethoxazole Results entered -- not verified [facility] ID Date Data Source [id number] 01/24/2021 02:50:00 PM EDT [facility] Name Value Range Interpretation Code Description Data Tequila rce(s) Supporting Document(s) Color,Urine Colorl-Dk Y Normal (applies to non-numeric res ults) [facility] Clarity,Urine Clear [facility] [place] Specific [place],Urine 1.005-1.030 Normal (applies to non- numeric results) [facility] pH,Urine 5.0-8.0 Normal (applies to non-numeric resul ts) [facility] Protein,Urine Negative Normal (applies to non-numeric re sults) [facility] Glucose,Urine Negative Normal (applies to non-numeric re sults) [facility] Ketones,Urine Negative Normal (applies to non-numeric re sults) [facility] Blood,Urine Negative [facility] l Bilirubin,Urine Negative Normal (applies to non-numeric results) [facility] Urobilinogen,Urine 0.2-1.0 Normal (applies to non-numer ic results) [facility] Leukocyte Esterase,Urine Negative [facility] Nitrite,Urine Negative [facility] bev RBC,Urine None Seen [facility] WBC,Urine None Seen [facility] Casts,Urine None Seen Normal (applies to non-numeric resu lts) [facility] Squamous Cells,Urine None Seen [facility] Renal Cells,Urine None Seen [facility] ospital Bacteria,Urine None Seen [facility] ital ID Date Data Source [id number] 01/26/2021 11:13:00 AM EDT [facility] Procedure Performed By: [facility] [address] [place] [address] Director: Reji Pal MD Name Value Range Interpretation Code Description Data Tequila rce(s) Supporting Document(s) Urine Culture [facility] ospital ID Date Data Source [id number] 01/26/2021 11:13:00 AM EDT [facility] Procedure Performed By: [facility] [address] [place] [address] Director: Reji Pal MD Name Value Range Interpretation Code Description Data Tequila rce(s) Supporting Document(s) Ampicillin Results entered -- not verified [facility] Cefazolin Results entered -- not verified [facility] Cefepime Susceptible. Indicates for microbiol ogy susceptibilities only. [facility] Ceftazadime Susceptible. Indicates for m icrobiology susceptibilities only. [facility] Ceftriaxone Susceptible. Indicates for m icrobiology susceptibilities only. [facility] Ciprofloxacin Susceptible. Ind icates for microbiology susceptibilities only. [facility] Ertapenem Susceptible. Indicates for microbiol ogy susceptibilities only. [facility] Gentamicin Susceptible. Indicates for microbiol ogy susceptibilities only. [facility] Levofloxacin Susceptible. Indicates for m icrobiology susceptibilities only. [facility] Nitrofurantoin Susceptible. Ind icates for microbiology susceptibilities only. [facility] Pipercillin/Tazobactam Results entered -- not v erified [facility] Trimeth/Sulfamethoxazole Results entered -- not verified [facility] ID Date Data Source [id number] 08/14/2020 05:18:00 PM EST [facility] Procedure Performed By: [facility] [address] [place] [address] Director: Reji Pal MD Name Value Range Interpretation Code Description Data Tequila rce(s) Supporting Document(s) Urine Culture Normal (applies to non-numeric re sults) [facility] ID Date Data Source [id number] 08/15/2020 07:52:00 AM EST [facility] Procedure Performed By: [facility] [address] [place] [address] Director: Reji Pal MD Mixed ramo: Mixed ramo, probable contamination. Name Value Range Interpretation Code Description Data Tequila rce(s) Supporting Document(s) ID Date Data Source [id number] 08/12/2020 11:12:00 AM EST [facility] Name Value Range Interpretation Code Description Data [facility] rce(s) Supporting Document(s) Color,Urine Colorl-Dk Y Normal (applies to non-numeric res ults) [facility] Clarity,Urine Clear Normal (applies to non-numeric re sults) [facility] Specific [place],Urine 1.005-1.030 Normal (applies to non- numeric results) [facility] pH,Urine 5.0-8.0 Normal (applies to non-numeric resul ts) [facility] Protein,Urine Negative Normal (applies to non-numeric re sults) [facility] Glucose,Urine Negative Normal (applies to non-numeric re sults) [facility] Ketones,Urine Negative Normal (applies to non-numeric re sults) [facility] Blood,Urine Negative [facility] l Bilirubin,Urine Negative Normal (applies to non-numeric results) [facility] Urobilinogen,Urine 0.2-1.0 Normal (applies to non-numer ic results) [facility] Leukocyte Esterase,Urine Negative [facility] Nitrite,Urine Negative [facility] [place] [facility] RBC,Urine None Seen [facility] WBC,Urine None Seen [facility] Casts,Urine None Seen Normal (applies to non-numeric resu lts) [facility] Squamous Cells,Urine None Seen [facility] Bacteria,Urine None Seen [facility] ital ID Date Data Source [id number] 07/27/2020 01:01:00 PM EDT [facility] Name Value Range Interpretation Code Description Data [facility] rce(s) Supporting Document(s) Sodium 144 mmol/L 136-145 Normal (applies to non-numeric resul ts) [facility] Potassium 3.5-5.1 Normal (applies to non-numeric resul ts) [facility] Chloride 107 mmol/L 98-107 Normal (applies to non-numeric resul ts) [facility] Carbon Dioxide CO2 21-32 Normal (applies to non-numer ic results) [facility] Anion Gap 5.0-16.0 Normal (applies to non-numeric resul ts) [facility] BUN 14 mg/dL 7-18 Normal (applies to non-numeric results) [facility] Creatinine,Serum 0.7-1.2 Normal (applies to non-numeric results) [facility] GFR >60 Normal (applies to non-numeric results) [facility] Glucose Level 90 mg/dL 60-99 Normal (applies to non-numeric re sults) [facility] Reference range is only applicable when patient is fasting Note the following drug interference: Sulfasalazine Sulfapyridine Can see falsely depressed Can see falsely elevated result with up to 17% results with up to 11% decrease in measurement increase in measurement Recommend patients be collected for this test prior to administration of either drug. Calcium 8.5-10.1 Normal (applies to non-numeric resul ts) [facility] ID Date Data Source [id number] 07/27/2020 01:01:00 PM EDT [facility] Name Value Range Interpretation Code Description Data Tequila rce(s) Supporting Document(s) Magnesium 1.8-2.4 Normal (applies to non-numeric resul ts) [facility] ID Date Data Source [id number] 07/27/2020 09:51:00 AM EDT [facility] Name Value Range Interpretation Code Description Data Tequila rce(s) Supporting Document(s) Blood Urea Nitrogen 14 [facility] Creatinine 0.9 [facility] ([facility]) Glucose 90 [facility] Potassium 4.2 [facility] Chloride 107 [facility] Sodium 144 [facility] Glomerular filtration rate/1.73 sq M.pre dicted [Volume Rate/Area] in Serum or Plasma by Creatinine-based formula (MDRD) Laboratory test result [facility] ([facility]) Carbon Dioxide 26.6 [facility] Calcium 8.6 [facility] ID Date Data Source [id number] 07/27/2020 09:51:00 AM EDT [facility] Name Value Range Interpretation Code Description Data Tequila rce(s) Supporting Document(s) Magnesium Level 1.8 [facility] ID Date Data Source [id number] 07/18/2020 12:03:00 PM EDT [facility] Imaging Services Department Imaging Report [address], [place] [address] %(RAD)RES..mtdd.print.filter("line") Name: TRAVIS GAVIRIA : 1950 Age/Sex: 69F Ordering Provider: Ayala Rosario MD Med Rec #: [id number] Reg Status: DEP REF Room #: Date of Service: 07/18/20 Report Number: [id number] cc:Ayala Rosario MD; Migel Wallace IV, [employer] Send Report To: [id number] CT/CT Abdomen & Pelvis w Con Reason for exam: INCISIONAL HERNIA Comparison is made to 11/11/2019 FINDINGS: Lung bases are clear. No focal infiltrate or consolidation is identified. No discrete nodule or mass is identified. A small hiatal hernia isidentified. Heart appears unremarkable. There is a tiny cyst identified in the left hepatic lobe measuring 8 mm in size.This is stable as compared to the previous examination. The remainder of the liver appears unremarkable. Gallbladder is surgically absent. The pancreas is within normal limits. Spleen appears unremarkable. Bilateral adrenal glands are within normal limits. Peripelvic cysts are noted bilaterally which are not significantly changes as compared to the previous examination. Tiny cysts are identified at the posterior and lateral margin of the right kidney unchanged. There is a small cyst at the posterior aspect of the left kidney which also appears stable. There is a tiny hernia in the anterior abdominal wall to the right of midline inthe upper abdomen which is stable as compared to the previous study. There is anew hernia in the anterior abdominal wall centrally in the midline which does contain omental fat and the transverse colon is seen partially within this hernia sac. The appendix is visualized and appears unremarkable. The previously identified diverticulitis is no longer visualized. Urinary bladder appears unremarkable. 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 Osseous structures appear unremarkable. IMPRESSION: New midline hernia which contains omental fat and colon. Stable right ventral hernia. Stable bilateral renal cysts. Normal appendix. Resolved fistula and diverticulitis. Diverticulosis is present. REPORT DICTATED BY PRADEEP GARCIA, REVIEWED AND SIGNED BY DR. WAITE While performing the above CT exam, the following dose reduction techniques wereused: *Automated exposure control *Adjustment of the mA and/or kV according to patient size *Use of iterative reconstruction technique CT Dose in mGy: 13.18 Contrast Agent: Isovue 300 Amount in ml: 85 Method of Administration: Intraveneous REPORT SIGNATURE ON FILE Reported By: Quincy Waite MD <Electronically signed by Quincy Waite MD> 07/19/20 1155 Dictation Date/Time: 07/18/20 1006 Transcribed Date/Time: 07/18/20 1203 Launch Check Out: ISIDRO Name Value Range Interpretation Code Description Data Tequila rce(s) Supporting Document(s) ID Date Data Source [id number] 07/15/2020 11:20:00 AM EDT [facility] Name Value Range Interpretation Code Description Data Tequila rce(s) Supporting Document(s) Creatinine,Serum 0.7-1.2 Normal (applies to non-numeric results) [facility] GFR >60 Normal (applies to non-numeric results) [facility] ID Date Data Source [id number] 07/15/2020 11:20:00 AM EDT [facility] Name Value Range Interpretation Code Description Data Tequila rce(s) Supporting Document(s) BUN 16 mg/dL 7-18 Normal (applies to non-numeric results) [facility] Procedure Social History No Information Vital Signs ID Date Data Source UNK Name Value Range Interpretation Code Description Data Source(s) Body mass index (BMI) [Ratio] 31.8 kg/m2 31.8 k g/m2 [facility] ([facility]) [place] body weight 130 [lb_av] 130 [lb_av] [facility] ([facility]) Body weight 89.473 kg 89.473 kg [facility] ([facility]) Body surface area Derived from formula 1.99 m2 1.99 m2 [facility] ([facility]) Body height 66 [in_i] 66 [in_i] [facility] ([facility]) 5'6" Body weight 197.25 [lb_av] 197.25 [lb_av] [facility] ([facility]) Systolic blood pressure 132 mm[Hg] 132 mm[Hg] [facility] ([facility]) Diastolic blood pressure 68 mm[Hg] 68 mm[Hg] [facility] ([facility]) Body temperature 98.3 [degF] 98.3 [degF] [facility] ([facility]) Systolic blood pressure 154 mm[Hg] 154 mm[Hg] [facility] ([facility]) Diastolic blood pressure 85 mm[Hg] 85 mm[Hg] [facility] ([facility]) Body height 66 [in_i] 66 [in_i] [facility] ([facility]) 5'6" Body weight 218.12 [lb_av] 218.12 [lb_av] [facility] ([facility]) Body mass index (BMI) [Ratio] 35.2 kg/m2 35.2 k g/m2 [facility] ([facility]) [place] body weight 130 [lb_av] 130 [lb_av] [facility] ([facility]) Body weight 98.942 kg 98.942 kg [facility] ([facility]) Body surface area Derived from formula 2.07 m2 2.07 m2 [facility] ([facility]) Body height 66 [in_i] 66 [in_i] [facility] ([facility]) 5'6" Body weight 218.12 [lb_av] 218.12 [lb_av] [facility] ([facility]) Body mass index (BMI) [Ratio] 35.2 kg/m2 35.2 k g/m2 [facility] ([facility]) [place] body weight 130 [lb_av] 130 [lb_av] [facility] ([facility]) Body weight 98.942 kg 98.942 kg [facility] ([facility]) Body surface area Derived from formula 2.07 m2 2.07 m2 [facility] ([facility]) Systolic blood pressure 129 mm[Hg] 129 mm[facility]Hg] [facility] Diastolic blood pressure 78 mm[Hg] 78 mm[Hg] [facility] ([facility]) Heart rate 67 /min 67 /min [facility] ([facility]) Body height 66 [in_i] 66 [in_i] [facility] ([facility]) 5'6" Body weight 218.00 [lb_av] 218.00 [lb_av] [facility] Body mass index (BMI) [Ratio] 35.2 kg/m2 35.2 k g/m2 [facility] ([facility]) [place] body weight 130 [lb_av] 130 [lb_av] [facility] ([facility]) Body weight 98.885 kg 98.885 kg [facility] ([facility]) Body surface area Derived from formula 2.07 m2 2.07 m2 [facility] ([facility]) ID Date Data Source [id number] 08/05/2021 08:32:00 AM EDT [facility] Name Value Range Interpretation Code Description Data Source(s) Weight Measurement Method 8 8 [facility] Weight 3168 3168 [facility] pital Temperature Source 7 7 [facility] Temperature 97 97 [facility] spital Respiratory Effort 1 1 [facility] Respiratory Rate 16 16 [facility] Pulse Assessment Method 4 4 G [facility] Pulse Rate 77 77 [facility] pital Height 64 64 [facility] pital Blood Pressure 148/79 148/79 [facility] Weight Measurement Method 8 8 [facility] Weight 3168 3168 [facility] pital Temperature Source 7 7 [facility] Temperature 97 97 [facility] spital Respiratory Effort 1 1 [facility] Respiratory Rate 16 16 [facility] Pulse Assessment Method 4 4 G [facility] Pulse Rate 77 77 [facility]ital [facility] 64 64 [facility] 148/79 148/79 [facility] ID Date Data Source [id number] 04/26/2021 10:32:00 AM EDT [facility] Name Value Range Interpretation Code Description Data Source(s) Weight (Calculated Kilograms) 89.81 89.81 [facility] Height (Calculated Centimeters) 162.56 162. 56 [facility] Body Mass Index (BMI) 34.0 34.0 [facility] ID Date Data Source [id number] 04/11/2021 09:20:00 AM T [facility] Name Value Range Interpretation Code Description Data Source(s) Weight Measurement Method 1 1 [facility] Weight (Calculated Kilograms) 89.81 89.81 [facility] Weight 3166.4 3166.4 [facility] Temperature Source 7 7 [facility] Temperature 97.0 97.0 [facility] Respiratory Effort 1 1 [facility] Respiratory Rate 18 18 [facility] Pulse Assessment Method 4 4 [facility] Pulse Rate 87 87 [facility] Height (Calculated Centimeters) 162.56 162. 56 [facility] Height 64 64 [facility] Blood Pressure 115/75 115/75 [facility] Body Mass Index (BMI) 34.0 34.0 [facility] Weight Measurement Method 1 1 [facility] Weight (Calculated Kilograms) 89.81 89.81 [facility] Weight 3166.4 3166.4 [facility] Temperature Source 7 7 [facility] Temperature 97.0 97.0 [facility] Respiratory Effort 1 1 [facility] Respiratory Rate 18 18 [facility] Pulse Assessment Method 4 4 [facility] Pulse Rate 87 87 [facility] Height (Calculated Centimeters) 162.56 162. 56 [facility] Height 64 64 [facility] Blood Pressure 115/75 115/75 [facility] Body Mass Index (BMI) 34.0 34.0 [facility] Weight Measurement Method 1 1 [facility] Weight (Calculated Kilograms) 89.81 89.81 [facility] Weight 3168 3168 [facility] Temperature Source 7 7 [facility] Temperature 99 99 [facility] Respiratory Effort 1 1 [facility] Respiratory Rate 17 17 [facility] Pulse Assessment Method 4 4 [facility] Pulse Rate 89 89 [facility] Height (Calculated Centimeters) 162.56 162. 56 [facility] Height 64 64 [facility] Blood Pressure 138/79 138/79 [facility] Body Mass Index (BMI) 34.0 34.0 [facility] Weight Measurement Method 1 1 [facility] Weight (Calculated Kilograms) 89.81 89.81 [facility] Weight 3168 3168 [facility] Temperature Source 7 7 [facility] Temperature 99.1 99.1 [facility] Respiratory Effort 1 1 [facility] Respiratory Rate 19 19 [facility] Pulse Assessment Method 4 4 [facility] Pulse Rate 58 58 [facility] Height (Calculated Centimeters) 162.56 162. 56 [facility] Height 64 64 [facility] Blood Pressure 101/55 101/55 [facility] Body Mass Index (BMI) 34.0 34.0 [facility] ID Date Data Source [id number] 04/07/2021 10:40:00 AM EDT Hi [facility] Name Value Range Interpretation Code Description Data Source(s) Weight Measurement Method 8 8 [facility] Weight 3056 3056 [facility] Temperature Source 7 7 [facility] Temperature 98 98 [facility] spital Respiratory Effort 1 1 [facility] Respiratory Rate 16 16 [facility] Pulse Assessment Method 4 4 G [facility] Pulse Rate 76 76 [facility] pital Height 64 64 [facility] Blood Pressure 95/51 95/51 [facility] Weight Measurement Method 8 8 [facility] Weight 3056 3056 [facility] pital Temperature Source 7 7 [facility] Temperature 96.1 96.1 [facility] spital Respiratory Effort 1 1 [facility] Respiratory Rate 16 16 [facility] Pulse Assessment Method 4 4 G [facility] Pulse Rate 80 80 [facility] pital Height 64 64 [facility] pital Blood Pressure 105/61 105/61 [facility]
[2021-08-23] MEDS ORDERED: propofoL 200 MG/20 ML VIAL As Ordered ONE (10:11)
--- NOTE | 2021-08-23 10:35 | ROOR ---
Patient Name: Maria De Jesus Claudio Procedure Date: 08/23/2021 9:54 AM Date of : 1950 Age: 70 Room: [facility] Gender: Female Note Status: Finalized Procedure: Colonoscopy Indications: Follow-up endoscopy after surgery, Monitoring for anastomosis integrity Providers: Balwinder Nolen MD Referring MD: Og ANTONY NP Requesting Provider: Medicines: Monitored Anesthesia Care Complications: No immediate complications. Procedure: Pre-Anesthesia Assessment: - Prior to the procedure, a History and Physical was performed, and patient medications and allergies were reviewed. The patient is competent. The risks and benefits of the procedure and the sedation options and risks were discussed with the patient. All questions were answered and informed consent was obtained. Patient identification and proposed procedure were verified by the physician, the nurse and the anesthesiologist in the endoscopy suite. Mental Status Examination: alert and oriented. Airway Examination: normal oropharyngeal airway and neck mobility. Respiratory Examination: clear to auscultation. CV Examination: normal. Prophylactic Antibiotics: The patient does not require prophylactic antibiotics. Prior Anticoagulants: The patient has taken no previous anticoagulant or antiplatelet agents. ASA Grade Assessment: III - A patient with severe systemic disease. After reviewing the risks and benefits, the patient was deemed in satisfactory condition to undergo the procedure. The anesthesia plan was to use monitored anesthesia care (MAC). Immediately prior to administration of medications, the patient was re-assessed for adequacy to receive sedatives. The heart rate, respiratory rate, oxygen saturations, blood pressure, adequacy of pulmonary ventilation, and response to care were monitored throughout the procedure. The physical status of the patient was re-assessed after the procedure. The Colonoscope was introduced through the anus and advanced to the cecum, identified by appendiceal orifice and ileocecal valve. The colonoscopy was somewhat difficult due to a tortuous colon. The patient tolerated the procedure well. The quality of the bowel preparation was good. Findings: The perianal and digital rectal examinations were normal. Multiple medium-mouthed diverticula were found in the descending colon, transverse colon and ascending colon. There was no evidence of diverticular bleeding. There is no endoscopic evidence of inflammation, mass, polyps or stenosis in the entire colon. There was evidence of a prior end-to-end colo-colonic anastomosis in the recto-sigmoid colon. This was patent and was characterized by healthy appearing mucosa. The retroflexed view of the distal rectum and anal verge was normal and showed no anal or rectal abnormalities. Impression: - Moderate diverticulosis in the descending colon, in the transverse colon and in the ascending colon. There was no evidence of diverticular bleeding. - Patent end-to-end colo-colonic anastomosis, characterized by healthy appearing mucosa. - The distal rectum and anal verge are normal on retroflexion view. - No specimens collected. Recommendation: - Discharge patient to home (ambulatory). - High fiber diet indefinitely. - Repeat colonoscopy in 10 years for screening purposes. Procedure Code(s): --- Professional --- 41977, Colonoscopy, flexible; diagnostic, including collection of specimen(s) by brushing or washing, when performed (separate procedure) Diagnosis Code(s): --- Professional --- Z98.0, Intestinal bypass and anastomosis status Z09, Encounter for follow-up examination after completed treatment for conditions other than malignant neoplasm K57.30, Diverticulosis of large intestine without perforation or abscess without bleeding CPT copyright 2019 [employer]. All rights reserved. The codes documented in this report are preliminary and upon remote coders review may be revised to meet current compliance requirements. Balwinder Nolen MD Balwinder Nolen MD 08/23/2021 10:34:32 AM Electronically signed by Balwinder Nolen MD Number of Addenda: 0 Note Initiated On: 08/23/2021 9:54 AM Estimated Blood Loss: Estimated blood loss: none.
[2021-08-23 10:59] VITALS: BP 181/77
== END 2021-08-23 11:25 | disposition home or self-care (01) ==
LOC: M OPP 08:37
PROVIDERS: ATTEND Surgery
DX: K57.30 Diverticulosis of large intestine without perforation or abscess without bleeding (principal); Z98.0 Intestinal bypass and anastomosis status; Z09 Encounter for follow-up examination after completed treatment for conditions other than malignant neoplasm

== ENCOUNTER 2021-12-06 06:22 | Day surgery (SDC) | payer MEDICARE ==
[~2021-12-06] VITALS: Ht 162.6 cm; Wt 99.3 kg
[2021-12-06] VITALS (7 sets, daily range): BP systolic 121–153; BP diastolic 71–89; O2SAT 94
[~2021-12-06 06:22] MED LIST changes: +CelecoXIB 400 MG CAP PO ONE; +HEPARIN SOD (PORCINE) 5000UNITS/ML 1ML VIAL/SYRINGE SQ ONE; +LIDOCAINE 1% MDV 20ML VIAL SQ PRN; -LIDOCAINE 2% 100MG/5ML SDV (FOR ANES.) As Ordered ONE; +LISI10TA22 PO; +LOSA100T45 PO; -LOSA100T50 PO; +LR 1,000 ML IV ONE; -NS 1,000 ML IV ONE; +OMEP40CA5 PO; +ceFAZolin SOD 2 GM in IV 1 EA IV ONE; -propofoL 200 MG/20 ML VIAL As Ordered ONE
[2021-12-06] MEDS ORDERED: ROCURONIUM BROMIDE 50 MG/5 ML VIAL As Ordered ONE ×3 (07:14→12:27)
[2021-12-06] MEDS ORDERED: propofoL 200 MG/20 ML VIAL As Ordered ONE (07:14)
[2021-12-06] MEDS ORDERED: LIDOCAINE 2% 100MG/5ML SDV (FOR ANES.) As Ordered ONE (07:14)
[2021-12-06] MEDS ORDERED: fentaNYL 100 MCG/2 ML INJECTION As Ordered ONE ×2 (07:14→13:26)
[2021-12-06] MEDS ORDERED: MIDAZOLAM INJ 2MG/2ML VIAL (J2250 PER 1MG) As Ordered ONE (07:14)
[2021-12-06] MEDS ORDERED: LIDOCAINE 1% SDV 30ML VIAL As Ordered ONE (07:22)
[2021-12-06] MEDS ORDERED: BUPIVACAINE LIPOSOME/PF 1.3% 20ML VIAL (13.3MG/ML)(EXPAREL)(C9290 PER1MG) As Ordered ONE (07:22)
[2021-12-06] MEDS ORDERED: BUPIVACAINE HCL 0.25% 30ML VIAL As Ordered ONE (07:22)
[2021-12-06] MEDS ORDERED: BUPIVACAINE HCL 0.25% 10ML VIAL As Ordered ONE (07:22)
[2021-12-06] MEDS ORDERED: dexameTHASONE 4 MG/ML 1ML VIAL (J1100 PER 1MG) As Ordered ONE (07:57)
[2021-12-06] MEDS ORDERED: ONDANSETRON 4MG/2ML VIAL As Ordered ONE (08:08)
[2021-12-06] MEDS ORDERED: SUGAMMADEX SODIUM 500 MG/5 ML VIAL (BRIDION) As Ordered ONE ×2 (08:08→08:09)
[2021-12-06] MEDS ORDERED: HYDROmorphone HCL 2MG/ML 1ML VIAL As Ordered ONE (08:08)
[2021-12-06] MEDS ORDERED: ACETAMINOPHEN 1000MG 100ML IV BTL (OFIRMEV) (J0131 PER 10MG) As Ordered ONE (10:24)
[2021-12-06] MEDS ORDERED: ceFAZolin 2 GM/D5W 50 ML IV BAG (J0690 PER 500MG) As Ordered ONE (12:09)
[2021-12-06] MEDS ORDERED: PERCOCET 5MG/325MG TAB PO PRN ×2 (14:20)
[2021-12-06] MEDS ORDERED: ONDANSETRON 4MG/2ML VIAL IV PRN ×2 (14:20→14:25)
[2021-12-06] MEDS ORDERED: ACETAMINOPHEN TAB 650MG DOSE (2X325MG) PO PRN (14:20)
[2021-12-06] MEDS ORDERED: oxyCODONE 5MG TAB PO PRN (14:25)
[2021-12-06] MEDS ORDERED: LR 1,000 ML IV SCH (14:25)
[2021-12-06] MEDS ORDERED: fentaNYL 100 MCG/2 ML INJECTION IV PRN (14:25)
[2021-12-06] MEDS: KETOROLAC 30 MG/ML 1ML VIAL IV SCH ×2 (15:00→20:29)
[2021-12-06] MEDS: LR 1,000 ML IV SCH ×2 (17:09→22:37)
[2021-12-06] MEDS: AZELASTINE 137MCG NASAL SPY 30 ML (ASTELIN) SCH (20:28)
[2021-12-06] MEDS: HEPARIN SOD (PORCINE) 5000UNITS/ML 1ML VIAL/SYRINGE SC SCH (20:28)
[2021-12-06] MEDS: SODIUM CHLORIDE NASAL 0.65% SPRAY BTL (OCEAN) SCH (20:28)
[2021-12-06] MEDS: SENOKOT S TAB PO SCH (20:28)
[2021-12-06] MEDS: oxyBUTYnin 5 MG TAB PO SCH (20:29)
[2021-12-06] MEDS ORDERED: ATORVASTATIN 10 MG TAB PO SCH (21:00)
[2021-12-07 01:00] VITALS: BP 146/82
[2021-12-07] MEDS: KETOROLAC 30 MG/ML 1ML VIAL IV SCH ×3 (03:14→15:22)
[2021-12-07 05:10] VITALS: BP 137/80
[2021-12-07] MEDS: HEPARIN SOD (PORCINE) 5000UNITS/ML 1ML VIAL/SYRINGE SC SCH ×2 (05:12→15:22)
[2021-12-07 08:56] LABS: HEMATOCRIT 32.8 % (36.0-47.0); HEMOGLOBIN 10.7 g/dl (12.0-15.5); MEAN CORPUSCULAR HEMOGLOBIN 29.4 pg (27.0-33.0); MEAN CORPUSCULAR HGB CONC 32.6 g/dl (32.0-36.5); MEAN CORPUSCULAR VOLUME 90.1 fl (80.0-96.0); PLATELET COUNT, AUTOMATED 130 10^3/uL (150-450); RED BLOOD COUNT 3.64 10^6/uL (4.00-5.40); WHITE BLOOD COUNT 5.5 10^3/uL (4.0-10.0)
[2021-12-07] MEDS ORDERED: METOPROLOL SUCC *XL* 25MG TAB (TopROL *XL*) PO SCH (09:00)
[2021-12-07] MEDS: SODIUM CHLORIDE NASAL 0.65% SPRAY BTL (OCEAN) SCH (09:00)
[2021-12-07] MEDS ORDERED: OMEPRAZOLE 20MG CAP PO SCH (09:00)
[2021-12-07 09:17] LABS: ALBUMIN 3.1 GM/DL (3.2-5.2); BILIRUBIN,TOTAL 0.6 MG/DL (0.2-1.0); CALCIUM LEVEL 8.8 MG/DL (8.8-10.2); GLOMERULAR FILTRATION RATE 58.2 (>39); POTASSIUM SERUM 3.8 MEQ/L (3.5-5.1); TOTAL PROTEIN 5.7 GM/DL (6.4-8.2)
[2021-12-07 09:18] LABS: CK-MB VALUE MASS 1.8 NG/ML (<3.6); MB/CK RELATIVE INDEX 0.74 (< OR =4)
[2021-12-07] MEDS: oxyBUTYnin 5 MG TAB PO SCH (09:36)
[2021-12-07] MEDS: SENOKOT S TAB PO SCH (09:36)
[2021-12-07] MEDS: LR 1,000 ML IV SCH (09:40)
[2021-12-07 09:41] VITALS: BP 137/72
[2021-12-07 10:00] VITALS: BP 137/72
[2021-12-07] MEDS: AZELASTINE 137MCG NASAL SPY 30 ML (ASTELIN) SCH (11:15)
[2021-12-07 11:49] VITALS: O2SAT 96
[2021-12-07 12:01] LABS: BASO % 0.4 % (0.0-1.0); EOS % 0.6 % (0.0-3.0); LYMPH # 1.3 10^3/uL (1.5-5.0); LYMPH % 24.7 % (24.0-44.0); MONO # 0.5 10^3/uL (0.0-0.8); MONO % 9.5 % (2.0-8.0); NEUTROPHILS # 3.5 10^3/uL (1.5-8.5); NEUTROPHILS % 64.4 % (36.0-66.0)
[2021-12-07] MEDS ORDERED: KETO10TAB PO (12:45)
[2021-12-07] MEDS ORDERED: PERCOCET PO (12:45)
== END 2021-12-07 16:30 | disposition home or self-care (01) ==
LOC: M SDC 06:22 → M MSPAV 16:50 → M SDC 12-07 16:30
PROVIDERS: ATTEND Surgery
DX: K43.2 Incisional hernia without obstruction or gangrene (principal); M62.08 Separation of muscle (nontraumatic), other site; I10 Essential (primary) hypertension; E78.5 Hyperlipidemia, unspecified; K21.9 Gastro-esophageal reflux disease without esophagitis; Z79.899 Other long term (current) drug therapy
CPT/HCPCS: 15734; 36415; 49654; 80053; 82550; 82553; 84484; 85027; 93005; 96372; 96374; 96375; 96376; C1781; C9290; J0131; J0690; J1100; J1170; J1644; J1885; J2250; J2405; J3010; S2900

== ENCOUNTER 2024-03-31 10:42 | Day surgery (SDC) | payer MEDICARE ==
[~2024-03-31] VITALS: Ht 165.1 cm; Wt 92.0 kg
[~2024-03-31 10:42] MED LIST changes: +AMLO1TAB24 PO; +CVS1CAP2 PO; -CelecoXIB 400 MG CAP PO ONE; -HEPARIN SOD (PORCINE) 5000UNITS/ML 1ML VIAL/SYRINGE SQ ONE; +KETO10TAB PO; -LIDOCAINE 1% MDV 20ML VIAL SQ PRN; -LOSA100T45 PO; +LOSA100T46 PO; -LR 1,000 ML IV ONE; -OXYB5TAB10 PO; +OXYB5TAB14 PO; +PERCOCET PO; -ceFAZolin SOD 2 GM in IV 1 EA IV ONE
[2024-03-31] MEDS: NS 1,000 ML IV ONE (11:35)
[2024-03-31] MEDS ORDERED: LIDOCAINE 2% 100MG/5ML SDV (FOR ANES.) As Ordered ONE (11:41)
[2024-03-31] MEDS ORDERED: propofoL 200 MG/20 ML VIAL As Ordered ONE (11:41)
[2024-03-31 13:48] VITALS: TEMP 97.4
[2024-03-31 14:06] VITALS: BP 166/61; O2SAT 98
== END 2024-03-31 14:18 | disposition home or self-care (01) ==
LOC: M OPP 10:42
PROVIDERS: ATTEND Surgery
DX: D12.6 Benign neoplasm of colon, unspecified (principal); K64.4 Residual hemorrhoidal skin tags; K57.30 Diverticulosis of large intestine without perforation or abscess without bleeding; Z98.0 Intestinal bypass and anastomosis status; R10.32 Left lower quadrant pain; Z87.891 Personal history of nicotine dependence; Z79.02 Long term (current) use of antithrombotics/antiplatelets; Z79.899 Other long term (current) drug therapy; Z88.8 Allergy status to other drugs, medicaments and biological substances; Z91.048 Other nonmedicinal substance allergy status